=== PATIENT | female | born 1940 | race Caucasian/White ===

== ENCOUNTER → 2019-05-11 | Outpatient (CLI) | payer MEDICARE, OTHER ==
[~2019-05-11] MED LIST: ACETAMINOPHEN325 M1 PO; AMIODARONE HCL200 MG PO; CEFTRIAXONE SOD 1 GM/NS 50 ML 50 ML IV ONE; CLONIDINE HCL0.1 MG PO; CRESTOR10 MG PO; DULCOLAX SUPP10 MG RC; ELIQUIS PO; GABAPENTIN300 MG PO; GAS-X62.5 MG PO; HYDRALAZINE HCL 20 MG/ML VIAL ONE; HYDRALAZINE HCL25 MG PO; IOPAMIDOL 610MG/1ML 300 MG/ML VIAL IV ONE; LACTULOSE20 GM/30 M PO; LEVOTHYROXINE25 MCG PO; LISINOPRIL-HCT1 EAC1 PO; LISINOPRIL10 MG PO; MEDROL4 MG/DOSE- PO; METHOCARBAMOL750 MG PO; METOPROLOL TART25 MG PO; NORCO 10-325 T1 EACH PO; PANTOPRAZOLE SO40 MG PO; PLAVIX75 MG PO; SENNA LAXATIVE1 EACH PO; STRESS FORMULA1 EAC4 PO; ZANAFLEX4 MG PO
[2019-05-11 13:16] LABS: BASOPHILS # (AUTO) 0.1 (0.0-0.1); BASOPHILS % 0.7 % (0.0-1.0); EOSINOPHILS # (AUTO) 0.1 (0.0-0.4); EOSINOPHILS % 0.7 % (0.0-6.0); HEMATOCRIT 41.4 % (34.2-44.1); HEMOGLOBIN 14.4 g/dL (12.0-16.0); LYMPHOCYTES # (AUTO) 1.6 (1.0-3.2); LYMPHOCYTES % 23.2 % (18.0-39.1); MEAN CORPUSCULAR HEMOGLOBIN 30.8 pg (28-32); MEAN CORPUSCULAR HGB CONC 34.8 g/dL (31-35); MEAN CORPUSCULAR VOLUME 88.7 fL (81-99); MONOCYTES # (AUTO) 0.6 (0.2-0.8); MONOCYTES % 8.2 % (4.4-11.3); NEUTROPHILS # (AUTO) 4.7 (2.1-6.9); NEUTROPHILS % 66.9 % (38.7-80.0); PLATELET COUNT 195 x10e3/uL (140-360); RED BLOOD COUNT 4.67 x10e6/uL (3.6-5.1); RED CELL DISTRIBUTION WIDTH 13.5 % (11.7-14.4)
[2019-05-11 13:25] LABS: ANION GAP 13.6 mmol/L (8-16); CALCIUM 9.5 mg/dL (8.4-10.2); CREATININE, SERUM 1.2 mg/dL (0.57-1.11); POTASSIUM 3.6 mmol/L (3.5-5.1)
--- NOTE | 2019-05-11 14:09 | Diagnostic Imaging Report ---
EXAM: CHEST 2 VIEWS, PA and lateral DATE: 05/11/2019 Time stamp on exam: 1:13 PM INDICATION: Preoperative for abdominal surgery COMPARISON: 07/01/2017 FINDINGS: LINES/TUBES: There are wire sutures. Orthopedic hardware present involving the lower thoracic and upper lumbar spine LUNGS: No consolidations or edema. PLEURA: No effusions or pneumothorax. HEART AND MEDIASTINUM: Heart is enlarged. There is tortuosity of the thoracic aorta. BONES AND SOFT TISSUES: No acute findings. Degenerative changes of the spine. IMPRESSION: Cardiomegaly without evidence of decompensation. Signed by: Dr. Zane Davis DO on 05/11/2019 2:05 PM
--- OUTSIDE RECORDS SUMMARY | 2019-05-15 09:51 | XMS REPORT | Continuity of Care Document ---
Author Author [facility] Organization Interface Address Unknown Phone Unavailable Problems Problem Status Onset Date Classification Date Reported Comments Source STENOSIS Active 10/27/2016 [facility] BACK PAIN Active 08/10/2016 [facility] Thyroid disease Resolved 11/21/2012 Problem 08/13/2017 [facility] Abnormal EKG Active Problem 05/03/2019 [facility] Swelling of lower extremity Active Problem 05/03/2019 Candelario Shepard Varicose veins of bilateral lower extremities with other complications Active Problem 05/03/2019 Candelario Shepard Low back pain Active Problem 05/03/2019 Candelario Shepard HENDERSON Active Problem 05/03/2019 Candelario Shepard Encounter for pre-operative cardiovascular clearance Active Problem 05/03/2019 Candelario Shepard 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, unspecified whether [place] or transplanted heart Active Problem 05/03/2019 Candelario Shepard Atherosclerosis of [place] coronary artery of [place] heart without angina pectoris Active Problem 05/03/2019 Candelario Shepard Left ventricular diastolic dysfunction with preserved systolic function Active Problem 05/03/2019 Candelario Shepard Atherosclerosis of [place] arteries of extremity with intermittent claudication Active Problem 05/03/2019 Candelario Shepard Atherosclerosis of coronary artery bypass graft without angina pectoris Active Problem 05/03/2019 Candelario Shepard Hypercholesteremia Active Problem 05/03/2019 Candelario Shepard HTN, Benign Active Problem 07/30/2015 Candelario Shepard Shortness of breath Active Problem 07/30/2015 Candelario Shepard Atrial fibrillation Active Problem 07/30/2015 Cnadelario Shepard CABG Status Active Problem 07/30/2015 Candelario Shepard Atherosclerotic heart disease [place] coronary artery w/angina pectoris Active Problem 07/30/2015 Candelario Shepard Coronary atherosclerosis of unspecified type of bypass graft Active Problem 07/30/2015 Candelario Shepard Atherosclerosis of [place] arteries of the extremities with intermittent claudication Active Problem 07/30/2015 Candelario Shepard Angina Active Problem 07/30/2015 Candelario Shepard Arteriosclerosis of carotid artery Active Problem 07/30/2015 Candelario Shepard Chest Pain Active Problem 07/30/2015 Candelario Shepard Abnormal EKG Active Problem 07/30/2015 Candelario Shepard Swelling of limb Active Problem 07/30/2015 Candelario Shepard Hypercholesterolemia Active Problem 07/30/2015 Candelario Shepard PTCA Status Active Problem 07/30/2015 Candelario Shepard Sinus Bradycardia Active Problem 07/30/2015 Candelario Shepard Status post ablation of incompetent vein using laser Active Problem 05/03/2019 Candelario Shepard LAE Active Problem 05/03/2019 Candelario Shepard Nonrheumatic mitral insufficiency Active Problem 07/13/2016 Candelario Shepard Hypercholesteremia Active Problem 07/13/2016 Candelario Shepard Nonrheumatic tricuspid valve disorder Active Problem 07/13/2016 Candelario Shepard Diastolic dysfunction, left ventricle Active Problem 07/30/2015 Candelario Shepard Acute mitral insufficiency Active Problem 07/30/2015 Candelario Shepard Varicose veins of lower extremities with complications Active Problem 07/30/2015 Candelario Shepard Nonrheumatic tricuspid insufficiency Active Problem 07/30/2015 Candelario Shepard Essential hypertension Active Problem 05/03/2019 Candelario Shepard Atherosclerosis of [place] coronary artery of [place] heart with angina pectoris Active Problem 05/03/2019 Candelario Shepard Arteriosclerosis of both carotid arteries Active Problem 05/03/2019 Candelario Shepard Acquired stenosis of aortic valve Active Problem 05/03/2019 Candelario Shepard Personal history of other diseases of the circulatory system Active Problem 05/03/2019 Candelario Shepard Lumbago with sciatica, right side Active Problem 05/03/2019 Candelario Shepard Other chronic pain Active Problem 05/03/2019 Candelario Shepard Chronic a-fib Active Problem 05/03/2019 Candelario Shepard Nonrheumatic aortic valve stenosis Active Problem 05/03/2019 Candel[facility] Shepard Lumbago with sciatica, left side Active Problem 05/03/2019 Candelario Shepard Persistent atrial fibrillation Active Problem 05/03/2019 [facility] DDD , thoracolumbar(<span ID="[id number]">Confirmed</span>) Active Problem 08/13/2017 [facility] Diverticulosis Resolved Problem 08/13/2017 [facility] Stomach ulcer Active Problem 08/13/2017 [facility] GERD (<span ID="[id number]">Confirmed</span>) Active Problem 08/13/2017 [facility] HLD (<span ID="[id number]">Confirmed</span>) Active Problem 08/13/2017 [facility] HTN (<span ID="[id number]">Confirmed</span>) Active Problem 08/13/2017 [facility] Depression (<span ID="[id number]">Confirmed</span>) Active Problem 08/13/2017 [facility] Neuropathy Active Problem 08/13/2017 [facility] Hiatal hernia Active Problem 08/13/2017 [facility] OA (<span ID="[id number]">Confirmed</span>) Active Problem 08/13/2017 [facility] Spinal stenosis Active Problem 08/13/2017 [facility] Tingling in extremities<sup>1</sup> Active Problem 08/13/2017 [facility] Urinary incontinence in female Active Problem 08/13/2017 [facility] STENOSIS OF UNSPECIFIED LACRIMAL CANALIC Active [facility] Medications Medication Details Route Status Patient Instructions Ordering Provider Order Date Source Docusate Sodium 100 MG Oral Capsule 100 mg=1 cap, PO, BID, # 30 cap, 0 Refill(s) Active 11/08/2016 [facility] tizanidine 4 MG Oral Capsule [Zanaflex] 4 mg=1 cap, PO, TID, # 40 cap, 0 Refill(s) Active 11/08/2016 [facility] potassium phosphate + sodium chloride 0.9% INJ 250 mL 15 mmol, 5 mL, Route: IVPB, Drug form: INJ, ONCE, Dosing Weight 97.273, kg, Start date: 11/08/16 10:10:00 ELECTRIC ARC WELDER, Stop date: 11/08/16 10:10:00 CSTNotes: (Same as: K Phosphate.) 1 mMol phoshate has 1.47 mEq potassium Infuse over 4 hours Inactive 11/08/2016 [facility] potassium chloride 40 mEq, Route: PO, Drug form: ERTAB, ONCE, Dosing Weight 97.273, kg, Start date: 11/08/16 10:09:00 ELECTRIC AR[employer] WELDER, Stop date: 11/08/16 10:09:00 ELECTRIC ARC WELDER Inactive 11/08/2016 [facility] Reglan 10 mg, 2 mL, Route: IV, Drug form: INJ, ONCE, Dosing Weight 97.273, kg, Start date: 11/08/16 0:44:00 ELECTRIC AR[employer] WELDER, Stop date: 11/08/16 0:44:00 CSTNotes: (Same as: Reglan) Inactive 11/08/2016 [facility] Dulcolax Laxative 10 mg, 1 supp, Route: WI, Drug form: SUPP, ONCE, Dosing Weight 97.273, kg, Priority: NOW, Start date: 11/07/16 14:28:00 ELECTRIC AR[employer] WELDER, Stop date: 11/07/16 14:28:00 CSTNotes: (Same As: Dulcolax, Bisco- Lax) Inactive 11/07/2016 [facility] magnesium citrate 58.2 MG/ML Oral Solution 300 ml, Route: PO, Drug Form: LIQ, Dosing Weight 97.273, kg, ONCE, NOW, Start date: 11/07/16 14:28:00 ELECTRIC AR[employer] WELDER, Stop date: 11/07/16 14:28:00 CSTNotes: (Same as: Citrate of Magnesia) Concentration: 1.745 gm / 30 mL Inactive 11/07/2016 [facility] Calcium Gluconate 1,000 mg, 10 mL, Route: IVPB, Drug form: INJ, ONCE, Dosing Weight 97.273, kg, Start date: 11/07/16 7:53:00 ELECTRIC AR[employer] WELDER, Stop date: 11/07/16 7:53:00 CSTNotes: WASTE: F/P - Sink; Medication Review - Pomogatelsh Bin Inactive 11/07/2016 [facility] potassium chloride 20 mEq oral tablet, extended release 20 mEq, 1 tab, Route: PO, Drug form: ERTAB, ONCE, Dosing Weight 97.273, kg, Start date: 11/07/16 7:52:00 ELECTRIC AR[employer] WELDER, Stop date: 11/07/16 7:52:00 CSTNotes: (Same as: K- Dur 20) "Do Not Crush" With food and full glass of water Inactive 11/07/2016 [facility] Sodium Chloride 0.154 MEQ/ML Injectable Solution 1,000 mL, 1,000 ml/hr, Infuse Over: 1 hr, Route: IV, 1,000, Drug form: INJ, ONCE, Priority: STAT, Dosing Weight 97.273 kg, Start date: 11/06/16 11:32:00 ELECTRIC AR[employer] WELDER, Duration: 1 doses or times, Stop date: 11/06/16 11:32:00 ELECTRIC ARC WELDER Inactive 11/06/2016 [facility] Calcium Gluconate 1,000 mg, 10 mL, Route: IVPB, Drug form: INJ, ONCE, Dosing Weight 97.273, kg, Start date: 11/06/16 11:19:00 ELECTRIC AR[employer] WELDER, Stop date: 11/06/16 11:19:00 CSTNotes: WASTE: F/P - Sink; RIDERSsh Bin Inactive 11/06/2016 [facility] Protonix 40 mg, 1 tab, Route: PO, Drug form: ECTAB, Daily, Dosing Weight 97.273, kg, Start date: 11/06/16 9:00:00 ELECTRIC AR[employer] WELDER, Duration: 30 day, Stop date: 12/05/16 9:00:00 CSTNotes: Tablet should not be chewed or crushed. (Same as: Protonix) No Longer Active 11/06/2016 [facility] Hydralazine Hydrochloride 50 MG Oral Tablet 50 mg, 2 tab, Route: PO, Drug form: TAB, Daily, Dosing Weight 97.273, kg, Start date: 11/06/16 9:00:00 ELECTRIC AR[employer] WELDER, Duration: 30 day, Stop date: 12/05/16 9:00:00 CSTNotes: (Same as: Apresoline) May interfere w/enteral feedings Take With Food. No Longer Active 11/06/2016 [facility] ceFAZolin (SCIP) 2 gm, 100 mL, Route: IVPB, Drug form: INJ, ABXQ8H, Dosing Weight 97.273, kg, Start date: 11/05/16 17:30:00 ELECTRIC AR[employer] WELDER, Duration: 3 doses or times, Stop date: 11/06/16 9:30:00 CSTNotes: Same as: Ancef No Longer Active 11/05/2016 [facility] hydrochlorothiazide 25 mg oral tablet 12.5 mg, 0.5 tab, Route: PO, Drug form: TAB, QPM, Start date: 11/05/16 17:00:00 ELECTRIC AR[employer] WELDER, Duration: 30 day, Stop date: 12/04/16 17:00:00 CSTNotes: (Same as: Hydrodiuril) With food. No Longer Active 11/05/2016 [facility] Docusate 100 mg, 1 cap, Route: PO, Drug form: CAP, BID, Dosing Weight 96.364, kg, Start date: 11/05/16 17:00:00 ELECTRIC AR[employer] WELDER, Duration: 30 day, Stop date: 12/05/16 9:00:00 CSTNotes: (Same as: Colace) (Do Not Crush) No Longer Active 11/05/2016 [facility] Prinivil 10 mg, 1 tab, Route: PO, Drug form: TAB, QPM, Start date: 11/05/16 17:00:00 ELECTRIC AR[employer] WELDER, Duration: 30 day, Stop date: 12/04/16 17:00:00 CSTNotes: (Same as: Prinivil, Zestril) No Longer Active 11/05/2016 [facility] Docusate Sodium 100 MG Oral Capsule 100 mg, Route: PO, Drug form: CAP, BID, Dosing Weight 97.273, kg, Start date: 11/05/16 17:00:00 ELECTRIC ARC WELDER, Duration: 30 day, Stop date: 12/05/16 9:00:00 ELECTRIC ARC WELDER Inactive 11/05/2016 [facility] metoprolol tartrate 12.5 mg, 0.5 tab, Route: PO, Drug form: TAB, BID, Dosing Weight 97.273, kg, Start date: 11/05/16 17:00:00 ELECTRIC ARC WELDER, Duration: 30 day, Stop date: 12/05/16 9:00:00 CSTNotes: (Same as: Lopressor) No Longer Active 11/05/2016 [facility] Hydrochlorothiazide 25 MG / Lisinopril 20 MG Oral Tablet 0.5 tab, Route: PO, Drug Form: TAB, Dosing Weight 97.273, kg, QPM, Start date: 11/05/16 17:00:00 ELECTRIC AR[employer] WELDER, Duration: 30 day, Stop date: 12/04/16 17:00:00 ELECTRIC ARC WELDER Inactive 11/05/2016 [facility] Zanaflex 4 mg, 1 tab, Route: PO, Drug form: TAB, Q8H, Dosing Weight 97.273, kg, Start date: 11/05/16 16:00:00 ELECTRIC AR[employer] WELDER, Duration: 30 day, Stop date: 12/05/16 8:00:00 CSTNotes: (Same As: Zanaflex) No Longer Active 11/05/2016 [facility] Lactated Ringers 1,000 mL 1,000 mL, Rate: 999 ml/hr, Infuse over: 1 hr, Route: IV, Dosing Weight 97.273 kg, Total Volume: 1,000, Start date: 11/05/16 15:53:00 ELECTRIC AR[employer] WELDER, Duration: 1 doses or times, Stop date: 11/05/16 16:52:00 ELECTRIC ARC WELDER Inactive 11/05/2016 [facility] Hydromorphone 15 mg, 30 mL, Route: IV, Initial Loading Dose: 0.4mg, [employer] STATION OPERATOR Dose: 0.2 mg, [employer]EN[employer]IFUG[employer] STATION OPERATOR Lockout: 10 minutes, Continuous Basal Rate: 0 mg, 4 Hour Limit (In MG): 6, Drug Form: INJ, Continuous, Start date: 11/05/16 12:00:00 ELECTRIC AR[employer] WELDER, Duration: 30 day, Stop date: 12/05/16...Notes: (Same as: Dilaudid) conc=0.5 mg/ml Hydromorphone CENTRIFUGAL STATION OPERATOR Dose: ;Delay: ;Basal: No Longer Active 11/05/2016 [facility] Naloxone 0.04 mg, 0.1 mL, Route: IVP, Drug form: INJ, Q2MIN, Dosing Weight 97.273, kg, PRN Narcotic Reversal, Start date: 11/05/16 11:42:00 ELECTRIC AR[employer] WELDER, Duration: 30 day, Stop date: 12/05/16 11:41:00 CSTNotes: Same as Narcan No Longer Active 11/05/2016 [facility] D5W 1/2NS + KCL 20mEq/L 1000ml (Premix) 1,000 mL 1,000 mL, Rate: 75 ml/hr, Infuse over: 13.3 hr, Route: IV, Dosing Weight 97.273 kg, Total Volume: 1,000, Start date: 11/05/16 11:42:00 ELECTRIC ARC WELDER, Duration: 30 day, Stop date: 12/05/16 11:41:00 CSTNotes: PREMIX IV - Do Not Alter WASTE: F/P - Sink; E - Municipal Trash Bin No Longer Active 11/05/2016 [facility] Saline Flush 0.9% 10 ml, Route: IVP, Drug Form: INJ, Dosing Weight 97.273, kg, PRN, PRN Line Flush, Start date: 11/05/16 11:42:00 ELECTRIC ARC WELDER, Duration: 30 day, Stop date: 12/05/16 11:41:00 CSTNotes: Same as: BD Posiflush Sterile No Longer Active 11/05/2016 [facility] Milk of Magnesia 30 ml, Route: PO, Drug Form: SUSP, Dosing Weight 97.273, kg, Daily, PRN as needed for constipation, Until bowel movement, Start date: 11/05/16 11:42:00 ELECTRIC ARC WELDER, Duration: 30 day, Stop date: 12/05/16 11:4 1:00 CSTNotes: (Same as: Milk of Magnesia, MOM) No Longer Active 11/05/2016 [facility] Diphenhydramine 12.5 mg, 5 mL, Route: PO, Drug form: LIQ, Q6H, Dosing Weight 97.273, kg, PRN Itching, Start date: 11/05/16 11:42:00 ELECTRIC ARC WELDER, Duration: 30 day, Stop date: 12/05/16 11:41:00 CSTNotes: (Same as: Benadryl) No Longer Active 11/05/2016 [facility] Al hydroxide/Mg hydroxide/simethicone 200 mg-200 mg-20 mg/5 mL oral suspension 30 ml, Route: PO, Drug Form: SUSP, Dosing Weight 97.273, kg, Q4H, PRN Indigestion, Start date: 11/05/16 11:42:00 ELECTRIC ARC WELDER, Duration: 30 day, Stop date: 12/05/16 11:41:00 CSTNotes: (aluminum hydroxide-magnesium hyd- simethicone 470-427-97mh/5ml 30 ml ud MARGARITO) No Longer Active 11/05/2016 [facility] Ondansetron 4 mg, 2 mL, Route: IVP, Drug form: INJ, Q6H, Dosing Weight 97.273, kg, PRN Nausea & Vomiting, Start date: 11/05/16 11:42:00 ELECTRIC ARC WELDER, Duration: 30 day, Stop date: 12/05/16 11:41:00 CSTNotes: (Same as: Zofran) MEDICATION WASTE Product Size: 4 mg Product Wasted: ___ mg No Longer Active 11/05/2016 [facility] Dulcolax Laxative 5 mg, 1 tab, Route: PO, Drug form: ECTAB, Q24H, Dosing Weight 97.273, kg, PRN Constipation, Start date: 11/05/16 11:42:00 ELECTRIC ARC WELDER, Duration: 30 day, Stop date: 12/05/16 11:41:00 CSTNotes: (Same As: Dulco lax, Correctol) (Do Not Crush) "Do Not Crush" No Longer Active 11/05/2016 [facility] Acetaminophen 325 MG / Hydrocodone Bitartrate 10 MG Oral Tablet 2 tab, Route: PO, Drug Form: TAB, Dosing Weight 97.273, kg, Q4H, PRN Pain Score 4-6, Start date: 11/05/16 11:42:00 ELECTRIC ARC WELDER, Duration: 30 day, Stop date: 12/05/16 11:41:00 CSTNotes: Do not exceed 4gm/day of acetaminophen. (Same as: [place] 325/10) No Longer Active 11/05/2016 [facility] Ondansetron 4 mg, 2 mL, Route: IVP, Drug form: INJ, ONCE, Dosing Weight 97.273, kg, PRN Nausea & Vomiting, Start date: 11/05/16 9:36:00 CSTNotes: (Same as: Zofran) MEDICATION WASTE Product Size: 4 mg Product Wasted: ___ mg Inactive 11/05/2016 [facility] Naloxone 0.4 mg, 1 mL, Route: IVP, Drug form: INJ, Q2MIN, Dosing Weight 97.273, kg, PRN Narcotic Reversal, Start date: 11/05/16 9:36:00 ELECTRIC ARC WELDER, Duration: 8 doses or times, Stop date: Limited # of timesNotes: Same as Narcan Inactive 11/05/2016 [facility] Flumazenil 0.2 mg, 2 mL, Route: IVP, Drug form: INJ, PRN, Dosing Weight 97.273, kg, PRN Benzodiazepine Reversal, Initial dose, Start date: 11/05/16 9:36:00 ELECTRIC ARC WELDER, Duration: 30 day, Stop date: 12/05/16 9:35:00 ELECTRIC ARC WELDER Notes: (Same as: Romazicon) Inactive 11/05/2016 [facility] Morphine 4 mg, 0.4 mL, Route: IVP, Drug form: INJ, Q5Min, Dosing Weight 97.273, kg, PRN Pain Score 7-10, Start date: 11/05/16 9:36:00 ELECTRIC ARC WELDER, Duration: 3 doses or times, Stop date: Limited # of timesNotes: (Same as:MORPhine Sulfate) Inactive 11/05/2016 [facility] Oxycodone 5 mg, 1 tab, Route: PO, Drug form: TAB, Q4H, Dosing Weight 97.273, kg, PRN Pain Score 4-6, Start date: 11/05/16 9:36:00 ELECTRIC ARC WELDER, Duration: 30 day, Stop date: 12/05/16 9:35:00 CSTNotes: (Same as: Roxicodone) Inactive 11/05/2016 [facility] Fentanyl 25 microgram, 0.5 mL, Route: IVP, Drug form: INJ, Q5Min, Dosing Weight 97.273, kg, PRN Headache 4-6, Priority: Routine, Start date: 11/05/16 9:36:00 ELECTRIC ARC WELDER, Duration: 4 doses or times, Stop date: Limited # of timesNotes: (Same as: Sublimaze) Preservative free. Inactive 11/05/2016 [facility] Labetalol 10 mg, 2 mL, Route: IVP, Drug form: INJ, Q5Min, Dosing Weight 97.273, kg, PRN Elevated BP, Start date: 11/05/16 9:36:00 ELECTRIC ARC WELDER, Duration: 5 doses or times, Stop date: Limited # of times Inactive 11/05/2016 [facility] Acetaminophen 1,000 mg, 2 tab, Route: PO, Drug form: TAB, ONCE, Dosing Weight 97.273, kg, PRN Pain Score 1-3, Start date: 11/05/16 9:36:00 ELECTRIC ARC WELDER, Duration: 1 doses or times, Stop date: Limited # of timesNotes: Max acetaminophen 4000 mg/day (4 gm/day). (Same as: Tylenol Extra Strength) Inactive 11/05/2016 [facility] Hydromorphone 0.5 mg, 0.25 mL, Route: IVP, Drug form: INJ, Q5Min, Dosing Weight 97.273, kg, PRN Pain Score 7-10, Start date: 11/05/16 9:36:00 ELECTRIC ARC WELDER, Duration: 4 doses or times, Stop date: Limited # of timesNotes: Sa me as Dilaudid Inactive 11/05/2016 [facility] Lactated Ringers 1,000 mL 1,000 mL, Rate: 40 ml/hr, Infuse over: 25 hr, Route: IV, Dosing Weight 97.273 kg, Total Volume: 1,000, Start date: 11/05/16 7:28:00 ELECTRIC ARC WELDER, Duration: 30 day, Stop date: 12/05/16 7:27:00 ELECTRIC ARC WELDER No Longer Active 11/05/2016 [facility] Ondansetron 4 mg, 2 mL, Route: IVP, Drug form: INJ, Q6H, Dosing Weight 96.364, kg, PRN Nausea & Vomiting, Start date: 11/05/16 6:37:00 ELECTRIC ARC WELDER, Duration: 30 day, Stop date: 12/05/16 6:36:00 CSTNotes: (Same as: Elizabeth) MEDICATION WASTE Product Size: 4 mg Product Wasted: ___ mg Inactive 11/05/2016 [facility] Acetaminophen 650 mg, 2 tab, Route: PO, Drug form: TAB, Q4H, Dosing Weight 96.364, kg, PRN Pain 1-3/Temp > 100.4 F, Start date: 11/05/16 6:37:00 ELECTRIC ARC WELDER, Duration: 30 day, Stop date: 12/05/16 6:36:00 CSTNotes: Do not exceed 4 gm/day. (Same as: Tylenol) No Longer Active 11/05/2016 [facility] Aleve 220 mg, PO, PRN, 0 Refill(s) No Longer Active 10/30/2016 [facility] Tylenol 1,000 mg, PO, PRN, 0 Refill(s) Active 10/30/2016 [facility] DULoxetine 20 mg oral delayed release capsule 20 mg=1 cap, PO, Daily, # 30 cap, 0 Refill(s) No Longer Active 10/30/2016 [facility] diclofenac potassium 50 mg oral tablet 50 mg=1 tab, PO, Daily, 0 Refill(s) No Longer Active 10/30/2016 [facility] clopidogrel 75 MG Oral Tablet [Plavix] 75 mg=1 tab, PO, Daily, # 90 tab, 0 Refill(s) Active 10/30/2016 [facility] Hydralazine Hydrochloride 50 MG Oral Tablet 50 mg=1 tab, PO, Daily, 0 Refill(s) Active 10/30/2016 [facility] pantoprazole 40 MG Enteric Coated Tablet [Protonix] 40 mg=1 tab, PO, PRN, 0 Refill(s) Active 10/30/2016 [facility] metoprolol tartrate 25 mg oral tablet 12.5 mg=0.5 tab, PO, BID, TAKE AM DOS, # 180 tab, 0 Refill(s) Active 10/30/2016 [facility] Hydrochlorothiazide 25 MG / Lisinopril 20 MG Oral Tablet 0.5 tab, PO, QPM, # 90 tab, 0 Refill(s) No Longer Active 10/30/2016 [facility] Lisinopril-Hydrochlorothiazide 1 tablet Orally Active 20-25 MG Orally Once a day Devyn Shepard Lisinopril-Hydrochlorothiazide 1/2 half tablet Orally Active 20-25 MG Orally Once a day Devyn Shepard Crestor 1 tablet Orally Active 20 mg Orally Once a day Devyn Shepard Metoprolol Tartrate 1/2 tablet Orally Active 25 MG Orally Twice a day Devyn Shepard Rosuvastatin Calcium 1 tablet Orally Active 10 MG Orally Once a day Devyn Shepard HydrALAZINE HCl 1/2 half tablet Orally Active 50 MG Orally daily Devyn Shepard Ergocalciferol 1 capsule Orally Active 82427 UNIT Orally qweekly Devyn Shepard Clopidogrel Bisulfate TAKE 1 TABLET BY MOUTH EVERY DAY Orally Active 75 mg Orally once a day Devyn Shepard Allergies, Adverse Reactions, Alerts Substance Category Reaction Severity Reaction type Status Date Reported Comments Source Zocor Adverse Reaction intolerance Adverse Reaction Active 08/16/2017 Candel[facility] She[facility] Zetia Adverse Reaction intolerance Adverse Reaction Active 08/16/2017 Candel[facility] Shepard Pravastatin Sodium Adverse Reaction intolerance Adverse Reaction Active 08/16/2017 [facility]ap[facility] Naproxen Adverse Reaction ?Allergic Reaction Adverse Reaction Active 08/16/2017 Candel[facility] Shepard Lipitor Adverse Reaction muscle cramps Adverse Reaction Active 08/16/2017 Candel[facility] Shepard codeine Assertion Drug allergy Active [facility] CODEINE, AND DEMEROL Assertion Drug allergy Active [facility] Demerol Assertion RESPIRATORY DIFFICULTY, DIAPHORESIS Drug allergy Active [facility] Betadine Assertion BURNED SKIN Severe Drug allergy Active [facility] iodine topical Assertion Drug allergy Active [facility] Immunizations Immunization Date Given Site Status Last Updated Comments Source Hx influenza vaccine-unspecified 07/29/2016 completed [facility], [facility] Results Order Name Results Value Reference Range Date Interpretation Comments Source Spine cervical wo contrast MRI Spine cervical wo contrast MRI MRI CERVICAL SPINE WITHOUT CONTRAST 08/10/2017 10:04 AM CDT TECHNIQUE: Multiplanar multisequence imaging of the cervical spine was performed without administration of intravenous gadolinium. COMPARISON: 08/10/2016 MRI exam. FINDINGS: Multilevel disc desiccation is seen. C1-C2: Unremarkable. C2-C3: More prominent 3.9 mm disc protrusion with moderate central canal stenosis and mild cord indentation. Mild ligamenta flava redundancy. No foraminal stenosis. C3-C4: Stable 2 mm posterior disc osteophyte complex with mild central canal stenosis and minimal cord indentation. Mild bilateral foraminal stenosis. C4-C5: Less prominent 2.5 mm posterior disc osteophyte complex, with mild ligamenta flava redundancy and mild to moderate central canal stenosis. Stable severe bilateral foraminal stenosis. C5-C6: Stable 4 mm right paracentral disc protrusion with mild ligamenta flava redundancy and moderate central canal stenosis. Mild cord indentation. Severe bilateral foraminal stenosis due to foraminal osteophytes and UVJ arthrosis. C6-C7: Less prominent 3 mm posterior disc osteophyte complex with mild central canal stenosis and mild central canal stenosis. Severe bilateral foraminal stenosis. C7-T1: Unremarkable. T1-T2 2 mm disc protrusion with mild central canal stenosis. The cervical cord signal is unremarkable without MRI evidence of myelomalacia. IMPRESSION: 1. Multilevel disc degenerative disease and spondylosis. 2. Several levels of mild to moderate central canal stenosis and corresponding cord indentation, most prominent at C2-C3, C4-C5, C5-C6 levels. No MRI evidence of spinal cord myelomalacia. 3. Multilevel severe foraminal stenosis. 08/10/2017 - - Read by: Wali Hawley MD Dictated Date/time: 08/10/17 13:24 Electronically Signed by: Wali Hawley MD 08/10/17 13:29 FINAL REPORT [facility] CHEM PANEL eGFR 63 mL/min/1.73m2 11/08/2016 Result Comment: The eGFR is calculated using the CKD-EPI formula. In most young, healthy individuals the eGFR will be >90 mL/min/1.73m2. The eGFR declines with age. An eGFR of 60-89 may be normal in some populations, particularly the elderly, for whom the CKD-EPI formula has not been extensively validated. Use of the eGFR is not recommended in the following populations: Individuals with unstable creatinine concentrations, including patients and those with serious co-morbid conditions. Patients with extremes in muscle mass or diet. The data above are obtained from the National Kidney Disease Education Program (NKDEP) which additionally recommends that when the eGFR is used in patients with extremes of body mass index for purposes of drug dosing, the eGFR should be multiplied by the estimated BMI. [facility] CHEM PANEL Sodium Lvl 138 meq/L 135 - 145 11/08/2016 [facility] CHEM PANEL Potassium Lvl 3.4 meq/L 3.5 - 5.1 11/08/2016 [facility] CHEM PANEL Chloride Lvl 103 meq/L 95 - 109 11/08/2016 [facility] CHEM PANEL CO2 31 meq/L 24 - 32 11/08/2016 [facility] CHEM PANEL Calcium Lvl 8.1 mg/dL 8.5 - 10.5 11/08/2016 [facility] CHEM PANEL AGAP 7.4 meq/L 10.0 - 20.0 11/08/2016 [facility] CHEM PANEL BUN 14 mg/dL 7 - 22 11/08/2016 [facility] CHEM PANEL Glucose Lvl 127 mg/dL 70 - 99 11/08/2016 [facility] CHEM PANEL Creatinine Lvl 0.89 mg/dL 0.50 - 1.40 11/08/2016 [facility] CHEM PANEL Phosphorus 2.1 mg/dL 2.5 - 4.5 11/08/2016 [facility] CHEM PANEL Magnesium Lvl 1.9 mg/dL 1.8 - 2.4 11/08/2016 [facility] HEMATOLOGY Platelet 125 K/CMM 133 - 450 11/08/2016 [facility] HEMATOLOGY MPV 8.5 fL 7.4 - 10.4 11/08/2016 [facility] HEMATOLOGY MCHC 35.1 g/dL 32.0 - 36.0 11/08/2016 [facility] HEMATOLOGY MCH 31.0 pg 27.0 - 31.0 11/08/2016 [facility] HEMATOLOGY RDW 13.4 % 11.5 - 14.5 11/08/2016 [facility] HEMATOLOGY MCV 88.1 fL 80.0 - 98.0 11/08/2016 [facility] HEMATOLOGY Hct 26.9 % 36.0 - 48.0 11/08/2016 [facility] HEMATOLOGY RBC 3.06 M/CMM 4.20 - 5.40 11/08/2016 [facility] HEMATOLOGY WBC 9.0 K/CMM 3.7 - 10.4 11/08/2016 [facility] HEMATOLOGY Hgb 9.5 g/dL 12.0 - 16.0 11/08/2016 [facility] Spine T-L (or entire) 2-3 Views DX Spine T-L (or entire) 2-3 Views DX EXAM: XR THORACOLUMBAR SPINE 2 VIEWS DATE: 11/08/2016 8:00 AM ELECTRIC ARC WELDER INDICATION: Pain, Thoracic region COMPARISON: Thoracic spine series 12/31/2013 TECHNIQUE: AP and lateral radiographs of the lumbar spine FINDINGS: Interval performance of posterior spinal fusion at T10-L3. Discectomy with disc spacer at L2-L3. Satisfactory alignment of fusion hardware without hardware complication identified. Generalized diminished bone mineral density. Mild increase in normal thoracic kyphosis. Imaged thoracal lumbar vertebral body heights are maintained. Moderate degenerative disc disease throughout the lower thoracic and upper lumbar spine. Mature ankylosis of the posterior elements of at L3-S1. Moderate arterial calcification is noted. Right internal jugular central venous catheter present with tip at the cavoatrial junction. Diffuse gaseous distention of the colon. IMPRESSION: 1. Posterior spinal fusion at T10-L3 and discectomy at L2-L3 without complication identified. 2. Diffuse gaseous distention of the colon, likely representing ileus. 11/08/2016 - - Read by: Frankie Mtz MD Dictated Date/time: 11/08/16 15:05 Electronically Signed by: Frankie Mtz MD 11/08/16 15:08 FINAL REPORT [facility] ELECTROLYTES AGAP 9.5 meq/L 10.0 - 20.0 11/07/2016 [facility] ELECTROLYTES eGFR 56 mL/min/1.73m2 11/07/2016 Result Comment: The eGFR is calculated using the CKD-EPI formula. In most young, healthy individuals the eGFR will be >90 mL/min/1.73m2. The eGFR declines with age. An eGFR of 60-89 may be normal in some populations, particularly the elderly, for whom the CKD-EPI formula has not been extensively validated. Use of the eGFR is not recommended in the following populations: Individuals with unstable creatinine concentrations, including patients and those with serious co-morbid conditions. Patients with extremes in muscle mass or diet. The data above are obtained from the National Kidney Disease Education Program (NKDEP) which additionally recommends that when the eGFR is used in patients with extremes of body mass index for purposes of drug dosing, the eGFR should be multiplied by the estimated BMI. [facility] ELECTROLYTES Creatinine Lvl 0.99 mg/dL 0.50 - 1.40 11/07/2016 [facility] ELECTROLYTES BUN 11 mg/dL 7 - 22 11/07/2016 [facility] ELECTROLYTES Sodium Lvl 136 meq/L 135 - 145 11/07/2016 [facility] ELECTROLYTES Glucose Lvl 114 mg/dL 70 - 99 11/07/2016 [facility] ELECTROLYTES Calcium Lvl 7.5 mg/dL 8.5 - 10.5 11/07/2016 [facility] ELECTROLYTES Potassium Lvl 3.5 meq/L 3.5 - 5.1 11/07/2016 [facility] ELECTROLYTES CO2 28 meq/L 24 - 32 11/07/2016 [facility] ELECTROLYTES Chloride Lvl 102 meq/L 95 - 109 11/07/2016 [facility] HEMATOLOGY WBC 8.0 K/CMM 3.7 - 10.4 11/07/2016 [facility] HEMATOLOGY RBC 2.97 M/CMM 4.20 - 5.40 11/07/2016 [facility] HEMATOLOGY Hgb 9.1 g/dL 12.0 - 16.0 11/07/2016 [facility] HEMATOLOGY Hct 26.3 % 36.0 - 48.0 11/07/2016 [facility] HEMATOLOGY MCHC 34.8 g/dL 32.0 - 36.0 11/07/2016 [facility] HEMATOLOGY RDW 13.4 % 11.5 - 14.5 11/07/2016 [facility] HEMATOLOGY MCV 88.4 fL 80.0 - 98.0 11/07/2016 [facility] HEMATOLOGY MCH 30.8 pg 27.0 - 31.0 11/07/2016 [facility] HEMATOLOGY Platelet 109 K/CMM 133 - 450 11/07/2016 [facility] HEMATOLOGY MPV 8.3 fL 7.4 - 10.4 11/07/2016 [facility] Chest 1view DX Chest 1view DX EXAM: XR CHEST 1 VIEW DATE: 11/06/2016 INDICATION: Line Placement . Comparison is made with 10/16/2013 from an outside facility. FINDINGS: In the three-year interval the patient has undergone a median sternotomy. 2 rods and interpedicular screws are seen transfixing the lower thoracic spine and are only partially visualized. There is a right jugular central line with its tip in the distal superior vena cava. Cardiomediastinal silhouette is stable. Costophrenic sulci are sharp without effusion. The lungs are clear except for platelike atelectasis in the left lower lobe IMPRESSION: New median sternotomy, new orthopedic hardware and a new right jugular central line. 11/06/2016 - - Read by: Kalyani Gr MD Dictated Date/time: 11/06/16 17:53 Electronically Signed by: Kalyani Gr MD 11/06/16 17:55 FINAL REPORT [facility] CHEM PANEL Calcium Lvl 7.5 mg/dL 8.5 - 10.5 11/06/2016 [facility] CHEM PANEL eGFR 43 mL/min/1.73m2 11/06/2016 Result Comment: The eGFR is calculated using the CKD-EPI formula. In most young, healthy individuals the eGFR will be >90 mL/min/1.73m2. The eGFR declines with age. An eGFR of 60-89 may be normal in some populations, particularly the elderly, for whom the CKD-EPI formula has not been extensively validated. Use of the eGFR is not recommended in the following populations: Individuals with unstable creatinine concentrations, including patients and those with serious co-morbid conditions. Patients with extremes in muscle mass or diet. The data above are obtained from the National Kidney Disease Education Program (NKDEP) which additionally recommends that when the eGFR is used in patients with extremes of body mass index for purposes of drug dosing, the eGFR should be multiplied by the estimated BMI. [facility] CHEM PANEL CO2 28 meq/L 24 - 32 11/06/2016 [facility] CHEM PANEL Chloride Lvl 102 meq/L 95 - 109 11/06/2016 [facility] CHEM PANEL Glucose Lvl 132 mg/dL 70 - 99 11/06/2016 [facility] CHEM PANEL Creatinine Lvl 1.23 mg/dL 0.50 - 1.40 11/06/2016 [facility] CHEM PANEL BUN 12 mg/dL 7 - 22 11/06/2016 [facility] CHEM PANEL Potassium Lvl 3.6 meq/L 3.5 - 5.1 11/06/2016 [facility] CHEM PANEL Sodium Lvl 139 meq/L 135 - 145 11/06/2016 [facility] CHEM PANEL AGAP 12.6 meq/L 10.0 - 20.0 11/06/2016 [facility] HEMATOLOGY MCH 30.3 pg 27.0 - 31.0 11/06/2016 [facility] HEMATOLOGY MCV 89.0 fL 80.0 - 98.0 11/06/2016 [facility] HEMATOLOGY MCHC 34.0 g/dL 32.0 - 36.0 11/06/2016 [facility] HEMATOLOGY WBC 11.3 K/CMM 3.7 - 10.4 11/06/2016 [facility] HEMATOLOGY RDW 13.8 % 11.5 - 14.5 11/06/2016 [facility] HEMATOLOGY Platelet 184 K/CMM 133 - 450 11/06/2016 [facility] HEMATOLOGY Hgb 11.1 g/dL 12.0 - 16.0 11/06/2016 [facility] HEMATOLOGY RBC 3.66 M/CMM 4.20 - 5.40 11/06/2016 [facility] HEMATOLOGY Hct 32.6 % 36.0 - 48.0 11/06/2016 [facility] HEMATOLOGY MPV 8.4 fL 7.4 - 10.4 11/06/2016 [facility] HEMATOLOGY Lymphocytes 11.6 % 20.0 - 40.0 11/06/2016 [facility] HEMATOLOGY Segs 79.6 % 45.0 - 75.0 11/06/2016 [facility] HEMATOLOGY Basophils # 0.1 K/CMM 0.0 - 0.2 11/06/2016 [facility] HEMATOLOGY Monocytes # 0.9 K/CMM 0.0 - 0.8 11/06/2016 [facility] HEMATOLOGY Monocytes 8.1 % 2.0 - 12.0 11/06/2016 [facility] HEMATOLOGY Basophils 0.6 % 0.0 - 1.0 11/06/2016 [facility] HEMATOLOGY Eosinophils 0.1 % 0.0 - 4.0 11/06/2016 [facility] HEMATOLOGY Lymphocytes # 1.3 K/CMM 1.0 - 5.5 11/06/2016 [facility] HEMATOLOGY Segs-Bands # 9.0 K/CMM 1.5 - 8.1 11/06/2016 [facility] ELECTROLYTES POC AGAP 18.0 meq/L 10.0 - 20.0 11/05/2016 [facility] ELECTROLYTES POC Ion Ca 1.23 mMol/L 1.05 - 1.25 11/05/2016 [facility] ELECTROLYTES POC Glucose 104 mg/dL 70 - 99 11/05/2016 [facility] ELECTROLYTES POC Creatinine 1.0 mg/dL 0.5 - 1.4 11/05/2016 [facility] ELECTROLYTES POC Hematocrit 34.0 % 36.0 - 48.0 11/05/2016 [facility] ELECTROLYTES POC Hemoglobin 11.6 g/dL 12.0 - 16.0 11/05/2016 [facility] ELECTROLYTES POC BUN 8 mg/dL 7 - 22 11/05/2016 [facility] ELECTROLYTES POC Carbon Dioxide 24 mEq/dL 24 - 32 11/05/2016 [facility] ELECTROLYTES POC Potassium 3.2 meq/L 3.5 - 5.1 11/05/2016 [facility] ELECTROLYTES POC Sodium 141 meq/L 135 - 145 11/05/2016 [facility] ELECTROLYTES POC Chloride 104 meq/L 95 - 109 11/05/2016 [facility] BLOOD BANK RESULTS RBC product Product available (11/05/16 5:00 AM) 11/05/2016 [facility] BLOOD BANK RESULTS Antibody Scrn Negative (11/01/16 11:15 AM) 11/01/2016 [facility] BLOOD BANK RESULTS ABO/Rh O POS 11/01/2016 [facility] CHEM PANEL Bili Total 1.2 mg/dL 0.2 - 1.3 11/01/2016 [facility] CHEM PANEL ASPARTATE TRANSAMINASE 14 unit/L 0 - 37 11/01/2016 [facility] CHEM PANEL ALANINE AMINOTRANSFERASE 20 unit/L 0 - 65 11/01/2016 [facility] CHEM PANEL Alk Phos 90 unit/L 39 - 136 11/01/2016 [facility] CHEM PANEL Albumin Lvl 3.5 g/dL 3.5 - 5.0 11/01/2016 [facility] CHEM PANEL Total Protein 6.8 g/dL 6.4 - 8.4 11/01/2016 [facility] CHEM PANEL A/G Ratio 1.1 0.7 - 1.6 11/01/2016 [facility] CHEM PANEL B/C Ratio 13 6 - 25 11/01/2016 [facility] CHEM PANEL Globulin 3.3 g/dL 2.7 - 4.2 11/01/2016 [facility] HEMATOLOGY INR 1.00 0.85 - 1.17 11/01/2016 [facility] HEMATOLOGY aPTT 27.2 s 22.9 - 35.8 11/01/2016 [facility] HEMATOLOGY PROTIME 13.4 s 12.0 - 14.7 11/01/2016 [facility] HEMATOLOGY Segs-Bands # 3.2 K/CMM 1.5 - 8.1 11/01/2016 [facility] HEMATOLOGY Eosinophils 1.4 % 0.0 - 4.0 11/01/2016 [facility] HEMATOLOGY Basophils 1.4 % 0.0 - 1.0 11/01/2016 [facility] HEMATOLOGY Monocytes 9.5 % 2.0 - 12.0 11/01/2016 [facility] HEMATOLOGY Basophils # 0.1 K/CMM 0.0 - 0.2 11/01/2016 [facility] HEMATOLOGY Segs 54.3 % 45.0 - 75.0 11/01/2016 [facility] HEMATOLOGY Lymphocytes 33.4 % 20.0 - 40.0 11/01/2016 [facility] HEMATOLOGY Lymphocytes # 2.0 K/CMM 1.0 - 5.5 11/01/2016 [facility] HEMATOLOGY Monocytes # 0.6 K/CMM 0.0 - 0.8 11/01/2016 [facility] HEMATOLOGY Eosinophils # 0.1 K/CMM 0.0 - 0.5 11/01/2016 [facility] Spine cervical wo contrast MRI Spine cervical wo contrast MRI EXAM: MRI CERVICAL SPINE DATE: 08/10/2016 11:28 AM CDT INDICATION: spinal stenosis, cervical region. COMPARISON: None. TECHNIQUE: Multiplanar multisequence MRI examination of the cervical spine was performed. FINDINGS: Cervical spine alignment is unremarkable. No fractures or destructive osseous lesions are identified. Marrow signal is normal. The C5-C7 intervertebral discs are severely diminished in height and severely desiccated. Moderate loss of height and moderate to severe desiccation of the C4-C5 intervertebral disc is seen. Remaining cervical intervertebral discs are mildly diminished in height and moderately desiccated. Cervical spinal cord appears unremarkable. FINDINGS AT SPECIFIC LEVELS: C2-C3: 2.5 mm broad-based posterior central protrusion effaces the anterocentral aspect of thecal sac. Central canal and bilateral neural foramina remain patent. Mild bilateral facet arthrosis is evident. C3-C4: 1.5 mm broad-based posterior protrusion is evident, eccentric to the left, slightly effacing the left anterior aspect of thecal sac. Central canal remains patent. Bilateral neural foramina are patent. Mild bilateral facet arthrosis is evident. C4-C5: 2.5 mm broad-based posterior protrusion effaces the anterior aspect of thecal sac. Central canal remains patent. Moderate bilateral neural foraminal stenosis is evident. Moderate bilateral facet arthropathy is seen. C5-C6: 3 mm broad-based posterior protrusion moderately effaces the anterior aspect of thecal sac. Subarachnoid space is attenuated. Moderate bilateral neural foraminal stenosis is evident. [id number] bilateral facet arthropathy is seen. C6-C7: 3 mm broad-based posterior protrusion effaces the anterior aspect of thecal sac. Central canal remains patent. Bilateral bilateral neural foraminal stenosis is evident, worse on the right. Mild bilateral facet arthropathy is seen. C7-T1: Significant disc bulge or protrusion is not seen. Central canal is patent. Mild to moderate right and mild left facet arthrosis is evident. Bilateral neural foramina appear patent. IMPRESSION: 1. 3 mm broad-based posterior protrusions at the C5-C6 and C6-C7 levels. 2. 2.5 mm broad-based posterior protrusion at the C4-C5 level. 3. 2.5 mm broad-based posterior central protrusion at the C2-C3 level. 4. 1.5 mm broad-based posterior protrusion at the C3-C4 level, eccentric to the left. 5. Multiple level bilateral cervical neural foraminal stenosis and facet arthrosis, detailed above. 08/10/2016 - - Read by: Braulio Gordon MD Dictated Date/time: 08/10/16 15:05 Electronically Signed by: Braulio Gordon MD 08/10/16 15:12 FINAL REPORT [facility] Vital Signs Vital Sign Value Date Comments Source Weight 200 08/16/2017 [facility] Height 68 08/16/2017 [facility] Temperature Oral (F) 98.3 F 08/16/2017 [facility] Heart Rate 60 08/16/2017 [facility] Diastolic (mm Hg) 86 08/16/2017 [facility] Systolic (mm Hg) 132 08/16/2017 [facility] Systolic (mm Hg) 131 11/09/2016 [facility] Diastolic (mm Hg) 74 11/09/2016 [facility] Respitory Rate 18 11/09/2016 [facility] Heart Rate 81 11/09/2016 [facility] Temperature Oral (F) 98.1 F 11/09/2016 [facility] Systolic (mm Hg) 108 11/09/2016 [facility] Diastolic (mm Hg) 55 11/09/2016 [facility] Respitory Rate 18 11/09/2016 [facility] Temperature Oral (F) 98.1 F 11/09/2016 [facility] Heart Rate 65 11/09/2016 [facility] Systolic (mm Hg) 127 11/09/2016 [facility] Diastolic (mm Hg) 58 11/09/2016 [facility] Respitory Rate 16 11/09/2016 [facility] Heart Rate 60 11/09/2016 [facility] Temperature Oral (F) 97.9 F 11/09/2016 [facility] Weight 97.273 11/05/2016 [facility] BMI Calculated 34.61 11/05/2016 [facility] Height 167.64 cm 10/30/2016 [facility] Encounters Location Location Details Encounter Type Encounter Number Reason For Visit Attending Provider ADM Date DC Date Status Source Candelario Shepard MD PA Unknown [id number] 04/17/2014 04/17/2014 Candelario Shepard MD PA Unknown [id number] 04/17/2014 04/17/2014 Candelario Shepard MD PA Unknown [id number] 04/17/2014 04/17/2014 MD RAÚL Linares Unknown [id number] 04/17/2014 04/17/2014 MD RAÚL Linares Unknown [id number] 06/18/2014 06/18/2014 Candelario Shepard MD PA Unknown [id number] 06/18/2014 06/18/2014 Candelario Shepard MD PA Unknown [id number] 06/18/2014 06/18/2014 MD RAÚL Linares Unknown [id number] 07/29/2015 07/29/2015 MD RAÚL Linares Unknown [id number] 07/29/2015 07/29/2015 MD RAÚL Linares Unknown [id number] 08/25/2015 08/25/2015 MD RAÚL Linares Unknown [id number] 08/25/2015 08/25/2015 MD RAÚL Linares Unknown [id number] 07/12/2016 07/12/2016 Candelario Shepard [facility] Orthopedic [facility] Spine [facility] Outpatient [id number] [facility] 08/10/2016 08/11/2016 [facility] Spine [facility] Orth[facility] Spine [facility] Inpatient [id number] [facility] 11/05/2016 11/09/2016 Orth[facility] Spine [facility] [id number] Lamine Lackey 08/10/2017 08/11/2017 [facility] Procedures Procedure Code Date Perfomer Comments Source CABG x 3 - Coronary artery bypass grafts x 3 [id number] 02/19/2014 [facility] CABG x 3 - Coronary artery bypass grafts x 3 [id number] 02/19/2014 [facility] Arthroscopy of knee [id number] 11/21/2010 [facility] Arthroscopy of knee [id number] 11/21/2010 [facility] Spinal fusion<sup>1</sup> [id number] 11/21/2008 BACK SURGERY x6 [facility] Spinal fusion<sup>1</sup> [id number] 11/21/2008 BACK SURGERY x6 [facility] Cholecystectomy [id number] [facility] Tubal ligation [id number] [facility] Cholecystectomy [id number] [facility] Tubal ligation [id number] [facility]
--- OUTSIDE RECORDS SUMMARY | 2019-05-15 09:52 | XMS REPORT ---
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 Active Problem Low back pain M54.5 Active Problem [place] (dyspnea on exertion) R06.09 Active Problem Encounter for pre-operative cardiovascular clearance Z01.810 Active Problem 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, unspecified whether [place] or transplanted heart I25.709 Active Problem Atherosclerosis of [place] coronary artery of [place] heart without angina pectoris I25.10 Active Problem Left ventricular diastolic dysfunction with preserved systolic function I50.30 Active Problem Atherosclerosis of [place] arteries of extremity with intermittent claudication I70.219 Active Problem Atherosclerosis of coronary artery bypass graft without angina pectoris I25.810 Active Problem Hypercholesteremia E78.00 Active Medications Medication Code System Code Instructions Start Date End Date Status Dosage Lisinopril-Hydrochlorothiazide [facility][NOTE 3] [id number] 20-25 MG Orally Once a day Active 1 tablet Results No Known Results Summary Purpose [employer] Submission
--- OUTSIDE RECORDS SUMMARY | 2019-05-15 09:52 | XMS REPORT ---
Author Author Candelario Shepard Organization [employer] Address Unknown Phone Unavailable Care Team Providers Care Wringer And Setter Name Role Phone Candelario Shepard CP Unavailable Encounters Encounter Location Date Unknown Candelario Shepard MD PA April 17, 2014 Unknown Candelario Shepard MD PA June 18, 2014 Problems Problem Type Condition ICD-9 Code Onset Dates Condition Status Problem HTN, Benign 401.1 Active Problem Shortness of breath 786.05 Active Problem Atrial fibrillation 427.31 Active Problem CABG Status V45.81 Active Problem Atherosclerotic heart disease [place] coronary artery w/angina pectoris 414.01 Active Problem Coronary atherosclerosis of unspecified type of bypass graft 414.05 Active Problem Atherosclerosis of [place] arteries of the extremities with intermittent claudication 440.21 Active Problem Angina 413.9 Active Problem Arteriosclerosis of carotid artery 433.10 Active Problem Chest Pain 786.51 Active Problem Abnormal EKG 794.31 Active Problem Swelling of limb 729.81 Active Problem Hypercholesterolemia 272.0 Active Problem PTCA Status V45.82 Active Problem Sinus Bradycardia 427.89 Active Medications Medication Code System Code Instructions Start Date End Date Status Dosage Lisinopril-Hydrochlorothiazide [facility] [id number] 20-25 MG Orally Once a day Active 1/2 tablet Social History Social History Element Qualifiers Date Reported Smoking . Status Never Smoker June 13, 2014 Alcohol Use Yes. June 13, 2014 Alcohol Screening: Yes. June 13, 2014 Marital Status: . June 13, 2014 Do you drink alcohol? Yes. June 13, 2014 Summary Purpose [employer] Submission
--- OUTSIDE RECORDS SUMMARY | 2019-05-15 09:52 | XMS REPORT ---
Author Author Candelario Shepard Organization [employer] Address Unknown Phone Unavailable Care Team Providers Care Career Law Clerk Name Role Phone Candelario Shepard CP Unavailable [...] graft with stable angina pectoris, unspecified whether [place] or transplanted heart I25.709 Active Problem Atherosclerosis of [place] coronary artery of [place] heart without angina pectoris I25.10 Active Problem Left ventricular diastolic dysfunction with preserved systolic function I50.30 Active Problem Atherosclerosis of [place] arteries of extremity with intermittent claudication I70.219 Active Problem Atherosclerosis of coronary artery bypass graft without angina pectoris I25.810 Active Problem Hypercholesteremia E78.00 Active Medications Medication Code System Code Instructions Start Date End Date Status Dosage Lisinopril-Hydrochlorothiazide [facility] [id number] 20-25 MG Orally Once a day Active 1 tablet Results No Known Results Summary Purpose [employer] Submission
--- OUTSIDE RECORDS SUMMARY | 2019-05-15 09:52 | XMS REPORT ---
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 coronary artery of [place] heart with angina pectoris I25.119 Active Problem Atherosclerosis of coronary artery bypass graft without angina pectoris I25.810 Active Problem LAE (left atrial enlargement) I51.7 Active Problem Arteriosclerosis of both carotid arteries I65.23 Active Problem Acquired stenosis of aortic valve I35.0 Active Problem Personal history of other diseases of the circulatory system Z86.79 Active Problem Lumbago with sciatica, right side M54.41 Active Problem Atherosclerosis of [place] arteries of extremity with intermittent claudication I70.219 Active Problem [place] (dyspnea on exertion) R06.09 Active Problem Other chronic pain G89.29 Active Problem Hypercholesteremia E78.00 Active Problem Chronic a-fib I48.2 Active Problem Nonrheumatic aortic valve stenosis I35.0 Active Problem Lumbago with sciatica, left side M54.42 Active Problem Persistent atrial fibrillation I48.1 Active Problem Low back pain M54.5 Active Problem Left ventricular diastolic dysfunction with preserved systolic function I50.30 Active Problem Swelling of lower extremity M79.89 Active Problem Abnormal EKG R94.31 Active Problem Atherosclerosis of [place] coronary artery of 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 or transplanted heart I25.709 Active Problem Encounter for pre-operative cardiovascular clearance Z01.810 Active Medications No Known Medications Results No Known Results Summary Purpose [employer] Submission
--- OUTSIDE RECORDS SUMMARY | 2019-05-15 09:52 | XMS REPORT | Summary of Care ---
Author Author [facility] Organization [facility] Address Unknown Phone Unavailable Encounter TIFFANY Jennings(NORMA) [id number] Date(s): 11/05/16 - 11/09/16 [facility] [address] [address]- [phone] Discharge Disposition: Intermediate Facility Attending Physician: Renzo Mazariegos MD Admitting Physician: Renzo Mazariegos MD Referring Physician: Renzo Mazariegos MD Vital Signs 1 2 3 Most recent to oldest [Reference Range]: 167.64 cm (10/30/16 4:05 PM) Height 98.1 DegF (11/09/16 2:29 PM) 98.1 DegF (11/09/16 11:42 AM) 97.9 DegF (11/09/16 7:31 AM) Temperature Oral [96.4-99.1 DegF] 131/74 mmHg (11/09/16 2:29 PM) 108/55 mmHg (11/09/16 11:42 AM) 127/58 mmHg (11/09/16 10:04 AM) Blood Pressure [90-140/60-90 mmHg] 18 BRMIN (11/09/16 2:29 PM) 18 BRMIN (11/09/16 11:42 AM) 16 BRMIN (11/09/16 7:31 AM) Respiratory Rate [14-20 BRMIN] 81 bpm (11/09/16 2:29 PM) 65 bpm (11/09/16 11:42 AM) 60 bpm (11/09/16 7:31 AM) Peripheral Pulse Rate [60-100 bpm] 97.273 kg (11/05/16 7:27 AM) Weight 34.61 m2 (11/05/16 7:27 AM) Body Mass Index Problem List Condition Effective Dates Status Health Status Informant DDD (degenerative Active disc disease), thoracolumbar(Confir med) 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) Diverticulosis(Confi Resolved rmed) Stomach Active ulcer(Confirmed) GERD Active (gastroesophageal reflux disease)(Confirmed) HLD Active (hyperlipidemia)(Con firmed) HTN Active (hypertension)(Confi rmed) Depression Active (emotion)(Confirmed) Neuropathy(Confirmed Active ) Hiatal Active hernia(Confirmed) OA Active (osteoarthritis)(Con firmed) Spinal Active stenosis(Confirmed) Tingling in Active extremities(Confirme d)1 Urinary incontinence Active in female(Confirmed) 1BILATERAL ARMS Allergies, Adverse Reactions, Alerts Substance Reaction Severity Status Betadine BURNED SKIN Severe Active Demerol RESPIRATORY DIFFICULTY Active DIAPHORESIS iodine topical Active Medications acetaminophen 650 mg, 2 tab, Route: PO, Drug form: TAB, Q4H, Dosing Weight 96.364, kg, PRN Mariam n 1-3/Temp > 100.4 F, Start date: 11/05/16 6:37:00 CLIENT DEVELOPMENT DIRECTOR, Duration: 30 day, Stop date: 12/05/16 6:36:00 CLIENT DEVELOPMENT DIRECTOR Notes: Do not exceed 4 gm/day. (Same as: Tylenol) Start Date: 11/05/16 Stop Date: 11/09/16 Status: Discontinued acetaminophen-hydrocodone 325 mg-10 mg oral tablet 2 tab, Route: PO, Drug Form: TAB, Dosing Weight 97.273, kg, Q4H, PRN Pain Score 4-6, Start date: 11/05/16 11:42:00 CLIENT DEVELOPMENT DIRECTOR, Duration: 30 day, Stop date: 12/05/16 11 :41:00 CLIENT DEVELOPMENT DIRECTOR Notes: Do not exceed 4gm/day of acetaminophen. (Same as: Welch 325/10) Start Date: 11/05/16 Stop Date: 11/09/16 Status: Discontinued Al hydroxide/Mg hydroxide/simethicone 200 mg-200 mg-20 mg/5 mL oral suspension 30 ml, Route: PO, Drug Form: SUSP, Dosing Weight 97.273, kg, Q4H, PRN Indigestio n, Start date: 11/05/16 11:42:00 CLIENT DEVELOPMENT DIRECTOR, Duration: 30 day, Stop date: 12/05/16 11:4 1:00 CLIENT DEVELOPMENT DIRECTOR Notes: (aluminum hydroxide-magnesium hyd- simethicone 225-705-25ig/5ml 30 ml ud MARGARITO) Start Date: 11/05/16 Stop Date: 11/09/16 Status: Discontinued Aleve 220 mg, PO, PRN, 0 Refill(s) Start Date: 10/30/16 Stop Date: 11/09/16 Status: Discontinued ANES acetaminophen 1,000 mg, 2 tab, Route: PO, Drug form: TAB, ONCE, Dosing Weight 97.273, kg, PRN Pain Score 1-3, Start date: 11/05/16 9:36:00 CLIENT DEVELOPMENT DIRECTOR, Duration: 1 doses or times, St op date: Limited # of times Notes: Max acetaminophen 4000 mg/day (4 gm/day). (Same as: Tylenol Extra Streng th) Start Date: 11/05/16 Stop Date: 11/05/16 Status: Discontinued ANES fentaNYL 25 microgram, 0.5 mL, Route: IVP, Drug form: INJ, Q5Min, Dosing Weight 97.273, k g, PRN Headache 4-6, Priority: Routine, Start date: 11/05/16 9:36:00 CLIENT DEVELOPMENT DIRECTOR, Durati on: 4 doses or times, Stop date: Limited # of times Notes: (Same as: Sublimaze) Preservative free. Start Date: 11/05/16 Stop Date: 11/05/16 Status: Discontinued ANES flumazenil 0.2 mg, 2 mL, Route: IVP, Drug form: INJ, PRN, Dosing Weight 97.273, kg, PRN Elier zodiazepine Reversal, Initial dose, Start date: 11/05/16 9:36:00 CLIENT DEVELOPMENT DIRECTOR, Duration: 30 day, Stop date: 12/05/16 9:35:00 CLIENT DEVELOPMENT DIRECTOR Notes: (Same as: Romazicon) Start Date: 11/05/16 Stop Date: 11/05/16 Status: Discontinued ANES HYDROmorphone 0.5 mg, 0.25 mL, Route: IVP, Drug form: INJ, Q5Min, Dosing Weight 97.273, kg, ME N Pain Score 7-10, Start date: 11/05/16 9:36:00 CLIENT DEVELOPMENT DIRECTOR, Duration: 4 doses or times, Stop date: Limited # of times Notes: Same as Dilaudid Start Date: 11/05/16 Stop Date: 11/05/16 Status: Discontinued ANES labetalol 10 mg, 2 mL, Route: IVP, Drug form: INJ, Q5Min, Dosing Weight 97.273, kg, PRN El evated BP, Start date: 11/05/16 9:36:00 CLIENT DEVELOPMENT DIRECTOR, Duration: 5 doses or times, Stop da te: Limited # of times Start Date: 11/05/16 Stop Date: 11/05/16 Status: Discontinued ANES morphine Sulfate 4 mg, 0.4 mL, Route: IVP, Drug form: INJ, Q5Min, Dosing Weight 97.273, kg, PRN P ain Score 7-10, Start date: 11/05/16 9:36:00 CLIENT DEVELOPMENT DIRECTOR, Duration: 3 doses or times, St op date: Limited # of times Notes: (Same as:MORPhine Sulfate) Start Date: 11/05/16 Stop Date: 11/05/16 Status: Discontinued ANES morphine Sulfate 2 mg, 0.2 mL, Route: IVP, Drug form: INJ, Q5Min, Dosing Weight 97.273, kg, PRN P ain Score 4-6, Start date: 11/05/16 9:36:00 CLIENT DEVELOPMENT DIRECTOR, Duration: 5 doses or times, Sto p date: Limited # of times Notes: (Same as:MORPhine Sulfate) Start Date: 11/05/16 Stop Date: 11/05/16 Status: Discontinued ANES naloxone 0.4 mg, 1 mL, Route: IVP, Drug form: INJ, Q2MIN, Dosing Weight 97.273, kg, PRN N arcotic Reversal, Start date: 11/05/16 9:36:00 CLIENT DEVELOPMENT DIRECTOR, Duration: 8 doses or times, Stop date: Limited # of times Notes: Same as Narcan Start Date: 11/05/16 Stop Date: 11/05/16 Status: Discontinued ANES ondansetron 4 mg, 2 mL, Route: IVP, Drug form: INJ, ONCE, Dosing Weight 97.273, kg, PRN Naus ea & Vomiting, Start date: 11/05/16 9:36:00 CLIENT DEVELOPMENT DIRECTOR Notes: (Same as: Zofran) MEDICATION WASTE Product Size: 4 mgProduct Was carly: ___ mg Start Date: 11/05/16 Stop Date: 11/05/16 Status: Discontinued ANES oxyCODONE 5 mg, 1 tab, Route: PO, Drug form: TAB, Q4H, Dosing Weight 97.273, kg, PRN Pain Score 4-6, Start date: 11/05/16 9:36:00 CLIENT DEVELOPMENT DIRECTOR, Duration: 30 day, Stop date: 9:35:00 CLIENT DEVELOPMENT DIRECTOR Notes: (Same as: Roxicodone) Start Date: 11/05/16 Stop Date: 11/05/16 Status: Discontinued ANES oxyCODONE 10 mg, 2 tab, Route: PO, Drug form: TAB, Q4H, Dosing Weight 97.273, kg, PRN Pain Score 7-10, Start date: 11/05/16 9:36:00 CLIENT DEVELOPMENT DIRECTOR, Duration: 30 day, Stop date: 11/21 04/06 9:35:00 CLIENT DEVELOPMENT DIRECTOR Notes: (Same as: Roxicodone) Start Date: 11/05/16 Stop Date: 11/05/16 Status: Discontinued calcium gluconate + sodium chloride 0.9% INJ 100 mL 1,000 mg, 10 mL, Route: IVPB, Drug form: INJ, ONCE, Dosing Weight 97.273, kg, St art date: 11/07/16 7:53:00 CLIENT DEVELOPMENT DIRECTOR, Stop date: 11/07/16 7:53:00 CLIENT DEVELOPMENT DIRECTOR Notes: WASTE: F/P - Sink; E - Municipal Trash Bin Start Date: 11/07/16 Stop Date: 11/07/16 Status: Completed calcium gluconate + sodium chloride 0.9% INJ 100 mL 1,000 mg, 10 mL, Route: IVPB, Drug form: INJ, ONCE, Dosing Weight 97.273, kg, St art date: 11/06/16 11:19:00 CLIENT DEVELOPMENT DIRECTOR, Stop date: 11/06/16 11:19:00 CLIENT DEVELOPMENT DIRECTOR Notes: WASTE: F/P - Sink; E - Municipal Trash Bin Start Date: 11/06/16 Stop Date: 11/06/16 Status: Completed ceFAZolin (SCIP) 2 gm, 100 mL, Route: IVPB, Drug form: INJ, ABXQ8H, Dosing Weight 97.273, kg, Sta rt date: 11/05/16 17:30:00 CLIENT DEVELOPMENT DIRECTOR, Duration: 3 doses or times, Stop date: 11/06/16 9:30:00 CLIENT DEVELOPMENT DIRECTOR Notes: Same as: Ancef Start Date: 11/05/16 Stop Date: 11/06/16 Status: Completed D5W 1/2NS + KCL 20mEq/L 1000ml (Premix) 1,000 mL 1,000 mL, Rate: 75 ml/hr, Infuse over: 13.3 hr, Route: IV, Dosing Weight 97.273 kg, Total Volume: 1,000, Start date: 11/05/16 11:42:00 CLIENT DEVELOPMENT DIRECTOR, Duration: 30 day, [address] op date: 12/05/16 11:41:00 CLIENT DEVELOPMENT DIRECTOR Notes: PREMIX IV - Do Not AlterWASTE: F/P - Sink; E - Municipal Trash Bin Start Date: 11/05/16 Stop Date: 11/06/16 Status: Discontinued diclofenac potassium 50 mg oral tablet 50 mg=1 tab, PO, Daily, 0 Refill(s) Start Date: 10/30/16 Stop Date: 11/09/16 Status: Discontinued diphenhydrAMINE 12.5 mg, 5 mL, Route: PO, Drug form: LIQ, Q6H, Dosing Weight 97.273, kg, PRN Itc sheela, Start date: 11/05/16 11:42:00 CLIENT DEVELOPMENT DIRECTOR, Duration: 30 day, Stop date: 12/05/16 1:41:00 CLIENT DEVELOPMENT DIRECTOR Notes: (Same as: Benadryl) Start Date: 11/05/16 Stop Date: 11/09/16 Status: Discontinued diphenhydrAMINE 25 mg, 1 cap, Route: PO, Drug form: CAP, Bedtime, Dosing Weight 97.273, kg, PRN Insomnia, Start date: 11/05/16 11:42:00 CLIENT DEVELOPMENT DIRECTOR, Duration: 30 day, Stop date: 11:41:00 CLIENT DEVELOPMENT DIRECTOR Notes: (Same as: Benadryl) Start Date: 11/05/16 Stop Date: 11/09/16 Status: Discontinued docusate 100 mg, 1 cap, Route: PO, Drug form: CAP, BID, Dosing Weight 96.364, kg, Start d ate: 11/05/16 17:00:00 CLIENT DEVELOPMENT DIRECTOR, Duration: 30 day, Stop date: 12/05/16 9:00:00 CLIENT DEVELOPMENT DIRECTOR Notes: (Same as: Colace) (Do Not Crush) Start Date: 11/05/16 Stop Date: 11/09/16 Status: Discontinued docusate sodium 100 mg oral capsule 100 mg=1 cap, PO, BID, # 30 cap, 0 Refill(s) Start Date: 11/08/16 Status: Ordered docusate sodium 100 mg oral capsule 100 mg, Route: PO, Drug form: CAP, BID, Dosing Weight 97.273, kg, Start date: 17:00:00 CLIENT DEVELOPMENT DIRECTOR, Duration: 30 day, Stop date: 12/05/16 9:00:00 CLIENT DEVELOPMENT DIRECTOR Start Date: 11/05/16 Stop Date: 11/05/16 Status: Deleted Dulcolax Laxative 10 mg, 1 supp, Route: ME, Drug form: SUPP, ONCE, Dosing Weight 97.273, kg, Prior ity: NOW, Start date: 11/07/16 14:28:00 CLIENT DEVELOPMENT DIRECTOR, Stop date: 11/07/16 14:28:00 CLIENT DEVELOPMENT DIRECTOR Notes: (Same As: Dulcolax, Bisco-Lax) Start Date: 11/07/16 Stop Date: 11/07/16 Status: Completed Dulcolax Laxative 5 mg, 1 tab, Route: PO, Drug form: ECTAB, Q24H, Dosing Weight 97.273, kg, PRN Co nstipation, Start date: 11/05/16 11:42:00 CLIENT DEVELOPMENT DIRECTOR, Duration: 30 day, Stop date: 11/21 04/06 11:41:00 CLIENT DEVELOPMENT DIRECTOR Notes: (Same As: Dulcolax, Correctol) (Do Not Crush) "Do Not Crush" Start Date: 11/05/16 Stop Date: 11/09/16 Status: Discontinued DULoxetine 20 mg oral delayed release capsule 20 mg=1 cap, PO, Daily, # 30 cap, 0 Refill(s) Start Date: 10/30/16 Stop Date: 11/09/16 Status: Discontinued hydrALAZINE 50 mg oral tablet 50 mg=1 tab, PO, Daily, 0 Refill(s) Start Date: 10/30/16 Status: Ordered hydrALAZINE 50 mg oral tablet 50 mg, 2 tab, Route: PO, Drug form: TAB, Daily, Dosing Weight 97.273, kg, Start date: 11/06/16 9:00:00 CLIENT DEVELOPMENT DIRECTOR, Duration: 30 day, Stop date: 12/05/16 9:00:00 CLIENT DEVELOPMENT DIRECTOR Notes: (Same as: Apresoline) May interfere w/enteral feedings Take With Food. Start Date: 11/06/16 Stop Date: 11/09/16 Status: Discontinued hydrochlorothiazide 25 mg oral tablet 12.5 mg, 0.5 tab, Route: PO, Drug form: TAB, QPM, Start date: 11/05/16 17:00:00 CLIENT DEVELOPMENT DIRECTOR, Duration: 30 day, Stop date: 12/04/16 17:00:00 CLIENT DEVELOPMENT DIRECTOR Notes: (Same as: Hydrodiuril) With food. Start Date: 11/05/16 Stop Date: 11/07/16 Status: Discontinued hydrochlorothiazide-lisinopril 25 mg-20 mg oral tablet 0.5 tab, Route: PO, Drug Form: TAB, Dosing Weight 97.273, kg, QPM, Start date: 1 01/06/16 17:00:00 CLIENT DEVELOPMENT DIRECTOR, Duration: 30 day, Stop date: 12/04/16 17:00:00 CLIENT DEVELOPMENT DIRECTOR Start Date: 11/05/16 Stop Date: 11/05/16 Status: Deleted hydrochlorothiazide-lisinopril 25 mg-20 mg oral tablet 0.5 tab, PO, QPM, # 90 tab, 0 Refill(s) Start Date: 10/30/16 Stop Date: 11/09/16 Status: Discontinued HYDROmorphone PRIZER HAND 0.5mg/ml 30ml INJ 15 mg 15 mg, 30 mL, Route: IV, Initial Loading Dose: 0.4mg, PRIZER HAND Dose: 0.2 mg, PRIZER HAND Lock out: 10 minutes, Continuous Basal Rate: 0 mg, 4 Hour Limit (In MG): 6, Drug Form : INJ, Continuous, Start date: 11/05/16 12:00:00 CLIENT DEVELOPMENT DIRECTOR, Duration: 30 day, Stop avery e: 12/05/16... Notes: (Same as: Dilaudid) conc=0.5 mg/mlHydromorphone PRIZER HAND Dose: ;Delay: ;Basal: Start Date: 11/05/16 Stop Date: 11/09/16 Status: Discontinued Lactated Ringers 1,000 mL 1,000 mL, Rate: 40 ml/hr, Infuse over: 25 hr, Route: IV, Dosing Weight 97.273 kg , Total Volume: 1,000, Start date: 11/05/16 7:28:00 CLIENT DEVELOPMENT DIRECTOR, Duration: 30 day, Stop date: 12/05/16 7:27:00 CLIENT DEVELOPMENT DIRECTOR Start Date: 11/05/16 Stop Date: 11/09/16 Status: Discontinued Lactated Ringers 1,000 mL 1,000 mL, Rate: 999 ml/hr, Infuse over: 1 hr, Route: IV, Dosing Weight 97.273 kg , Total Volume: 1,000, Start date: 11/05/16 15:53:00 CLIENT DEVELOPMENT DIRECTOR, Duration: 1 doses or t imes, Stop date: 11/05/16 16:52:00 CLIENT DEVELOPMENT DIRECTOR Start Date: 11/05/16 Stop Date: 11/05/16 Status: Completed magnesium citrate 1.745 g/30 mL oral liquid 300 ml, Route: PO, Drug Form: LIQ, Dosing Weight 97.273, kg, ONCE, NOW, Start da te: 11/07/16 14:28:00 CLIENT DEVELOPMENT DIRECTOR, Stop date: 11/07/16 14:28:00 CLIENT DEVELOPMENT DIRECTOR Notes: (Same as: Citrate of Magnesia)Concentration: 1.745 gm / 30 mL Start Date: 11/07/16 Stop Date: 11/07/16 Status: Completed metoprolol tartrate 12.5 mg, 0.5 tab, Route: PO, Drug form: TAB, BID, Dosing Weight 97.273, kg, Star t date: 11/05/16 17:00:00 CLIENT DEVELOPMENT DIRECTOR, Duration: 30 day, Stop date: 12/05/16 9:00:00 CLIENT DEVELOPMENT DIRECTOR Notes: (Same as: Lopressor) Start Date: 11/05/16 Stop Date: 11/09/16 Status: Discontinued metoprolol tartrate 25 mg oral tablet 12.5 mg=0.5 tab, PO, BID, TAKE AM DOS, # 180 tab, 0 Refill(s) Start Date: 10/30/16 Status: Ordered Milk of Magnesia 30 ml, Route: PO, Drug Form: SUSP, Dosing Weight 97.273, kg, Daily, PRN as neede d for constipation, Until bowel movement, Start date: 11/05/16 11:42:00 CLIENT DEVELOPMENT DIRECTOR, Dur ation: 30 day, Stop date: 12/05/16 11:41:00 CLIENT DEVELOPMENT DIRECTOR Notes: (Same as: Milk of Magnesia, MOM) Start Date: 11/05/16 Stop Date: 11/09/16 Status: Discontinued naloxone 0.04 mg, 0.1 mL, Route: IVP, Drug form: INJ, Q2MIN, Dosing Weight 97.273, kg, ME N Narcotic Reversal, Start date: 11/05/16 11:42:00 CLIENT DEVELOPMENT DIRECTOR, Duration: 30 day, Stop d ate: 12/05/16 11:41:00 CLIENT DEVELOPMENT DIRECTOR Notes: Same as Narcan Start Date: 11/05/16 Stop Date: 11/09/16 Status: Discontinued NS (Bolus) IV 1,000 mL, 1,000 ml/hr, Infuse Over: 1 hr, Route: IV, 1,000, Drug form: INJ, ONCE , Priority: STAT, Dosing Weight 97.273 kg, Start date: 11/06/16 11:32:00 CLIENT DEVELOPMENT DIRECTOR, Du ration: 1 doses or times, Stop date: 11/06/16 11:32:00 CLIENT DEVELOPMENT DIRECTOR Start Date: 11/06/16 Stop Date: 11/06/16 Status: Completed ondansetron 4 mg, 2 mL, Route: IVP, Drug form: INJ, Q6H, Dosing Weight 96.364, kg, PRN Nause a & Vomiting, Start date: 11/05/16 6:37:00 CLIENT DEVELOPMENT DIRECTOR, Duration: 30 day, Stop date: 12/05/16 6:36:00 CLIENT DEVELOPMENT DIRECTOR Notes: (Same as: Elizabeth) MEDICATION WASTE Product Size: 4 mgProduct Was carly: ___ mg Start Date: 11/05/16 Stop Date: 11/05/16 Status: Deleted ondansetron 4 mg, 2 mL, Route: IVP, Drug form: INJ, Q6H, Dosing Weight 97.273, kg, PRN Nause a & Vomiting, Start date: 11/05/16 11:42:00 CLIENT DEVELOPMENT DIRECTOR, Duration: 30 day, Stop date: 12/05/16 11:41:00 CLIENT DEVELOPMENT DIRECTOR Notes: (Same as: Sagean) MEDICATION WASTE Product Size: 4 mgProduct Was carly: ___ mg Start Date: 11/05/16 Stop Date: 11/09/16 Status: Discontinued Plavix 75 mg oral tablet 75 mg=1 tab, PO, Daily, # 90 tab, 0 Refill(s) Start Date: 10/30/16 Status: Ordered potassium chloride 40 mEq, Route: PO, Drug form: ERTAB, ONCE, Dosing Weight 97.273, kg, Start date: 11/08/16 10:09:00 CLIENT DEVELOPMENT DIRECTOR, Stop date: 11/08/16 10:09:00 CLIENT DEVELOPMENT DIRECTOR Start Date: 11/08/16 Stop Date: 11/08/16 Status: Discontinued potassium chloride 20 mEq oral tablet, extended release 20 mEq, 1 tab, Route: PO, Drug form: ERTAB, ONCE, Dosing Weight 97.273, kg, Star t date: 11/07/16 7:52:00 CLIENT DEVELOPMENT DIRECTOR, Stop date: 11/07/16 7:52:00 CLIENT DEVELOPMENT DIRECTOR Notes: (Same as: K-Dur 20)"Do Not Crush" With food and full glass of water Start Date: 11/07/16 Stop Date: 11/07/16 Status: Completed potassium phosphate + sodium chloride 0.9% INJ 250 mL 15 mmol, 5 mL, Route: IVPB, Drug form: INJ, ONCE, Dosing Weight 97.273, kg, Star t date: 11/08/16 10:10:00 CLIENT DEVELOPMENT DIRECTOR, Stop date: 11/08/16 10:10:00 CLIENT DEVELOPMENT DIRECTOR Notes: (Same as: K Phosphate.) 1 mMol phoshate has 1.47 mEq potassium Infuse o marques 4 hours Start Date: 11/08/16 Stop Date: 11/08/16 Status: Completed Prinivil 10 mg, 1 tab, Route: PO, Drug form: TAB, QPM, Start date: 11/05/16 17:00:00 CLIENT DEVELOPMENT DIRECTOR, Duration: 30 day, Stop date: 12/04/16 17:00:00 CLIENT DEVELOPMENT DIRECTOR Notes: (Same as: Prinivil, Zestril) Start Date: 11/05/16 Stop Date: 11/09/16 Status: Discontinued Protonix 40 mg, 1 tab, Route: PO, Drug form: ECTAB, Daily, Dosing Weight 97.273, kg, Star t date: 11/06/16 9:00:00 CLIENT DEVELOPMENT DIRECTOR, Duration: 30 day, Stop date: 12/05/16 9:00:00 CLIENT DEVELOPMENT DIRECTOR Notes: Tablet should not be chewed or crushed.(Same as: Protonix) Start Date: 11/06/16 Stop Date: 11/09/16 Status: Discontinued Protonix 40 mg oral enteric coated tablet 40 mg=1 tab, PO, PRN, 0 Refill(s) Start Date: 10/30/16 Status: Ordered Reglan 10 mg, 2 mL, Route: IV, Drug form: INJ, ONCE, Dosing Weight 97.273, kg, Start da te: 11/08/16 0:44:00 CLIENT DEVELOPMENT DIRECTOR, Stop date: 11/08/16 0:44:00 CLIENT DEVELOPMENT DIRECTOR Notes: (Same as: Reglan) Start Date: 11/08/16 Stop Date: 11/08/16 Status: Completed Saline Flush 0.9% 10 ml, Route: IVP, Drug Form: INJ, Dosing Weight 97.273, kg, PRN, PRN Line Flush , Start date: 11/05/16 11:42:00 CLIENT DEVELOPMENT DIRECTOR, Duration: 30 day, Stop date: 12/05/16 11:41 :00 CLIENT DEVELOPMENT DIRECTOR Notes: Same as: BD Posiflush Sterile Start Date: 11/05/16 Stop Date: 11/09/16 Status: Discontinued Tylenol 1,000 mg, PO, PRN, 0 Refill(s) Start Date: 10/30/16 Status: Ordered Zanaflex 4 mg, 1 tab, Route: PO, Drug form: TAB, Q8H, Dosing Weight 97.273, kg, Start avery e: 11/05/16 16:00:00 CLIENT DEVELOPMENT DIRECTOR, Duration: 30 day, Stop date: 12/05/16 8:00:00 CLIENT DEVELOPMENT DIRECTOR Notes: (Same As: Zanaflex) Start Date: 11/05/16 Stop Date: 11/09/16 Status: Discontinued Zanaflex 4 mg oral capsule 4 mg=1 cap, PO, TID, # 40 cap, 0 Refill(s) Start Date: 11/08/16 Status: Ordered Results BLOOD BANK RESULTS 1 2 3 Most recent to oldest [Reference Range]: O POS *Unknown* (11/01/16 11:15 AM) ABO/Rh Negative (11/01/16 11:15 AM) Antibody Scrn Product available (11/05/16 5:00 AM) RBC product ELECTROLYTES 1 2 3 Most recent to oldest [Reference Range]: 138 mEq/L (11/08/16 5:48 AM) 136 mEq/L (11/07/16 6:19 AM) 139 mEq/L (11/06/16 4:58 AM) Sodium Lvl [135-145 mEq/L] 3.4 mEq/L *LOW* (11/08/16 5:48 AM) 3.5 mEq/L (11/07/16 6:19 AM) 3.6 mEq/L (11/06/16 4:58 AM) Potassium Lvl [3.5-5.1 mEq/L] 103 mEq/L (11/08/16 5:48 AM) 102 mEq/L (11/07/16 6:19 AM) 102 mEq/L (11/06/16 4:58 AM) Chloride Lvl [95-109 mEq/L] 31 mEq/L (11/08/16 5:48 AM) 28 mEq/L (11/07/16 6:19 AM) 28 mEq/L (11/06/16 4:58 AM) CO2 [24-32 mEq/L] 7.4 mEq/L *LOW* (11/08/16 5:48 AM) 9.5 mEq/L *LOW* (11/07/16:19 AM) 12.6 mEq/L (11/06/16 4:58 AM) AGAP [10.0-20.0 mEq/L] 141 mEq/L (11/05/16 9:17 AM) POC Sodium [135-145 mEq/L] 3.2 mEq/L *LOW* (11/05/16 9:17 AM) POC Potassium [3.5-5.1 mEq/L] 104 mEq/L (11/05/16 9:17 AM) POC Chloride [95-109 mEq/L] 24 mEq/dL (11/05/16 9:17 AM) POC Carbon Dioxide [24-32 mEq/dL] 18.0 mEq/L (11/05/16 9:17 AM) POC AGAP [10.0-20.0 mEq/L] CHEM PANEL 1 2 3 Most recent to oldest [Reference Range]: 0.89 mg/dL (11/08/16 5:48 AM) 0.99 mg/dL (11/07/16 6:19 AM) 1.23 mg/dL (11/06/16 4:58 AM) Creatinine Lvl [0.50-1.40 mg/dL] 63 mL/min/1.73m2 1 *NA* (11/08/16 5:48 AM) 56 mL/min/1.73m2 2 *NA* (11/07/16 6:19 AM) 43 mL/min/1.73m2 3 *NA* (11/06/16 4:58 AM) eGFR 14 mg/dL (11/08/16 5:48 AM) 11 mg/dL (11/07/16 6:19 AM) 12 mg/dL (11/06/16 4:58 AM) BUN [7-22 mg/dL] 13 (11/01/16 11:15 AM) B/C Ratio [6-25] 127 mg/dL *HI* (11/08/16 5:48 AM) 114 mg/dL *HI* (11/07/16 6:19 AM) 132 mg/dL *HI* (11/06/16 4:58 AM) Glucose Lvl [70-99 mg/dL] 1.0 mg/dL (11/05/16 9:17 AM) POC Creatinine [0.5-1.4 mg/dL] 8 mg/dL (11/05/16 9:17 AM) POC BUN [7-22 mg/dL] 104 mg/dL *HI* (11/05/16 9:17 AM) POC Glucose [70-99 mg/dL] 6.8 g/dL (11/01/16 11:15 AM) Total Protein [6.4-8.4 g/dL] 3.5 g/dL (11/01/16 11:15 AM) Albumin Lvl [3.5-5.0 g/dL] 3.3 g/dL (11/01/16 11:15 AM) Globulin [2.7-4.2 g/dL] 1.1 (11/01/16 11:15 AM) A/G Ratio [0.7-1.6] 8.1 mg/dL *LOW* (11/08/16 5:48 AM) 7.5 mg/dL *LOW* (11/07/16 6:19 AM) 7.5 mg/dL *LOW* (11/06/16 4:58 AM) Calcium Lvl [8.5-10.5 mg/dL] 1.23 mMol/L (11/05/16 9:17 AM) POC Ion Ca [1.05-1.25 mMol/L] 2.1 mg/dL *LOW* (11/08/16 5:48 AM) Phosphorus [2.5-4.5 mg/dL] 1.9 mg/dL (11/08/16 5:48 AM) Magnesium Lvl [1.8-2.4 mg/dL] 20 unit/L (11/01/16 11:15 AM) ALT [0-65 unit/L] 14 unit/L (11/01/16 11:15 AM) AST [0-37 unit/L] 90 unit/L (11/01/16 11:15 AM) Alk Phos [39-136 unit/L] 1.2 mg/dL (11/01/16 11:15 AM) Bili Total [0.2-1.3 mg/dL] 1Result Comment: The eGFR is calculated using the [...] from the [employer] ( [employer]) which additionally recommends that when the eGFR is used in patients with extremes of body mass index for purposes of drug dosing, the eGFR should be mul tiplied by the estimated BMI. 2Result Comment: The eGFR is calculated using the [...] from the [employer] ( [employer]) which additionally recommends that when the eGFR is used in patients with extremes of body mass index for purposes of drug dosing, the eGFR should be mul tiplied by the estimated BMI. 3Result Comment: The eGFR is calculated using the [...] from the [employer] Program ( [employer]) which additionally recommends that when the eGFR is used in patients with extremes of body mass index for purposes of drug dosing, the eGFR should be mul tiplied by the estimated BMI. HEMATOLOGY 1 2 3 Most recent to oldest [Reference Range]: 9.0 K/CMM (11/08/16 5:48 AM) 8.0 K/CMM (11/07/16 6:19 AM) 11.3 K/CMM *HI* (11/06/16 4:58 AM) WBC [3.7-10.4 K/CMM] 3.06 M/CMM *LOW* (11/08/16 5:48 AM) 2.97 M/CMM *LOW* (11/07/16 6:19 AM) 3.66 M/CMM *LOW* (11/06/16 4:58 AM) RBC [4.20-5.40 M/CMM] 9.5 g/dL *LOW* (11/08/16 5:48 AM) 9.1 g/dL *LOW* (11/07/16 6:19 AM) 11.1 g/dL *LOW* (11/06/16 4:58 AM) Hgb [12.0-16.0 g/dL] 26.9 % *LOW* (11/08/16 5:48 AM) 26.3 % *LOW* (11/07/16 6:19 AM) 32.6 % *LOW* (11/06/16 4:58 AM) Hct [36.0-48.0 %] 88.1 fL (11/08/16 5:48 AM) 88.4 fL (11/07/16 6:19 AM) 89.0 fL (11/06/16 4:58 AM) MCV [80.0-98.0 fL] 31.0 pg (11/08/16 5:48 AM) 30.8 pg (11/07/16 6:19 AM) 30.3 pg (11/06/16 4:58 AM) MCH [27.0-31.0 pg] 35.1 g/dL (11/08/16 5:48 AM) 34.8 g/dL (11/07/16 6:19 AM) 34.0 g/dL (11/06/16 4:58 AM) MCHC [32.0-36.0 g/dL] 13.4 % (11/08/16 5:48 AM) 13.4 % (11/07/16 6:19 AM) 13.8 % (11/06/16 4:58 AM) RDW [11.5-14.5 %] 125 K/CMM *LOW* (11/08/16 5:48 AM) 109 K/CMM *LOW* (11/07/16 6:19 AM) 184 K/CMM (11/06/16 4:58 AM) Platelet [133-450 K/CMM] 8.5 fL (11/08/16 5:48 AM) 8.3 fL (11/07/16 6:19 AM) 8.4 fL (11/06/16 4:58 AM) MPV [7.4-10.4 fL] 11.6 g/dL *LOW* (11/05/16 9:17 AM) POC Hemoglobin [12.0-16.0 g/dL] 34.0 % *LOW* (11/05/16 9:17 AM) POC Hematocrit [36.0-48.0 %] 79.6 % *HI* (11/06/16 4:58 AM) 54.3 % (11/01/16 11:15 AM) Segs [45.0-75.0 %] 11.6 % *LOW* (11/06/16 4:58 AM) 33.4 % (11/01/16 11:15 AM) Lymphocytes [20.0-40.0 %] 8.1 % (11/06/16 4:58 AM) 9.5 % (11/01/16 11:15 AM) Monocytes [2.0-12.0 %] 0.1 % (11/06/16 4:58 AM) 1.4 % (11/01/16 11:15 AM) Eosinophils [0.0-4.0 %] 0.6 % (11/06/16 4:58 AM) 1.4 % *HI* (11/01/16 11:15 AM) Basophils [0.0-1.0 %] 9.0 K/CMM *HI* (11/06/16 4:58 AM) 3.2 K/CMM (11/01/16 11:15 AM) Segs-Bands # [1.5-8.1 K/CMM] 1.3 K/CMM (11/06/16 4:58 AM) 2.0 K/CMM (11/01/16 11:15 AM) Lymphocytes # [1.0-5.5 K/CMM] 0.9 K/CMM *HI* (11/06/16 4:58 AM) 0.6 K/CMM (11/01/16 11:15 AM) Monocytes # [0.0-0.8 K/CMM] 0.1 K/CMM (11/01/16 11:15 AM) Eosinophils # [0.0-0.5 K/CMM] 0.1 K/CMM (11/06/16 4:58 AM) 0.1 K/CMM (11/01/16 11:15 AM) Basophils # [0.0-0.2 K/CMM] 13.4 seconds (11/01/16 11:15 AM) PT [12.0-14.7 seconds] 1.00 (11/01/16 11:15 AM) INR [0.85-1.17] 27.2 seconds (11/01/16 11:15 AM) PTT [22.9-35.8 seconds] Immunizations Given and Recorded Vaccine Date Status Refusal Reason Hx influenza vaccine-unspecified 07/29/16 Given Procedures Procedure Date Related Diagnosis Body Site CABG x 3 - Coronary artery bypass grafts x 3 02/2014 Arthroscopy of knee 2010 Spinal fusion1 2008 Cholecystectomy Tubal ligation 1BACK SURGERY x6 Social History Social History Type Response Substance Abuse Use: None. Exercise Exercise duration: 0. Alcohol Never Smoking Status Former smoker; Type: Cigarettes; Tobacco use per day: 20; Number of years: 15; Stopped at age: 32; Exposure to Tobacco Smoke None; Cigarette Smoking Last 365 Days No; Reg Smoking Cessation Counseling No Assessment and Plan Extracted from: Title: Progress Note Author: Candelario Hernandez MD Date: 11/08/16 Assessment/Plan 75-year-old female with past medical history of degenerative disease hypertension coronary disease and other issues who presents for continued back pain 1.DDD (degenerative disc disease), thoracolumbar Thoracic 10 lumbar 3 posterior spinal fusion with instrumentation and decompression POD #3 pt off PRIZER HAND, Pain management per primary I am happy to assist 2.Mild CAD No active chest discomfort at this time, stable vitals we will hold antiplatelets postop cont B-blockers 3.HTN (hypertension) well controlled, Continue home metoprolol and lisinopril. hydrochlorothiazide discontinued given borderline SBP 4.GERD (gastroesophageal reflux disease) Continue Protonix 5.Neuropathy Pain medicines as per morecontinued to Loxitane [1] 6. leukocytosis likley reactive,resolved will f/u in am, consider cultures if spiking fever [1] 7. anemia: likley multifactorial due to operative blood loss and dilutional effect of IV fluids will f/u orthostatic signs and CBC, no indication for transfusion at this point [2] Prophylaxis as per primary [3] Disposition as per primary [4] Extracted from: Title: Consult Note Author: Miguel Dias MD Date: 11/05/16 Assessment/Plan 75-year-old female with past medical history of degenerative disease hypertension coronary disease and other issues who presents for continued back pain 1.DDD (degenerative disc disease), thoracolumbar Thoracic 10 lumbar 3 posterior spinal fusion with instrumentation and decompression Pain management per primary I am happy to assist 2.Mild CAD No active chest discomfort at this timewe will hold antiplatelets postop 3.HTN (hypertension) Continue home metoprolol and hydrochlorothiazide lisinopril. 4.GERD (gastroesophageal reflux disease) Continue Protonix 5.Neuropathy Pain medicines as per morecontinued to Loxitane All other chronic medical issues stablecontinue home medicines as appropriate Please call [phone] with any questions or issues Extracted from: Title: pre-op H&P Author: Renzo Mazariegos MD Date: 11/04/16 Chief Complaint: Back pain. Current Symptoms: Patient has difficulty standing, discomfort with motion, limited range of motion, pain, pain radiating into extremities, pain radiating to hip and leg, radicular symptoms Current Treatment: prior spine surgery Current Treatment Comments: Meds include Neurontin. History of Present Illness: The patient is a 74-year-old female who complains of back pain. She has not been seen since 2008. She had posterior fusion. She has done well until recently. She started having a lot of pain. She describes her pain as an achy pain in the left low back to her flank. Her pain can become sharp and stabbing at times. It is positional. She states occasionally she has some pain shooting down her leg. Past Medical History: HTN, reflux, ulcers, depression. Past Surgical History: Multiple back surgeries. Family History: Cancer, heart disease. Social History: Retired. Medications NEURONTIN TABS (GABAPENTIN TABS) PROTONIX PACK (PANTOPRAZOLE SODIUM PACK) AMLODIPINE-ATORVASTATIN TABS (AMLODIPINE-ATORVASTATIN TABS) METOPROLOL-HYDROCHLOROTHIAZIDE TABS (METOPROLOL-HYDROCHLOROTHIAZIDE TABS) LISINOPRIL-HYDROCHLOROTHIAZIDE TABS (LISINOPRIL-HYDROCHLOROTHIAZIDE TABS) PLAVIX TABS (CLOPIDOGREL BISULFATE TABS) Allergies: DEMEROL (Critical) Risk Factors: Smoked Tobacco Use: Never smoker Drug use: no Alcohol use: no Review of Systems General: Denies fevers,chills,sweats,anorexia,fatigue,malaise,weight loss. Eyes: Denies blurring,diplopia,irritation,discharge,vision loss,eye pain,photophobia. Ears/Nose/Throat: Denies earache, ear discharge, tinnitus, decreased hearing, nasal congestion, nosebleeds, sore throat, hoarseness, dysphagia. Cardiovascular: Denies chest pains, palpitations, syncope, dyspnea on exertion, orthopnea, PND, peripheral edema. Respiratory: Complains of cough. Denies dyspnea, excessive sputum, hemoptysis, wheezing. Gastrointestinal: Denies nausea, vomiting, diarrhea, constipation, change in bowel habits, abdominal pain, melena, hematochezia, jaundice. Complains of heartburn. Genitourinary: Denies vaginal discharge, incontinence, dysuria, hematuria, urinary frequency, amenorrhea, menorrhagia, abnormal vaginal bleeding, pelvic pain. Musculoskeletal: Complains of back pain. Skin: Denies rash, itching, dryness, suspicious lesions. Neurologic: Denies transient paralysis, weakness, paresthesias, seizures, syncope, tremors, vertigo. Psychiatric: Complains of depression. Endocrine: Denies cold intolerance, heat intolerance, polydipsia, polyphagia, polyuria, weight change. Heme/Lymphatic: Denies abnormal bruising, bleeding,enlarged lymph nodes. Allergic/Immunologic: Denies urticaria, hay fever, persistent infections, HIV exposure. General Physical Exam General: Patient is well developed, well nourished, and in no acute distress. Patient is alert and oriented and without agitation. HEENT: Exam reveals lips, teeth, and gums are within normal limits. Oral pharynx reveals normal oral mucosa. Neck: Supple, symmetric, and without obvious masses. Skin: Without nodularity, rashes, lesions or ulcerations. Respiratory: Breathing is unlabored. Cardiovascular: Regular rate and rhythm. Abdomen: Soft, nontender,without obvious masses. Detailed Back/Spine Exam General: Patient is well developed, well nourished, and in no acute distress. Patient is alert and oriented and without agitation. Lumbosacral Exam: Range of Motion Forward Flexion: 50 degrees Hyperextension: 15 degrees Right Lateral Bend: 15 degrees Left Lateral Bend: 15 degrees Comments: Pain with motion, especially extension. Femoral stretch test is positive on the left. Detailed Neurologic Exam Motor Exam: Gait: Gait is normal. Posture: Posture is normal. Spasm: There is no paraspinal muscle spasm. Strength: Right Psoas: 5/5 Left Psoas: 5/5 Right Quads: 5/5 Left Quads: 5/5 Right Hamstrin/5 Left Hamstrin/5 Right Anterior Tibialis: 5/5 Left Anterior Tibialis: 5/5 Right Extensor Hallicus Longus: 5/5 Left Extensor Hallicus Longus: 5/5 Right Plantar Flexion: 5/5 Left Plantar Flexion: 5/5 Right Dorsiflexion: 5/5 Left Dorsiflexion: 5/5 Sensory Exam: Sensation to Pin: Normal sensation to pin prick in the lower extremities. Vibratory Sensation: Normal vibratory sensation in the lower extremities. Light Touch: No evidence for sensory loss. Diagnostic Interpretation In house Location: L-Spine Views: AP, Lateral Findings: Shows retrolisthesis, disc space narrowing, and degenerative changes at L1-L2 above the previous fusion, with some thoracolumbar kyphosis. From outside source Diagnostic Test: MRI L-spine Findings: Shows disc herniation with stenosis, especially at L1-L2 above her previous fusion. ASSESSMENT 1. Spinal stenosis, lumbar (ICD-724.02) as comment only Additional Assessment Thoracolumbar kyphosis, disc herniation, and stenosis. TREATMENT PLAN: T10-L3 Posterior Spinal Instrumentation Fusion Revision and Decompression. She is quite symptomatic. She has not had any improvement with medications or therapy. I have gone over the surgery with her, and she understands. Common risk and benefits have been discussed with the patient, She understands and wants to proceed with the procedure.
--- OUTSIDE RECORDS SUMMARY | 2019-05-15 09:52 | XMS REPORT ---
Author Author Candelario Shepard Organization [employer] Address Unknown Phone Unavailable Care Team Providers Care Swimmer Name Role Phone Candelario Shepard CP Unavailable Encounters Encounter Location Date Unknown Candelario Shepard MD [place] April 17, 2014 Problems Problem Type Condition ICD-9 Code Onset Dates Condition Status Problem HTN, Benign 401.1 Active Problem Shortness of breath 786.05 Active Problem Atrial fibrillation 427.31 Active Problem CABG Status V45.81 Active Problem Atherosclerotic heart disease [place] coronary artery w/angina pectoris 414.01 Active Problem Coronary atherosclerosis of unspecified type of bypass graft 414.05 Active Problem Atherosclerosis of [place] arteries of the extremities with intermittent claudication 440.21 Active Problem Angina 413.9 Active Problem Arteriosclerosis of carotid artery 433.10 Active Problem Chest Pain 786.51 Active Problem Abnormal EKG 794.31 Active Problem Swelling of limb 729.81 Active Problem Hypercholesterolemia 272.0 Active Problem PTCA Status V45.82 Active Problem Sinus Bradycardia 427.89 Active Medications Medication Code System Code Instructions Start Date End Date Status Dosage Crestor MEDISPAN [address]-72 20 mg Orally Once a day Active 1 tablet Social History Social History Element Qualifiers Date Reported Smoking . Status Never Smoker May 07, 2014 Alcohol Use Yes. May 07, 2014 Alcohol Screening: Yes. May 07, 2014 Marital Status: . May 07, 2014 Do you drink alcohol? Yes. May 07, 2014 Summary Purpose [employer] Submission
--- OUTSIDE RECORDS SUMMARY | 2019-05-15 09:52 | XMS REPORT ---
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 Active Problem Atherosclerosis of [place] arteries of extremity with intermittent claudication I70.219 Active Problem Swelling of lower extremity M79.89 Active Problem LAE (left atrial enlargement) I51.7 Active Problem Nonrheumatic mitral (valve) insufficiency I34.0 Active Problem 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, unspecified whether [place] or transplanted heart I25.709 Active Problem Hypercholesteremia E78.0 Active Problem Left ventricular diastolic dysfunction with preserved systolic function I50.30 Active Problem 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 Status Never Smoker May 06, 2016 Alcohol Use Yes. May 06, 2016 Alcohol Screening: Yes. May 06, 2016 Marital Status: . May 06, 2016 Do you drink alcohol? Yes. May 06, 2016 Occupation: . House May 06, 2016 Summary Purpose [employer] Submission
--- OUTSIDE RECORDS SUMMARY | 2019-05-15 09:52 | XMS REPORT | Summary of Care ---
Author Author [facility] Organization [facility] Address Unknown Phone Unavailable Encounter TIFFANY Jennings(NORMA) [id number] Date(s): 08/10/17 - 08/10/17 [facility] [address] [place] [address]- [phone] Discharge Disposition: Home or Self Care Attending Physician: Lamine Lackey MD Vital Signs No data available for this section Problem List Condition Effective Dates Status Health [...] DIFFICULTY Active DIAPHORESIS iodine topical Active Medications No data available for this section Results No data available for this section Immunizations Given and Recorded Vaccine Date Status [...] Smoking Cessation Counseling No Assessment and Plan No data available for this section
--- OUTSIDE RECORDS SUMMARY | 2019-05-15 09:52 | XMS REPORT | Summary of Care ---
Author Author [facility] Organization [facility] Address Unknown Phone Unavailable Encounter HQ Encntr_alitejal(FIN) [id number] Date(s): 08/10/16 - 08/10/16 [facility] [address] [id number]- [phone] Discharge Disposition: Home or Self Care Attending Physician: Renzo Mazariegos MD Vital Signs No data available for this section Problem List No data available for this section Allergies, Adverse Reactions, Alerts Substance Reaction Severity Status codeine Active CODEINE, AND DEMEROL Active Demerol Active Medications No data available for this section Results No data available for this section Immunizations No data available for this section Procedures No data available for this section Social History No data available for this section Assessment and Plan No data available for this section
--- OUTSIDE RECORDS SUMMARY | 2019-05-15 09:52 | XMS REPORT ---
Author Author Candelario Shepard Organization [employer] Address Unknown Phone Unavailable Care Team Providers Care It Sales Representative Name Role Phone Candelario Shepard CP Unavailable Encounters Encounter Location Date Unknown Candelario Shepard MD [place] April 17, 2014 Unknown Candelario Shepard MD [place] June 18, 2014 Unknown Candelario Shepard MD [place] Jul 29, 2015 Problems Problem Type Condition ICD-9 Code Onset Dates Condition Status Problem Atherosclerosis of [place] arteries of the extremities with intermittent claudication 440.21 Active Problem Arteriosclerosis of carotid artery 433.10 Active Problem Chest Pain 786.51 Active Problem Diastolic dysfunction, left ventricle 429.9 Active Problem Acute mitral insufficiency 424.0 Active Problem Varicose veins of lower extremities with complications 454.8 Active Problem CABG Status V45.81 Active Problem Atherosclerotic heart disease [place] coronary artery w/angina pectoris 414.01 Active Problem Nonrheumatic tricuspid (valve) insufficiency 424.2 Active Problem Coronary atherosclerosis of unspecified type of bypass graft 414.05 Active Problem Abnormal EKG 794.31 Active Problem Swelling of limb 729.81 Active Problem PTCA Status V45.82 Active Problem HTN, Benign 401.1 Active Problem Atrial fibrillation 427.31 Active Problem Hypercholesterolemia 272.0 Active Problem Shortness of breath 786.05 Active Problem Sinus Bradycardia 427.89 Active Problem Angina 413.9 Active Medications Medication Code System Code Instructions Start Date End Date Status Dosage Clopidogrel Bisulfate [facility] [address]-60 75 mg Orally once a day Active TAKE 1 TABLET BY MOUTH EVERY DAY Social History Social History Element Qualifiers Date Reported Smoking . Status Never Smoker Aug 07, 2014 Alcohol Use Yes. Aug 07, 2014 Alcohol Screening: Yes. Aug 07, 2014 Marital Status: . Aug 07, 2014 Do you drink alcohol? Yes. Aug 07, 2014 Summary Purpose [employer] Submission
--- OUTSIDE RECORDS SUMMARY | 2019-05-15 09:52 | XMS REPORT ---
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 Active Problem Atherosclerosis of [place] arteries of extremity with intermittent claudication I70.219 Active Problem Swelling of lower extremity M79.89 Active Problem Atherosclerosis of [place] coronary artery of [place] heart without angina pectoris I25.10 Active Assessment Low back pain M54.5 Active Problem Encounter for pre-operative cardiovascular clearance Z01.810 Active Problem Status post ablation of incompetent vein using laser Z98.890 Active Problem Hypercholesteremia E78.00 Active Problem Left ventricular diastolic dysfunction with preserved systolic function I50.30 Active Problem 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, unspecified whether [place] or transplanted heart I25.709 Active Problem Atherosclerosis of coronary artery bypass graft without angina pectoris I25.810 Active Assessment Abnormal EKG R94.31 Active Assessment HEND[place] (dyspnea on exertion) R06.09 Active Assessment Atherosclerosis of [place] arteries of extremity with intermittent claudication I70.219 Active Assessment Hypercholesteremia E78.00 Active Assessment 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 Active Problem Low back pain M54.5 Active Assessment Swelling of lower extremity M79.89 Active Problem [place]END[place] (dyspnea on exertion) R06.09 Active Assessment Atherosclerosis of coronary artery bypass graft without angina pectoris I25.810 Active Problem Abnormal EKG R94.31 Active Medications Medication Code System Code Instructions Start Date End Date Status Dosage Lisinopril-Hydrochlorothiazide [facility] [address]-79 20-25 MG Orally Once a day Active 1/2 half tablet Metoprolol Tartrate [facility] [address]-61 25 MG Orally Twice a day Active 1/2 tablet Rosuvastatin Calcium [facility] [address]-57 10 MG Orally Once a day Active 1 tablet HydrALAZINE HCl [facility] [address]-77 50 MG Orally daily Active 1/2 half tablet Ergocalciferol [facility] [address]-51 49254 UNIT Orally qweekly Active 1 capsule Clopidogrel Bisulfate [facility] [address]-42 75 mg Orally once a day Active TAKE 1 TABLET BY MOUTH EVERY DAY Vital Signs Date/Time: Aug 16, 2017 BMI 30.41 Index Weight 200 lbs Height 68 in Temperature 98.3 F Cardiac Monitoring Heart Rate 60 /min Blood Pressure Diastolic 86 mm Hg Blood Pressure Systolic 132 mm Hg Results No Known Results Summary Purpose [employer]Works Submission
--- OUTSIDE RECORDS SUMMARY | 2019-05-15 09:53 | XMS REPORT ---
Author Author [facility] Address Unknown Phone Unavailable Care Team Providers Care Recreation Clerk Name Role Phone Roberto BROWN Unavailable Unavailable Payers Payer Name Policy Type Policy Number Effective Date Expiration Date Problems This patient has no known problems. Allergies, Adverse Reactions, Alerts Allergy Name Allergy Type Status Severity Reaction(s) Onset Date Inactive Date Treating Clinician Comments meperidine HCl DA Active MO 2019-04-07 00:00:00 naproxen DA Active U 2019-04-07 00:00:00 naproxen DA Active U 2019-03-05 00:00:00 meperidine HCl DA Active MO 2017-02-08 00:00:00 simvastatin DA Active SV 2017-02-08 00:00:00 atorvastatin DA Active SV 2017-02-08 00:00:00 ezetimibe DA Active SV 2017-02-08 00:00:00 Medications This patient has no known medications. Results Test Description Test Time Test Comments Text Results Atomic Results Result Comments CHEST 2 VIEWS 2019-05-11 14:04:00 [facility] [address] [address] Patient Name: JONAS AMOS MR #: [id number] : 1940 Age/Sex: 78/F Req #: [id number] Adm Physician: Ordered by: ZOILA BROWN MD Report #: [id number] Location: OR Room/Bed: Procedure: [id number] DX/CHEST 2 VIEWS Exam Date: 05/11/19 Exam Time: 1315 REPORT STATUS: Signed EXAM: CHEST 2 VIEWS, PA and lateral DATE: 05/11/[address] amp on exam: 1:13 PM INDICATION: Preoperative for abdominal surgery COMPARISON: 07/01/2017 FINDINGS: LINES/TUBES: There are wire sutures. Orthopedic hardware present involving the lower thoracic and upper lumbar spine LUNGS: No consolidations or edema. PLEURA: No effusions or pneumothorax. HEART AND MEDIASTINUM: Heart is enlarged. There is tortuosity of the thoracic aorta. BONES AND SOFT TISSUES: No acute findings. Degenerative changes of the spine. IMPRESSION: Cardiomegaly without evidence of decompensation. Signed by: Dr. Zane Angelo DO on 05/11/2019 2:05 PM Dictated By: ZANE ANGELO DO 1405 Transcribed By: MIKE on 05/11/19 1405 COPY TO: ZOILA BROWN MD COAGULATION TIME ACTIVATED 2019-04-11 12:07:00 COAGULATION TIME ACTIVATED (test code=ACT) 382 seconds 62.8-88.0 COAGULATION TIME [id number] 12:07:00* Test Item Value Reference Range Comments COAGULATION TIME ACTIVATED (test code=ACT) 393 seconds 62.8-88.0 COMPREHENSIVE METABOLIC [id number] 05:37:00* Test Item Value Reference Range Comments SODIUM (test code=NA) 139 mmol/L 136-145 POTASSIUM (test code=K) 4.7 mmol/L 3.5-5.1 CHLORIDE (test code=CL) 107.0 mmol/L 98-107 CARBON DIOXIDE (test code=CO2) 26.0 mmol/L 21-32 ANION GAP (test code=GAP) 10.7 10-20 GLUCOSE (test code=GLU) 94 mg/dL 74-106 BLOOD UREA NITROGEN (test code=BUN) 25 mg/dL 7-18 GLOMERULAR FILTRATION RATE (test code=GFR) 43 mL/min >=60 Estimated GFR by using Modified MDRD formula.Chronic kidney disease is defined as either kidney damageor GFR <60 mL/min/1.73 m2 for >3 months. CREATININE (test code=CREAT) 1.20 mg/dL 0.55-1.02 Note change in reference range due to change in reagent. BUN/CREATININE RATIO (test code=BUN/CREA) 20.8 10-20 TOTAL PROTEIN (test code=PROT) 5.7 gram/dL 6.4-8.2 ALBUMIN (test code=ALB) 2.9 g/dL 3.4-5.0 GLOBULIN (test code=GLOB) 2.8 gram/dL 2.7-4.2 ALBUMIN/GLOBULIN RATIO (test code=A/G) 1.0 0.75-1.50 CALCIUM (test code=CA) 8.3 mg/dL 8.5-10.1 BILIRUBIN TOTAL (test code=BILT) 1.00 mg/dL 0.0-1.0 SGOT/AST (test code=AST) 11 IUnit/L 15-37 SGPT/ALT (test code=ALT) 18 IUnit/L 12-78 ALKALINE PHOSPHATASE TOTAL (test code=ALKP) 72 IUnit/L 45-117 Note change in reference range due to change in reagent. COMPREHENSIVE METABOLIC [id number] 05:28:00* Test Item Value Reference Range Comments SODIUM (test code=NA) 139 mmol/L 136-145 POTASSIUM (test code=K) 4.7 mmol/L 3.5-5.1 CHLORIDE (test code=CL) 107.0 mmol/L 98-107 CARBON DIOXIDE (test code=CO2) mmol/L 21-32 ANION GAP (test code=GAP) 10-20 GLUCOSE (test code=GLU) mg/dL 74-106 BLOOD UREA NITROGEN (test code=BUN) mg/dL 7-18 GLOMERULAR FILTRATION RATE (test code=GFR) mL/min >=60 CREATININE (test code=CREAT) mg/dL 0.55-1.02 BUN/CREATININE RATIO (test code=BUN/CREA) 10-20 TOTAL PROTEIN (test code=PROT) gram/dL 6.4-8.2 ALBUMIN (test code=ALB) g/dL 3.4-5.0 GLOBULIN (test code=GLOB) gram/dL 2.7-4.2 ALBUMIN/GLOBULIN RATIO (test code=A/G) 0.75-1.50 CALCIUM (test code=CA) mg/dL 8.5-10.1 BILIRUBIN TOTAL (test code=BILT) mg/dL 0.0-1.0 SGOT/AST (test code=AST) IUnit/L 15-37 SGPT/ALT (test code=ALT) IUnit/L 12-78 ALKALINE PHOSPHATASE TOTAL (test code=ALKP) IUnit/L 45-117 CBC W/AUTO [id number] 05:18:00* Test Item Value Reference Range Comments WHITE BLOOD CELL (test code=WBC) 9.3 K/mm3 4.5-12.5 RED BLOOD CELL (test code=RBC) 4.60 mill/mm3 3.7-5.2 HEMOGLOBIN (test code=HGB) 14.3 gram/dL 11.5-15.5 HEMATOCRIT (test code=HCT) 43.7 % 36.0-46.0 MEAN CELL VOLUME (test code=MCV) 95.0 fL 80-98 MEAN CELL HGB (test code=MCH) 31.1 picogram 27.0-33.0 MEAN CELL HGB CONCETRATION (test code=MCHC) 32.7 gram/dL 33.0-36.0 RED CELL DISTRIBUTION WIDTH (test code=RDW) 13.2 % 11.6-16.2 RED CELL DISTRIBUTION WIDTH SD (test code=RDW-SD) 46.3 fL 37.0-51.0 PLATELET COUNT (test code=PLT) 151 K/mm3 150-450 MEAN PLATELET VOLUME (test code=MPV) 10.1 fL 6.7-11.0 NEUTROPHIL % (test code=NT%) 65.3 % 39.0-69.0 IMMATURE GRANULOCYTE % (test code=IG%) 0.5 % 0.0-5.0 LYMPHOCYTE % (test code=LY%) 21.5 % 25.0-55.0 MONOCYTE % (test code=MO%) 9.8 % 0.0-10.0 EOSINOPHIL % (test code=EO%) 2.7 % 0.0-5.0 BASOPHIL % (test code=BA%) 0.2 % 0.0-1.0 NUCLEATED RBC % (test code=NRBC%) 0.0 % 0-0 NEUTROPHIL # (test code=NT#) 6.05 K/mm3 1.8-7.7 IMMATURE GRANULOCYTE # (test code=IG#) 0.05 x10 3/uL 0-0.03 LYMPHOCYTE # (test code=LY#) 1.99 K/mm3 1.0-5.0 MONOCYTE # (test code=MO#) 0.91 K/mm3 0-0.8 EOSINOPHIL # (test code=EO#) 0.25 K/mm3 0.0-0.5 BASOPHIL # (test code=BA#) 0.02 K/mm3 0.0-0.2 NUCLEATED RBC # (test code=NRBC#) 0.00 K/mm3 0.0-0.1 [id number] 12:24:00* Test Item Value Reference Range Comments TROPONIN-I (test code=TROPI) <0.015 ng/mL 0-0.045 COMMENTS TO BOX INSPECTOR: COLLECT 3 HOURS AFTER PREVIOUS SAMPLELIPID PROFILE (CORONARY RISK)2019-04-07 11:29:00* Test Item Value Reference Range Comments TRIGLYCERIDES (test code=TRIG) 348 mg/dL 20-150 CHOLESTEROL (test code=CHOL) 253 mg/dL 0-200 CHOLESTEROL/HDL RATIO (test code=CHOLHDL) 5.0 RATIO 0-4.9 RISK ASSOCIATED WITH CHOL/HDL RATIOS: Risk Male Female1/2 AVERAGE 3.43 3.27AVERAGE 4.97 4.442X AVERAGE 9.55 7.053X AVERAGE 23.39 11.04 REFERENCE VALUE IS RELATED TO RISK LEVELS ASRECOMMENDED BY THE JEN. HEART, LUNG, AND BLOOD INST. HDL CHOLESTEROL (test code=HDL) 44 mg/dL 40-60 LIPOPROTEIN LDL (test code=LDL) 164 mg/dL 100-129 RN PERSONNEL, CONTACT PHYSICIAN IMMEDIATELY IF THIS IS A STROKE, AMI OR CAROTID STENOSIS PATIENT WHEN THE LDL >100 (1ST OCCURENCE, THIS ADMISSION) Reference Interval: mg/dL mmol/L Optimal <100 <2.6Near/above optimal 100-129 2.6- 3.3Borderline High 130-159 3.4-4.1High 160-189 4.1-4.9Very High >=190 >=4.9=========This LDL result is a direct measurement.========= [id number] 10:45:00* Test Item Value Reference Range Comments TROPONIN-I (test code=TROPI) <0.015 ng/mL 0-0.045 COMMENTS TO BOX INSPECTOR: COLLECT 3 HOURS AFTER PREVIOUS SAMPLE- CT ABD PELVIS W/O [id number] 07:05:00 Name: JONAS AMOS [facility] : 1940 Age/S: 78 / F [address] [facility] Unit #: [id number] Loc: M[place] [address] Phys: Jared Rice MD Acct: [id number] Dis Date: Status: ADM IN PHONE #: [phone] Exam Date: 04/07/2019 0300 FAX #: [phone] Reason: abd pain vomit EXAMS: CPT CODE: [id number] CT ABD PELVIS W/O CONT 06244 TECHNIQUE: - CT ABD PELVIS W/O CONT . This exam was performed using one or more of the following dose reduction techniques: Automated exposure control, adjustment of the mA and/ or kV according to patient size or use of iterative reconstruction technique. COMPARISON: Abdomen and pelvis 04/01/2019 HISTORY: 78 years Female abd pain vomit FINDINGS: CT ABDOMEN: Included lung bases and visualized lower mediastinum: No significant abnormalities in included lung bases. No significant abnormality in the visualized lower mediastinum. Liver: Normal in size and density. No focal lesions. Gallbladder and biliary ducts: Cholecystectomy. No intra-or extrahepatic biliary ductal dilatation. Spleen: Coarse ca lcifications in the spleen. Adrenals: No adrenal nodules or enlarg ement. Pancreas: No focal lesion, calcifications, pancreatic duct dilatation, or peripancreatic fluid collections. Right kidne y: Normal in position and size. No stones. No hydronephrosis. No foca l lesions. Left kidney: Normal in position and size. No stones. No hydronephrosis. No focal lesions. GI structures: No small or large bowel dilatation. No small or large bowel wall thick ening. Retention of stool in the colon. The PAGE 1 Signed Report (CONTINUED) Name: JONAS AMOS [facility] : 1940 Age/S: 78 / F [address] [facility] Unit #: [id number] Loc: [place] [address] Phys: Jared Rice MD Acct: [id number] Dis Date: Status: ADM IN PHONE #: [phone] Exam Date: 0300 FAX #: [phone] Reason: abd pain vomit EXAMS: CPT CODE: [id number] CT ABD PELVIS W/O CONT 02218 <Continued> appendix is not well visualized, there are no inflammatory changes adjacent to cecum. There is evidence of diverticulosis mostly involving the sigmoid colon. No evidence of acute diverticulitis. Retroperitoneum and mesentery: No significant lymphadenopathy. No free fluid. No free air. No mesenteric abnormalities. No retroperitoneal abnormality. Abdominal wall: No abdominal wall hernia. Vascular structures: Age appropriate. No aneurysm. Osseous structures: Age appropriate. Lumbar spine fusion with artifact. Soft tissues and musculoskeletal structures: No significant findings. CT PELVIS: The urinary bladder is partially distended and appears unremarkable from this exam. Calcified fibroids in the uterus. No significant lymphadenopathy. No free fluid. No inflammatory changes. No inguinal abnormalities. IMPRESSION: Retention of stool in the colon. Cholecystectomy. Lumbar spine fusion. Diverticulosis. at 0705 Reported and signed by: Jamin Alvarenga M.D. PAGE 2 Signed Report (CONTINUED) [facility] 1940 [facility]/S: 78 / F [address] Unit #: [id number] Loc: [place] [address] Phys: Jared Rice MD Acct: [id number] Dis Date: Status: ADM IN PHONE #: [phone] Exam Date: 04/07/2019 0300 FAX #: [phone] Reason: abd pain vomit EXAMS: CPT CODE: [id number] CT ABD PELVIS W/O CONT 68528 <Continued> CC: Lamine Lackey; Jared Rice MD Technologist:CAIN GROSS, RT; Jose Campbell CTDI: DLP: Trnscb Date/Time: 04/07/2019 (704) tBURT Orig Print D/T: S: 04/07/2019 (707) PAGE 3 Signed Report B- TYPE NATRIURETIC [id number] 00:08:00* Test Item Value Reference Range Comments B-TYPE NATRIURETIC PEPTIDE (test code=BNP) 162.89 pgram/mL 0-100 HEPATIC FUNCTION [id number] 23:17:00* Test Item Value Reference Range Comments TOTAL PROTEIN (test code=PROT) 6.6 gram/dL 6.4-8.2 ALBUMIN (test code=ALB) 3.4 g/dL 3.4-5.0 GLOBULIN (test code=GLOB) 3.2 gram/dL 2.7-4.2 ALBUMIN/GLOBULIN RATIO (test code=A/G) 1.1 0.75-1.50 BILIRUBIN TOTAL (test code=BILT) 0.80 mg/dL 0.0-1.0 BILIRUBIN DIRECT (test code=BILD) 0.10 mg/dL 0.0-0.20 SGOT/AST (test code=AST) 18 IUnit/L 15-37 SGPT/ALT (test code=ALT) 27 IUnit/L 12-78 ALKALINE PHOSPHATASE TOTAL (test code=ALKP) 85 IUnit/L 45-117 Note change in reference range due to change in reagent. [id number] 23:17:00* Test Item Value Reference Range Comments LIPASE (test code=LIP) 407 U/L 73.0-393.0 BASIC METABOLIC [id number] 23:17:00* Test Item Value Reference Range Comments SODIUM (test code=NA) 142 mmol/L 136-145 POTASSIUM (test code=K) 3.9 mmol/L 3.5-5.1 CHLORIDE (test code=CL) 109.0 mmol/L 98-107 CARBON DIOXIDE (test code=CO2) 26.0 mmol/L 21-32 ANION GAP (test code=GAP) 10.9 10-20 GLUCOSE (test code=GLU) 113 mg/dL 74-106 BLOOD UREA NITROGEN (test code=BUN) 32 mg/dL 7-18 GLOMERULAR FILTRATION RATE (test code=GFR) 40 mL/min >=60 Estimated GFR by using Modified MDRD formula.Chronic kidney disease is defined as either kidney damageor GFR <60 mL/min/1.73 m2 for >3 months. CREATININE (test code=CREAT) 1.30 mg/dL 0.55-1.02 Note change in reference range due to change in reagent. BUN/CREATININE RATIO (test code=BUN/CREA) 24.6 10-20 CALCIUM (test code=CA) 8.4 mg/dL 8.5-10.1 [id number] 23:17:00* Test Item Value Reference Range Comments TROPONIN-I (test code=TROPI) <0.015 ng/mL 0-0.045 PROTHROMBIN [id number] 23:13:00* Test Item Value Reference Range Comments PROTHROMBIN TIME PATIENT (test code=PTP) 10.9 seconds 9.0-14.0 INTERNATIONAL NORMAL RATIO (test code=INR) 0.9 0.8-1.2 The therapeutic range for oral anticoagulant therapy formost indications is an international normalized ratio (INR)of between 2.0 and 3.0. The recommended therapeutic INRrange for various clinical situations is listed below: Clinical Situation INR range Pulmonary e mbolism treatment (2.0-3.0)Venous thrombosis treatmentVenous thrombosis prophylaxis (high risk surgery)Prevention of systemic embolism from: Acute myocardial infarction Valvular heart disease Atrial fibrillation Mechanical prosthetic heart valves (2.5-3.5) IS PATIENT ON ANTICOAGULANTS? NTHROMBOPLASTIN TIME [id number] 23:13:00* Test Item Value Reference Range Comments THROMBOPLASTIN TIME PARTIAL (test code=PTT) 27.5 seconds 25.0-36.5 IS PATIENT ON ANTICOAGULANTS? N- XR CHEST 1 [id number] 23:12:00 FAX: Lamine Hernandez MD [phone] [place]: St: [facility] FAX: Jared Rice MD [phone] Name: JONAS AMOS LEO [facility] : 1940 Age/S: 78/F [address] [facility] Unit #: [id number] Loc: [place] [address] Phys: Jared Rice MD Acct: [id number] Dis Date: Status: [facility] ER PHONE #: [phone] Exam Date: 04/06/2019 2301 FAX #: [phone] Reason: CHEST PAIN EXAMS: CPT CODE: [id number] XR CHEST 1 V 49436 HISTORY: Female, 78 years of age with CHEST PAIN EXAM: CHEST X-RAY, ONE VIEW COMPARISON: 03/10/2019 COMMENT: Frontal view of the chest is provided. Sternotomy wires are note d. No focal infiltrate, consolidation, mass lesion, or effusion is seen. Cardiac silhouette is enlarged. No acute bony abnormalities. Hardware agai n seen in the thoracolumbar spine. IMPRESSION: Cardiomegaly. No acute infiltrate or effusion. Location code: R16 * * at 2312 Reported and signed by: Hodan Villalobos MD CC: Lamine Lackey Rajan MD Technologist: NIRALI SAHA, RT(R) Trnscrd Date/Time/By: 04/06/2019 (2 312) : By: DanielCLW Orig Print D/T: S: 04/06/2019 (6946) PAGE 1 Signed Report CBC W/O [id number] 23:07:00* Test Item Value Reference Range Comments WHITE BLOOD CELL (test code=WBC) 8.3 K/mm3 4.5-12.5 RED BLOOD CELL (test code=RBC) 4.78 mill/mm3 3.7-5.2 HEMOGLOBIN (test code=HGB) 14.7 gram/dL 11.5-15.5 HEMATOCRIT (test code=HCT) 43.0 % 36.0-46.0 MEAN CELL VOLUME (test code=MCV) 90.0 fL 80-98 MEAN CELL HGB (test code=MCH) 30.8 picogram 27.0-33.0 MEAN CELL HGB CONCETRATION (test code=MCHC) 34.2 gram/dL 33.0-36.0 RED CELL DISTRIBUTION WIDTH (test code=RDW) 13.2 % 11.6-16.2 PLATELET COUNT (test code=PLT) 181 K/mm3 150-450 MEAN PLATELET VOLUME (test code=MPV) 10.3 fL 6.7-11.0 BASIC METABOLIC [id number] 23:05:00* Test Item Value Reference Range Comments SODIUM (test code=NA) 142 mmol/L 136-145 POTASSIUM (test code=K) 3.9 mmol/L 3.5-5.1 CHLORIDE (test code=CL) 109.0 mmol/L 98-107 CARBON DIOXIDE (test code=CO2) mmol/L 21-32 ANION GAP (test code=GAP) 10-20 GLUCOSE (test code=GLU) mg/dL 74-106 BLOOD UREA NITROGEN (test code=BUN) mg/dL 7-18 GLOMERULAR FILTRATION RATE (test code=GFR) mL/min >=60 CREATININE (test code=CREAT) mg/dL 0.55-1.02 BUN/CREATININE RATIO (test code=BUN/CREA) 10-20 CALCIUM (test code=CA) mg/dL 8.5-10.1 [id number] 23:05:00* Test Item Value Reference Range Comments TROPONIN-I (test code=TROPI) ng/mL 0-0.045 - CT HEAD/BRAIN W/O [id number] 23:03:00 Name: JONAS AMOS [facility] : 1940 Age/S: 78 / F [address] [facility] Unit #: [id number] Loc: M[place] [address] Phys: Jared Rice MD Acct: [id number] Dis Date: Status: REG ER PHONE #: [phone] Exam Date: 04/06/20192299 FAX #: [phone] Reason: headache EXAMS: CPT CODE: [id number] CT HEAD/BRAIN W/O CONT 10405 REASON FOR EXAM: headache EXAM ORDER DATE: 04/06/2019 10:45 PM Ordering M.D.: Jared Rice MD PROCEDURE: - CT HEAD/BRAIN W/O CONT COMPARISON: 01/03/2019 FINDINGS: CT images of the brain were obtained without IV contrast. Dose modulation, iterative reconstruction, and/or weight based adjustment of the MA/KV was utilized to reduce the radiation dose to as low as reasonably achievable. Mild patchy low densities appearance of the paraventricular region noted consistent with nonspecific white matter disease. The smith-white matter delineation is unremarkable. The ventricles, cisterns, and sulci are unremarkable. There is no evidence of hemorrhage, mass, mass effect. There is no evidence of acute or old infarct. The calvarium is intact. IMPRESSION: Unremarkable brain. at 2303 Reported and signed by: Tariq Abdul M.D. CC: Lamine Lackey Rajan MD Technologist:CAIN GROSS, RT CTDI: DLP: Trnscb Date/Time: 04/06/2019 (2303) [email or web address] Orig Print D/T: S: 04/06/2019 (5816) PAGE 1 Signed Report - CT ABD PELVIS [id number] 18:55:00 Name: JONAS AMOS [facility] : 1940 Age/S: 78 / F [address] Unit #: [id number] Loc: M[place] [address] Phys: Candi Shepard MD Acct: [id number] Dis Date: Status: ADM IN PHONE #: [phone] Exam Date: 04/01/2019 184 FAX #: [phone] Reason: Abdominal Pain, Hematuria EXAMS: CPT CODE: [id number] CT ABD PELVIS W/CONT 32799 REASON FOR EXAM: Abdominal Pain, Hematuria EXAM ORDER DATE: 04/01/2019 11:07 AM Ordering Dino.: Candi Shepard MD PROCEDURE: - CT ABD PELVIS W/CONT COMPARISON: FINDINGS: CT images of the abdomen and pelvis were obtained with IV and without oral contrast at 5mm. Dose modulation, iterative reconstruction, and/or weight based adjustment of the MA/KV was utilized to reduce the radiation dose to as low as reas onably achievable. Intravenous contrast: 100cc of Omnipaque 370. The liver, spleen, pancreas are grossly within normal limits. Multiple calcified granulomas seen in the spleen The patient is s tatus post cholecystectomy The kidneys are within normal limits. The urinary bladder is contracted The colon, small bowel, an d stomach are within normal limits without evidence of obstruction. The a ppendix is unremarkable. No evidence of free air or free fluid. T he uterus is unremarkable. The patient is status post posterior fusion of the lumbar spine with laminectomy changes IMPRESSION: No acute findings in the abdomen at 1855 Reported and signed by: Clem Lam CC: Candi Shepard MD; Lamine Lackey Technologist :Kaye Gardner RT(R),CT CTDI: DLP: Trnscb Date/Time: 03/21 (4815) Ashu Orig Print D/T: S: 04/02/2019 (16 51) PAGE 1 Signed Report [id number] 10:42:00* Test Item Value Reference Range Comments TROPONIN-I (test code=TROPI) <0.015 ng/mL 0-0.045 COMMENTS TO BOX INSPECTOR: COLLECT 3 HOURS AFTER PREVIOUS [id number] 05:47:00* Test Item Value Reference Range Comments TROPONIN-I (test code=TROPI) <0.015 ng/mL 0-0.045 COMMENTS TO BOX INSPECTOR: COLLECT 3 HOURS AFTER PREVIOUS SAMPLEURINALYSIS [id number] 23:11:00* Test Item Value Reference Range Comments UA COLOR (test code=COLU) COLORLESS YELLOW UA APPEARANCE (test code=APPU) CLEAR CLEAR UA GLUCOSE DIPSTICK (test code=DGLUU) NEGATIVE mg/dL NEGATIVE UA BILIRUBIN DIPSTICK (test code=BILU) NEGATIVE mg/dL NEGATIVE UA KETONE DIPSTICK (test code=KETU) NEGATIVE mg/dL NEGATIVE UA SPECIFIC GRAVITY (test code=SGU) 1.006 1.001-1.035 UA BLOOD DIPSTICK (test code=CARLTON) 1.0 mg/dL (3+) mg/dL NEGATIVE UA PH DIPSTICK (test code=JEREMY) 6.0 5.0-8.0 UA PROTEIN DIPSTICK (test code=PROU) NEGATIVE mg/dL NEGATIVE UA UROBILINIOGEN DIPSTICK (test code=URO) Normal mg/dL NEGATIVE UA NITRITE DIPSTICK (test code=SHALINI) NEGATIVE NEGATIVE UA LEUKOCYTE ESTERASE W REFLEX (test code=LEUUR) NEGATIVE Marely/uL NEGATIVE UA WBC (test code=WBCU) 6-10 per HPF 0-5 UA RBC (test code=RBCU) 151-200 #/HPF 0-5 UA EPITHELIAL CELLS (test code=EPIU) FEW per HPF FEW UA BACTERIA (test code=BACU) FEW #/HPF NONE Urine Source? Clean CatchBASIC METABOLIC [id number] 22:46:00* Test Item Value Reference Range Comments SODIUM (test code=NA) 143 mmol/L 136-145 POTASSIUM (test code=K) 3.2 mmol/L 3.5-5.1 CHLORIDE (test code=CL) 110.0 mmol/L 98-107 CARBON DIOXIDE (test code=CO2) 26.0 mmol/L 21-32 ANION GAP (test code=GAP) 10.2 10-20 GLUCOSE (test code=GLU) 101 mg/dL 74-106 BLOOD UREA NITROGEN (test code=BUN) 15 mg/dL 7-18 GLOMERULAR FILTRATION RATE (test code=GFR) 48 mL/min >=60 Estimated GFR by using Modified MDRD formula.Chronic kidney disease is defined as either kidney damageor GFR <60 mL/min/1.73 m2 for >3 months. CREATININE (test code=CREAT) 1.10 mg/dL 0.55-1.02 Note change in reference range due to change in reagent. BUN/CREATININE RATIO (test code=BUN/CREA) 13.6 10-20 CALCIUM (test code=CA) 8.5 mg/dL 8.5-10.1 HEPATIC FUNCTION [id number] 22:46:00* Test Item Value Reference Range Comments TOTAL PROTEIN (test code=PROT) 6.9 gram/dL 6.4-8.2 ALBUMIN (test code=ALB) 3.5 g/dL 3.4-5.0 GLOBULIN (test code=GLOB) 3.4 gram/dL 2.7-4.2 ALBUMIN/GLOBULIN RATIO (test code=A/G) 1.0 0.75-1.50 BILIRUBIN TOTAL (test code=BILT) 0.70 mg/dL 0.0-1.0 BILIRUBIN DIRECT (test code=BILD) 0.12 mg/dL 0.0-0.20 SGOT/AST (test code=AST) 13 IUnit/L 15-37 SGPT/ALT (test code=ALT) 18 IUnit/L 12-78 ALKALINE PHOSPHATASE TOTAL (test code=ALKP) 94 IUnit/L 45-117 Note change in reference range due to change in reagent. BASIC METABOLIC [id number] 22:39:00* Test Item Value Reference Range Comments SODIUM (test code=NA) 143 mmol/L 136-145 POTASSIUM (test code=K) 3.2 mmol/L 3.5-5.1 CHLORIDE (test code=CL) 110.0 mmol/L 98-107 CARBON DIOXIDE (test code=CO2) mmol/L 21-32 ANION GAP (test code=GAP) 10-20 GLUCOSE (test code=GLU) mg/dL 74-106 BLOOD UREA NITROGEN (test code=BUN) mg/dL 7-18 GLOMERULAR FILTRATION RATE (test code=GFR) mL/min >=60 CREATININE (test code=CREAT) mg/dL 0.55-1.02 BUN/CREATININE RATIO (test code=BUN/CREA) 10-20 CALCIUM (test code=CA) mg/dL 8.5-10.1 HEPATIC FUNCTION [id number] 22:39:00* Test Item Value Reference Range Comments TOTAL PROTEIN (test code=PROT) gram/dL 6.4-8.2 ALBUMIN (test code=ALB) g/dL 3.4-5.0 GLOBULIN (test code=GLOB) gram/dL 2.7-4.2 ALBUMIN/GLOBULIN RATIO (test code=A/G) 0.75-1.50 BILIRUBIN TOTAL (test code=BILT) mg/dL 0.0-1.0 BILIRUBIN DIRECT (test code=BILD) mg/dL 0.0-0.20 SGOT/AST (test code=AST) IUnit/L 15-37 SGPT/ALT (test code=ALT) IUnit/L 12-78 ALKALINE PHOSPHATASE TOTAL (test code=ALKP) IUnit/L 45-117 CBC W/O [id number] 22:35:00* Test Item Value Reference Range Comments WHITE BLOOD CELL (test code=WBC) 7.3 K/mm3 4.5-12.5 RED BLOOD CELL (test code=RBC) 4.58 mill/mm3 3.7-5.2 HEMOGLOBIN (test code=HGB) 13.9 gram/dL 11.5-15.5 HEMATOCRIT (test code=HCT) 43.1 % 36.0-46.0 MEAN CELL VOLUME (test code=MCV) 94.1 fL 80-98 MEAN CELL HGB (test code=MCH) 30.3 picogram 27.0-33.0 MEAN CELL HGB CONCETRATION (test code=MCHC) 32.3 gram/dL 33.0-36.0 RED CELL DISTRIBUTION WIDTH (test code=RDW) 13.2 % 11.6-16.2 PLATELET COUNT (test code=PLT) 206 K/mm3 150-450 MEAN PLATELET VOLUME (test code=MPV) 10.4 fL 6.7-11.0 CBC W/O [id number] 22:25:00* Test Item Value Reference Range Comments WHITE BLOOD CELL (test code=WBC) K/mm3 4.5-12.5 RED BLOOD CELL (test code=RBC) mill/mm3 3.7-5.2 HEMOGLOBIN (test code=HGB) 13.9 gram/dL 11.5-15.5 HEMATOCRIT (test code=HCT) 43.1 % 36.0-46.0 MEAN CELL VOLUME (test code=MCV) fL 80-98 MEAN CELL HGB (test code=MCH) picogram 27.0-33.0 MEAN CELL HGB CONCETRATION (test code=MCHC) gram/dL 33.0-36.0 RED CELL DISTRIBUTION WIDTH (test code=RDW) % 11.6-16.2 PLATELET COUNT (test code=PLT) K/mm3 150-450 MEAN PLATELET VOLUME (test code=MPV) fL 6.7-11.0 - XR KNEE 3 V [id number] 10:10:00 FAX: Keaton Law MD [phone] [place]: O St: REG FAX: Lamine Hernandez MD [phone] Name: JONAS AMOS [facility] : 1940 Age/S: 78/F [address] [facility] Unit #: [id number] Loc: [place] [address] Phys: Keaton Ayala MD Acct: [id number] Dis Date: Status: REG RCR PHONE #: [phone] Exam Date: 03/27/2019 09 FAX #: [phone] Reason: PAIN EXAMS: CPT CODE: [id number] XR KNEE 3 [place] [address] HISTORY: Pain. COMPARISON: Right knee x-ray from March 14, 2015. 3 views each of the right and left knee: No acute fracture or dislocation. Severe near complete loss of joint s paces bilaterally especially on the right side. Subchondral sclerosis. Mar ginal osteophytes consistent with advanced osteoarthritis. 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 No joint fluid. Mineralization and the soft tissues are normal. IMPRESSION: No acute fracture or d islocation of either knee. Near-complete loss of medial joint space bila terally especially on the right with [id number] appearance and subchon dral sclerosis. Associated osteophyte suggesting advanced osteoarthritis . at 1010 * * Reported and signed by: Clint Wu M.D. CC: Keaton Ayala MD; Lamine Lackey Technologist: Sonya Leyva RT(R) Trnscrd Date/Time/By: 05/2019 (1010) : By: [email or web address] Orig Print D/T: S: 03/27/2019 (1013) PAGE 1 Signed Report - XR CHEST 1 [id number] 08:02:00 FAX: Callum Solorio [phone] [place]: B St: ADM FAX: Candi eWst MD [phone] FAX: Lamine Hernandez MD [phone] Name: JONAS AMOS [facility] : 1940 Age/S: 78/F [address] [facility] Unit #: [id number] Loc: [address] [place] [address] Phys: Lamine Lackey MD Acct: [id number] Dis Date: Status: ADM IN ONE #: [phone] Exam Date: 03/10/2019 07 FAX #: [phone] Reason: SOB EXAMS: CPT CODE: [id number] XR CHEST 1 V 38153 EXAM: Chest x- ray, one view; INFORMATION: Shortness of breath; status post ablat ion for A. fib; IMPRESSION: 1. New right basilar densit ies probably representing partial atelectasis of the right lower lobe. 2. Otherwise no evidence of acute cardiothoracic abnormalities. 3. Moderate cardiomegaly. at 0802 Reported and signed by: Jonnie Hwang M.D. CC: Callum Villatoro MD; Candi Shepard MD; Lamine Lackey Technol ogist: LISSETTE FOSS RT(R) Trnscrd Date/Time/ By: 03/10/2019 (08) : By: DanielGRW Orig Print D/T: S: 03/10/2019 (0 465) PAGE 1 Signed Report BASIC METABOLIC [id number] 05:22:00* Test Item Value Reference Range Comments SODIUM (test code=NA) 139 mmol/L 136-145 POTASSIUM (test code=K) 3.3 mmol/L 3.5-5.1 CHLORIDE (test code=CL) 107.0 mmol/L 98-107 CARBON DIOXIDE (test code=CO2) 26.0 mmol/L 21-32 ANION GAP (test code=GAP) 9.3 10-20 GLUCOSE (test code=GLU) 97 mg/dL 74-106 BLOOD UREA NITROGEN (test code=BUN) 15 mg/dL 7-18 GLOMERULAR FILTRATION RATE (test code=GFR) 60 mL/min >=60 Estimated GFR by using Modified MDRD formula.Chronic kidney disease is defined as either kidney damageor GFR <60 mL/min/1.73 m2 for >3 months. CREATININE (test code=CREAT) 0.90 mg/dL 0.55-1.02 Note change in reference range due to change in reagent. BUN/CREATININE RATIO (test code=BUN/CREA) 16.7 10-20 CALCIUM (test code=CA) 8.0 mg/dL 8.5-10.1 BASIC METABOLIC [id number] 05:18:00* Test Item Value Reference Range Comments SODIUM (test code=NA) 139 mmol/L 136-145 POTASSIUM (test code=K) 3.3 mmol/L 3.5-5.1 CHLORIDE (test code=CL) 107.0 mmol/L 98-107 CARBON DIOXIDE (test code=CO2) mmol/L 21-32 ANION GAP (test code=GAP) 10-20 GLUCOSE (test code=GLU) mg/dL 74-106 BLOOD UREA NITROGEN (test code=BUN) mg/dL 7-18 GLOMERULAR FILTRATION RATE (test code=GFR) mL/min >=60 CREATININE (test code=CREAT) mg/dL 0.55-1.02 BUN/CREATININE RATIO (test code=BUN/CREA) 10-20 CALCIUM (test code=CA) mg/dL 8.5-10.1 CBC W/AUTO [id number] 04:59:00* Test Item Value Reference Range Comments WHITE BLOOD CELL (test code=WBC) 8.5 K/mm3 4.5-12.5 RED BLOOD CELL (test code=RBC) 3.98 mill/mm3 3.7-5.2 HEMOGLOBIN (test code=HGB) 12.0 gram/dL 11.5-15.5 HEMATOCRIT (test code=HCT) 39.0 % 36.0-46.0 MEAN CELL VOLUME (test code=MCV) 98.0 fL 80-98 MEAN CELL HGB (test code=MCH) 30.2 picogram 27.0-33.0 MEAN CELL HGB CONCETRATION (test code=MCHC) 30.8 gram/dL 33.0-36.0 RED CELL DISTRIBUTION WIDTH (test code=RDW) 13.2 % 11.6-16.2 RED CELL DISTRIBUTION WIDTH SD (test code=RDW-SD) 47.8 fL 37.0-51.0 PLATELET COUNT (test code=PLT) 146 K/mm3 150-450 MEAN PLATELET VOLUME (test code=MPV) 10.5 fL 6.7-11.0 NEUTROPHIL % (test code=NT%) 75.7 % 39.0-69.0 IMMATURE GRANULOCYTE % (test code=IG%) 0.4 % 0.0-5.0 LYMPHOCYTE % (test code=LY%) 13.5 % 25.0-55.0 MONOCYTE % (test code=MO%) 9.4 % 0.0-10.0 EOSINOPHIL % (test code=EO%) 0.6 % 0.0-5.0 BASOPHIL % (test code=BA%) 0.4 % 0.0-1.0 NUCLEATED RBC % (test code=NRBC%) 0.0 % 0-0 NEUTROPHIL # (test code=NT#) 6.47 K/mm3 1.8-7.7 IMMATURE GRANULOCYTE # (test code=IG#) 0.03 x10 3/uL 0-0.03 LYMPHOCYTE # (test code=LY#) 1.15 K/mm3 1.0-5.0 MONOCYTE # (test code=MO#) 0.80 K/mm3 0-0.8 EOSINOPHIL # (test code=EO#) 0.05 K/mm3 0.0-0.5 BASOPHIL # (test code=BA#) 0.03 K/mm3 0.0-0.2 NUCLEATED RBC # (test code=NRBC#) 0.00 K/mm3 0.0-0.1 CBC W/AUTO [id number] 04:56:00* Test Item Value Reference Range Comments WHITE BLOOD CELL (test code=WBC) K/mm3 4.5-12.5 RED BLOOD CELL (test code=RBC) mill/mm3 3.7-5.2 HEMOGLOBIN (test code=HGB) 12.0 gram/dL 11.5-15.5 HEMATOCRIT (test code=HCT) 39.0 % 36.0-46.0 MEAN CELL VOLUME (test code=MCV) fL 80-98 MEAN CELL HGB (test code=MCH) picogram 27.0-33.0 MEAN CELL HGB CONCETRATION (test code=MCHC) gram/dL 33.0-36.0 RED CELL DISTRIBUTION WIDTH (test code=RDW) % 11.6-16.2 RED CELL DISTRIBUTION WIDTH SD (test code=RDW-SD) fL 37.0-51.0 PLATELET COUNT (test code=PLT) K/mm3 150-450 MEAN PLATELET VOLUME (test code=MPV) fL 6.7-11.0 NEUTROPHIL % (test code=NT%) % 39.0-69.0 IMMATURE GRANULOCYTE % (test code=IG%) % 0.0-5.0 LYMPHOCYTE % (test code=LY%) % 25.0-55.0 MONOCYTE % (test code=MO%) % 0.0-10.0 EOSINOPHIL % (test code=EO%) % 0.0-5.0 BASOPHIL % (test code=BA%) % 0.0-1.0 NEUTROPHIL # (test code=NT#) K/mm3 1.8-7.7 LYMPHOCYTE # (test code=LY#) K/mm3 1.0-5.0 MONOCYTE # (test code=MO#) K/mm3 0-0.8 EOSINOPHIL # (test code=EO#) K/mm3 0.0-0.5 BASOPHIL # (test code=BA#) K/mm3 0.0-0.2 B-TYPE NATRIURETIC [id number] 14:02:00* Test Item Value Reference Range Comments B-TYPE NATRIURETIC PEPTIDE (test code=BNP) 320.88 pgram/mL 0-100 COMPREHENSIVE METABOLIC [id number] 13:49:00* Test Item Value Reference Range Comments SODIUM (test code=NA) 142 mmol/L 136-145 POTASSIUM (test code=K) 3.8 mmol/L 3.5-5.1 CHLORIDE (test code=CL) 109.0 mmol/L 98-107 CARBON DIOXIDE (test code=CO2) 28.0 mmol/L 21-32 ANION GAP (test code=GAP) 8.8 10-20 GLUCOSE (test code=GLU) 91 mg/dL 74-106 BLOOD UREA NITROGEN (test code=BUN) 15 mg/dL 7-18 GLOMERULAR FILTRATION RATE (test code=GFR) 53 mL/min >=60 Estimated GFR by using Modified MDRD formula.Chronic kidney disease is defined as either kidney damageor GFR <60 mL/min/1.73 m2 for >3 months. CREATININE (test code=CREAT) 1.00 mg/dL 0.55-1.02 Note change in reference range due to change in reagent. BUN/CREATININE RATIO (test code=BUN/CREA) 15.0 10-20 TOTAL PROTEIN (test code=PROT) 6.4 gram/dL 6.4-8.2 ALBUMIN (test code=ALB) 3.3 g/dL 3.4-5.0 GLOBULIN (test code=GLOB) 3.1 gram/dL 2.7-4.2 ALBUMIN/GLOBULIN RATIO (test code=A/G) 1.1 0.75-1.50 CALCIUM (test code=CA) 8.7 mg/dL 8.5-10.1 BILIRUBIN TOTAL (test code=BILT) 1.30 mg/dL 0.0-1.0 SGOT/AST (test code=AST) 23 IUnit/L 15-37 SGPT/ALT (test code=ALT) 18 IUnit/L 12-78 ALKALINE PHOSPHATASE TOTAL (test code=ALKP) 75 IUnit/L 45-117 Note change in reference range due to change in reagent. COMPREHENSIVE METABOLIC [id number] 13:30:00* Test Item Value Reference Range Comments SODIUM (test code=NA) 142 mmol/L 136-145 POTASSIUM (test code=K) 3.8 mmol/L 3.5-5.1 CHLORIDE (test code=CL) 109.0 mmol/L 98-107 CARBON DIOXIDE (test code=CO2) mmol/L 21-32 ANION GAP (test code=GAP) 10-20 GLUCOSE (test code=GLU) mg/dL 74-106 BLOOD UREA NITROGEN (test code=BUN) mg/dL 7-18 GLOMERULAR FILTRATION RATE (test code=GFR) mL/min >=60 CREATININE (test code=CREAT) mg/dL 0.55-1.02 BUN/CREATININE RATIO (test code=BUN/CREA) 10-20 TOTAL PROTEIN (test code=PROT) gram/dL 6.4-8.2 ALBUMIN (test code=ALB) g/dL 3.4-5.0 GLOBULIN (test code=GLOB) gram/dL 2.7-4.2 ALBUMIN/GLOBULIN RATIO (test code=A/G) 0.75-1.50 CALCIUM (test code=CA) mg/dL 8.5-10.1 BILIRUBIN TOTAL (test code=BILT) mg/dL 0.0-1.0 SGOT/AST (test code=AST) IUnit/L 15-37 SGPT/ALT (test code=ALT) IUnit/L 12-78 ALKALINE PHOSPHATASE TOTAL (test code=ALKP) IUnit/L 45-117 CBC W/AUTO [id number] 13:23:00* Test Item Value Reference Range Comments WHITE BLOOD CELL (test code=WBC) 11.3 K/mm3 4.5-12.5 RED BLOOD CELL (test code=RBC) 4.31 mill/mm3 3.7-5.2 HEMOGLOBIN (test code=HGB) 13.4 gram/dL 11.5-15.5 HEMATOCRIT (test code=HCT) 41.2 % 36.0-46.0 MEAN CELL VOLUME (test code=MCV) 95.6 fL 80-98 MEAN CELL HGB (test code=MCH) 31.1 picogram 27.0-33.0 MEAN CELL HGB CONCETRATION (test code=MCHC) 32.5 gram/dL 33.0-36.0 RED CELL DISTRIBUTION WIDTH (test code=RDW) 13.2 % 11.6-16.2 RED CELL DISTRIBUTION WIDTH SD (test code=RDW-SD) 47.0 fL 37.0-51.0 PLATELET COUNT (test code=PLT) 173 K/mm3 150-450 MEAN PLATELET VOLUME (test code=MPV) 10.5 fL 6.7-11.0 NEUTROPHIL % (test code=NT%) 78.5 % 39.0-69.0 IMMATURE GRANULOCYTE % (test code=IG%) 0.4 % 0.0-5.0 LYMPHOCYTE % (test code=LY%) 13.4 % 25.0-55.0 MONOCYTE % (test code=MO%) 7.2 % 0.0-10.0 EOSINOPHIL % (test code=EO%) 0.3 % 0.0-5.0 BASOPHIL % (test code=BA%) 0.2 % 0.0-1.0 NUCLEATED RBC % (test code=NRBC%) 0.0 % 0-0 NEUTROPHIL # (test code=NT#) 8.87 K/mm3 1.8-7.7 IMMATURE GRANULOCYTE # (test code=IG#) 0.05 x10 3/uL 0-0.03 LYMPHOCYTE # (test code=LY#) 1.51 K/mm3 1.0-5.0 MONOCYTE # (test code=MO#) 0.81 K/mm3 0-0.8 EOSINOPHIL # (test code=EO#) 0.03 K/mm3 0.0-0.5 BASOPHIL # (test code=BA#) 0.02 K/mm3 0.0-0.2 NUCLEATED RBC # (test code=NRBC#) 0.00 K/mm3 0.0-0.1 MANUAL DIFF REQUIRED (test code=MDIFF) NO CBC W/AUTO [id number] 13:14:00* Test Item Value Reference Range Comments WHITE BLOOD CELL (test code=WBC) K/mm3 4.5-12.5 RED BLOOD CELL (test code=RBC) mill/mm3 3.7-5.2 HEMOGLOBIN (test code=HGB) 13.4 gram/dL 11.5-15.5 HEMATOCRIT (test code=HCT) 41.2 % 36.0-46.0 MEAN CELL VOLUME (test code=MCV) fL 80-98 MEAN CELL HGB (test code=MCH) picogram 27.0-33.0 MEAN CELL HGB CONCETRATION (test code=MCHC) gram/dL 33.0-36.0 RED CELL DISTRIBUTION WIDTH (test code=RDW) % 11.6-16.2 RED CELL DISTRIBUTION WIDTH SD (test code=RDW-SD) fL 37.0-51.0 PLATELET COUNT (test code=PLT) K/mm3 150-450 MEAN PLATELET VOLUME (test code=MPV) fL 6.7-11.0 NEUTROPHIL % (test code=NT%) % 39.0-69.0 IMMATURE GRANULOCYTE % (test code=IG%) % 0.0-5.0 LYMPHOCYTE % (test code=LY%) % 25.0-55.0 MONOCYTE % (test code=MO%) % 0.0-10.0 EOSINOPHIL % (test code=EO%) % 0.0-5.0 BASOPHIL % (test code=BA%) % 0.0-1.0 NEUTROPHIL # (test code=NT#) K/mm3 1.8-7.7 LYMPHOCYTE # (test code=LY#) K/mm3 1.0-5.0 MONOCYTE # (test code=MO#) K/mm3 0-0.8 EOSINOPHIL # (test code=EO#) K/mm3 0.0-0.5 BASOPHIL # (test code=BA#) K/mm3 0.0-0.2 COMPREHENSIVE METABOLIC [id number] 12:01:00* Test Item Value Reference Range Comments SODIUM (test code=NA) 142 mmol/L 136-145 POTASSIUM (test code=K) 3.9 mmol/L 3.5-5.1 CHLORIDE (test code=CL) 107.0 mmol/L 98-107 CARBON DIOXIDE (test code=CO2) 28.0 mmol/L 21-32 ANION GAP (test code=GAP) 10.9 10-20 GLUCOSE (test code=GLU) 106 mg/dL 74-106 BLOOD UREA NITROGEN (test code=BUN) 18 mg/dL 7-18 GLOMERULAR FILTRATION RATE (test code=GFR) 48 mL/min >=60 Estimated GFR by using Modified MDRD formula.Chronic kidney disease is defined as either kidney damageor GFR <60 mL/min/1.73 m2 for >3 months. CREATININE (test code=CREAT) 1.10 mg/dL 0.55-1.02 Note change in reference range due to change in reagent. BUN/CREATININE RATIO (test code=BUN/CREA) 16.4 10-20 TOTAL PROTEIN (test code=PROT) 7.3 gram/dL 6.4-8.2 ALBUMIN (test code=ALB) 3.7 g/dL 3.4-5.0 GLOBULIN (test code=GLOB) 3.6 gram/dL 2.7-4.2 ALBUMIN/GLOBULIN RATIO (test code=A/G) 1.0 0.75-1.50 CALCIUM (test code=CA) 9.3 mg/dL 8.5-10.1 BILIRUBIN TOTAL (test code=BILT) 1.40 mg/dL 0.0-1.0 SGOT/AST (test code=AST) 13 IUnit/L 15-37 SGPT/ALT (test code=ALT) 17 IUnit/L 12-78 ALKALINE PHOSPHATASE TOTAL (test code=ALKP) 86 IUnit/L 45-117 Note change in reference range due to change in reagent. COMPREHENSIVE METABOLIC [id number] 11:54:00* Test Item Value Reference Range Comments SODIUM (test code=NA) 142 mmol/L 136-145 POTASSIUM (test code=K) 3.9 mmol/L 3.5-5.1 CHLORIDE (test code=CL) 107.0 mmol/L 98-107 CARBON DIOXIDE (test code=CO2) mmol/L 21-32 ANION GAP (test code=GAP) 10-20 GLUCOSE (test code=GLU) mg/dL 74-106 BLOOD UREA NITROGEN (test code=BUN) mg/dL 7-18 GLOMERULAR FILTRATION RATE (test code=GFR) mL/min >=60 CREATININE (test code=CREAT) mg/dL 0.55-1.02 BUN/CREATININE RATIO (test code=BUN/CREA) 10-20 TOTAL PROTEIN (test code=PROT) gram/dL 6.4-8.2 ALBUMIN (test code=ALB) g/dL 3.4-5.0 GLOBULIN (test code=GLOB) gram/dL 2.7-4.2 ALBUMIN/GLOBULIN RATIO (test code=A/G) 0.75-1.50 CALCIUM (test code=CA) mg/dL 8.5-10.1 BILIRUBIN TOTAL (test code=BILT) mg/dL 0.0-1.0 SGOT/AST (test code=AST) IUnit/L 15-37 SGPT/ALT (test code=ALT) IUnit/L 12-78 ALKALINE PHOSPHATASE TOTAL (test code=ALKP) IUnit/L 45-117 PROTHROMBIN [id number] 11:24:00* Test Item Value Reference Range Comments PROTHROMBIN TIME PATIENT (test code=PTP) 13.5 seconds 9.0-14.0 INTERNATIONAL NORMAL RATIO (test code=INR) 1.2 0.8-1.2 The therapeutic range for oral anticoagulant therapy formost indications is an international normalized ratio (INR)of between 2.0 and 3.0. The recommended therapeutic INRrange for various clinical situations is listed below: Clinical Situation INR range Pulmonary e mbolism treatment (2.0-3.0)Venous thrombosis treatmentVenous thrombosis prophylaxis (high risk surgery)Prevention of systemic embolism from: Acute myocardial infarction Valvular heart disease Atrial fibrillation Mechanical prosthetic heart valves (2.5-3.5) THROMBOPLASTIN TIME [id number] 11:24:00* Test Item Value Reference Range Comments THROMBOPLASTIN TIME PARTIAL (test code=PTT) 36.2 seconds 25.0-36.5 - XR CHEST 2 [id number] 10:53:00 FAX: Callum Solorio [phone] [place]: O St: PRE FAX: Candi West MD [phone] FAX: Lamine Hernandez MD [phone] Name: JONAS AMOS [facility] : 1940 Age/S: 78/F [address] [facility] Unit #: [id number] Loc: [place] [address] Phys: Candi Shepard MD Acct: [id number] Dis Date: Status: PRE SDC PH ONE #: [phone] Exam Date: 03/05/2019 1010 FAX #: [phone] Reason: PRE OP EXAMS: CPT CODE: [id number] XR CHEST 2 V 24348 HISTORY: Preop. COMPARISON: Chest x-ray from October 10, 2017. AP and lateral view of the chest: No acute infiltrates, effusion or congestion. Cardiac silhouette is moderately enlarged. Patient is post med ariel sternotomy. Pedicular screws in the lower dorsal and upper lumbar spin e IMPRESSION: No acute infiltrates, effusion o r congestion. 19 at 1053 Reported and signed by: Clint Wu M.D. CC: Callum Villatoro MD; Candi Shepard MD; Ab wes Lackey Technologist: RT Marmolejo (R) Trnscrd Nory ate/Time/By: 03/05/2019 (9428) : By: [email or web address] Orig Print D/T: S: 02/19 (4235) PAGE 1 Signed Repor niko FERNANDEZ W/AUTO [id number] 10:28:00* Test Item Value Reference Range Comments WHITE BLOOD CELL (test code=WBC) 8.5 K/mm3 4.5-12.5 RED BLOOD CELL (test code=RBC) 5.10 mill/mm3 3.7-5.2 HEMOGLOBIN (test code=HGB) 15.2 gram/dL 11.5-15.5 HEMATOCRIT (test code=HCT) 48.6 % 36.0-46.0 MEAN CELL VOLUME (test code=MCV) 95.3 fL 80-98 MEAN CELL HGB (test code=MCH) 29.8 picogram 27.0-33.0 MEAN CELL HGB CONCETRATION (test code=MCHC) 31.3 gram/dL 33.0-36.0 RED CELL DISTRIBUTION WIDTH (test code=RDW) 13.2 % 11.6-16.2 RED CELL DISTRIBUTION WIDTH SD (test code=RDW-SD) 46.5 fL 37.0-51.0 PLATELET COUNT (test code=PLT) 207 K/mm3 150-450 MEAN PLATELET VOLUME (test code=MPV) 10.3 fL 6.7-11.0 NEUTROPHIL % (test code=NT%) 64.0 % 39.0-69.0 IMMATURE GRANULOCYTE % (test code=IG%) 0.5 % 0.0-5.0 LYMPHOCYTE % (test code=LY%) 26.6 % 25.0-55.0 MONOCYTE % (test code=MO%) 7.4 % 0.0-10.0 EOSINOPHIL % (test code=EO%) 0.9 % 0.0-5.0 BASOPHIL % (test code=BA%) 0.6 % 0.0-1.0 NUCLEATED RBC % (test code=NRBC%) 0.0 % 0-0 NEUTROPHIL # (test code=NT#) 5.47 K/mm3 1.8-7.7 IMMATURE GRANULOCYTE # (test code=IG#) 0.04 x10 3/uL 0-0.03 LYMPHOCYTE # (test code=LY#) 2.27 K/mm3 1.0-5.0 MONOCYTE # (test code=MO#) 0.63 K/mm3 0-0.8 EOSINOPHIL # (test code=EO#) 0.08 K/mm3 0.0-0.5 BASOPHIL # (test code=BA#) 0.05 K/mm3 0.0-0.2 NUCLEATED RBC # (test code=NRBC#) 0.00 K/mm3 0.0-0.1 MANUAL DIFF REQUIRED (test code=MDIFF) NO CBC W/AUTO [id number] 10:27:00* Test Item Value Reference Range Comments WHITE BLOOD CELL (test code=WBC) K/mm3 4.5-12.5 RED BLOOD CELL (test code=RBC) mill/mm3 3.7-5.2 HEMOGLOBIN (test code=HGB) 15.2 gram/dL 11.5-15.5 HEMATOCRIT (test code=HCT) % 36.0-46.0 MEAN CELL VOLUME (test code=MCV) fL 80-98 MEAN CELL HGB (test code=MCH) picogram 27.0-33.0 MEAN CELL HGB CONCETRATION (test code=MCHC) gram/dL 33.0-36.0 RED CELL DISTRIBUTION WIDTH (test code=RDW) % 11.6-16.2 RED CELL DISTRIBUTION WIDTH SD (test code=RDW-SD) fL 37.0-51.0 PLATELET COUNT (test code=PLT) K/mm3 150-450 MEAN PLATELET VOLUME (test code=MPV) fL 6.7-11.0 NEUTROPHIL % (test code=NT%) % 39.0-69.0 IMMATURE GRANULOCYTE % (test code=IG%) % 0.0-5.0 LYMPHOCYTE % (test code=LY%) % 25.0-55.0 MONOCYTE % (test code=MO%) % 0.0-10.0 EOSINOPHIL % (test code=EO%) % 0.0-5.0 BASOPHIL % (test code=BA%) % 0.0-1.0 NEUTROPHIL # (test code=NT#) K/mm3 1.8-7.7 LYMPHOCYTE # (test code=LY#) K/mm3 1.0-5.0 MONOCYTE # (test code=MO#) K/mm3 0-0.8 EOSINOPHIL # (test code=EO#) K/mm3 0.0-0.5 BASOPHIL # (test code=BA#) K/mm3 0.0-0.2 [id number] 07:48:00* Test Item Value Reference Range Comments GLYCOSYLATED HEMOGLOBIN (HA1C) (test code=GLYHGB) 6.0 % HbA1 4.8-6.0 ESTIMATED AVERAGE GLUCOSE (test code=EAG) 126 MG/DL COMPREHENSIVE METABOLIC [id number] 07:19:00* Test Item Value Reference Range Comments SODIUM (test code=NA) 143 mmol/L 136-145 POTASSIUM (test code=K) 4.3 mmol/L 3.5-5.1 CHLORIDE (test code=CL) 107.0 mmol/L 98-107 CARBON DIOXIDE (test code=CO2) 29.0 mmol/L 21-32 ANION GAP (test code=GAP) 11.3 10-20 GLUCOSE (test code=GLU) 93 mg/dL 74-106 BLOOD UREA NITROGEN (test code=BUN) 19 mg/dL 7-18 GLOMERULAR FILTRATION RATE (test code=GFR) 53 mL/min >=60 Estimated GFR by using Modified MDRD formula.Chronic kidney disease is defined as either kidney damageor GFR <60 mL/min/1.73 m2 for >3 months. CREATININE (test code=CREAT) 1.00 mg/dL 0.55-1.02 Note change in reference range due to change in reagent. BUN/CREATININE RATIO (test code=BUN/CREA) 18.8 10-20 TOTAL PROTEIN (test code=PROT) 6.2 gram/dL 6.4-8.2 ALBUMIN (test code=ALB) 3.0 g/dL 3.4-5.0 GLOBULIN (test code=GLOB) 3.2 gram/dL 2.7-4.2 ALBUMIN/GLOBULIN RATIO (test code=A/G) 0.9 0.75-1.50 CALCIUM (test code=CA) 8.6 mg/dL 8.5-10.1 BILIRUBIN TOTAL (test code=BILT) 1.10 mg/dL 0.0-1.0 SGOT/AST (test code=AST) 14 IUnit/L 15-37 SGPT/ALT (test code=ALT) 16 IUnit/L 12-78 ALKALINE PHOSPHATASE TOTAL (test code=ALKP) 68 IUnit/L 45-117 Note change in reference range due to change in reagent. LIPID PROFILE (CORONARY RISK)2019-01-05 07:19:00* Test Item Value Reference Range Comments TRIGLYCERIDES (test code=TRIG) 250 mg/dL 20-150 CHOLESTEROL (test code=CHOL) 245 mg/dL 0-200 CHOLESTEROL/HDL RATIO (test code=CHOLHDL) 5.0 RATIO 0-4.9 RISK ASSOCIATED WITH CHOL/HDL RATIOS: Risk Male Female1/2 AVERAGE 3.43 3.27AVERAGE 4.97 4.442X AVERAGE 9.55 7.053X AVERAGE 23.39 11.04 REFERENCE VALUE IS RELATED TO RISK LEVELS ASRECOMMENDED BY THE J[facility]. HEART, LUNG, AND BLOOD INST. HDL CHOLESTEROL (test code=HDL) 41 mg/dL 40-60 LIPOPROTEIN LDL (test code=LDL) 168 mg/dL 100-129 RN PERSONNEL, CONTACT PHYSICIAN IMMEDIATELY IF THIS IS A STROKE, AMI OR CAROTID STENOSIS PATIENT WHEN THE LDL >100 (1ST OCCURENCE, THIS ADMISSION) Reference Interval: mg/dL mmol/L Optimal <100 <2.6Near/above optimal 100-129 2.6- 3.3Borderline High 130-159 3.4-4.1High 160-189 4.1-4.9Very High >=190 >=4.9=========This LDL result is a direct measurement.========= CBC W/AUTO [id number] 07:12:00* Test Item Value Reference Range Comments WHITE BLOOD CELL (test code=WBC) 6.3 K/mm3 4.5-12.5 RED BLOOD CELL (test code=RBC) 4.65 mill/mm3 3.7-5.2 HEMOGLOBIN (test code=HGB) 13.9 gram/dL 11.5-15.5 HEMATOCRIT (test code=HCT) 43.1 % 36.0-46.0 MEAN CELL VOLUME (test code=MCV) 92.7 fL 80-98 MEAN CELL HGB (test code=MCH) 29.9 picogram 27.0-33.0 MEAN CELL HGB CONCETRATION (test code=MCHC) 32.3 gram/dL 33.0-36.0 RED CELL DISTRIBUTION WIDTH (test code=RDW) 13.5 % 11.6-16.2 RED CELL DISTRIBUTION WIDTH SD (test code=RDW-SD) 45.4 fL 37.0-51.0 PLATELET COUNT (test code=PLT) 175 K/mm3 150-450 MEAN PLATELET VOLUME (test code=MPV) 10.1 fL 6.7-11.0 NEUTROPHIL % (test code=NT%) 57.7 % 39.0-69.0 IMMATURE GRANULOCYTE % (test code=IG%) 0.5 % 0.0-5.0 LYMPHOCYTE % (test code=LY%) 30.6 % 25.0-55.0 MONOCYTE % (test code=MO%) 9.8 % 0.0-10.0 EOSINOPHIL % (test code=EO%) 0.9 % 0.0-5.0 BASOPHIL % (test code=BA%) 0.5 % 0.0-1.0 NUCLEATED RBC % (test code=NRBC%) 0.0 % 0-0 NEUTROPHIL # (test code=NT#) 3.65 K/mm3 1.8-7.7 IMMATURE GRANULOCYTE # (test code=IG#) 0.03 x10 3/uL 0-0.03 LYMPHOCYTE # (test code=LY#) 1.94 K/mm3 1.0-5.0 MONOCYTE # (test code=MO#) 0.62 K/mm3 0-0.8 EOSINOPHIL # (test code=EO#) 0.06 K/mm3 0.0-0.5 BASOPHIL # (test code=BA#) 0.03 K/mm3 0.0-0.2 NUCLEATED RBC # (test code=NRBC#) 0.00 K/mm3 0.0-0.1 MANUAL DIFF REQUIRED (test code=MDIFF) NO LIPID PROFILE (CORONARY RISK)2019-01-04 12:12:00* Test Item Value Reference Range Comments TRIGLYCERIDES (test code=TRIG) 69 mg/dL 20-150 CHOLESTEROL (test code=CHOL) 158 mg/dL 0-200 CHOLESTEROL/HDL RATIO (test code=CHOLHDL) 6.0 RATIO 0-4.9 RISK ASSOCIATED WITH CHOL/HDL RATIOS: Risk Male Female1/2 AVERAGE 3.43 3.27AVERAGE 4.97 4.442X AVERAGE 9.55 7.053X AVERAGE 23.39 11.04 REFERENCE VALUE IS RELATED TO RISK LEVELS ASRECOMMENDED BY THE [facility]. HEART, LUNG, AND BLOOD INST. HDL CHOLESTEROL (test code=HDL) 26 mg/dL 40-60 LIPOPROTEIN LDL (test code=LDL) 124 mg/dL 100-129 RN PERSONNEL, CONTACT PHYSICIAN IMMEDIATELY IF THIS IS A STROKE, AMI OR CAROTID STENOSIS PATIENT WHEN THE LDL >100 (1ST OCCURENCE, THIS ADMISSION) Reference Interval: mg/dL mmol/L Optimal <100 <2.6Near/above optimal 100-129 2.6- 3.3Borderline High 130-159 3.4-4.1High 160-189 4.1-4.9Very High >=190 >=4.9=========This LDL result is a direct measurement.========= SPECIMEN COMMENTS: add to labsTHYROID STIMULATING [id number] 19:33:00* Test Item Value Reference Range Comments THYROID STIMULATING HORMONE (test code=TSH) 2.700 uIU/mL 0.36-3.74 TSH REFERENCE RANGES: EUTHYROID: 0.35 - 4.3 mIU/mL HYPO : > 5.5 mIU/mL HYPER : < 0.35 mIU/mL [id number] 17:27:00* Test Item Value Reference Range Comments TROPONIN-I (test code=TROPI) <0.015 ng/mL 0-0.045 COMMENTS TO BOX INSPECTOR: COLLECT 3 HOURS AFTER PREVIOUS [id number] 14:15:00* Test Item Value Reference Range Comments TROPONIN-I (test code=TROPI) <0.015 ng/mL 0-0.045 COMMENTS TO BOX INSPECTOR: COLLECT 3 HOURS AFTER PREVIOUS SAMPLEURINALYSIS [id number] 11:15:00* Test Item Value Reference Range Comments UA COLOR (test code=COLU) STRAW YELLOW UA APPEARANCE (test code=APPU) CLEAR CLEAR UA GLUCOSE DIPSTICK (test code=DGLUU) NEGATIVE mg/dL NEGATIVE UA BILIRUBIN DIPSTICK (test code=BILU) NEGATIVE mg/dL NEGATIVE UA KETONE DIPSTICK (test code=KETU) Negative mg/dL NEGATIVE UA SPECIFIC GRAVITY (test code=SGU) 1.008 1.001-1.035 UA BLOOD DIPSTICK (test code=CARLTON) Negative NEGATIVE UA PH DIPSTICK (test code=JEREMY) 7.0 5.0-8.0 UA PROTEIN DIPSTICK (test code=PROU) Negative mg/dL NEGATIVE UA UROBILINIOGEN DIPSTICK (test code=URO) NEGATIVE mg/dL NEGATIVE UA NITRITE DIPSTICK (test code=SHALINI) NEGATIVE NEGATIVE UA LEUKOCYTE ESTERASE W REFLEX (test code=LEUUR) NEGATIVE NEGATIVE UA WBC (test code=WBCU) 0-5 #/HPF 0-5 UA RBC (test code=RBCU) 0-2 #/HPF 0-5 UA EPITHELIAL CELLS (test code=EPIU) FEW per HPF FEW UA MUCUS (test code=MUCU) FEW #/LPF FEW Urine Source? Clean CatchBASIC METABOLIC [id number] 09:57:00* Test Item Value Reference Range Comments SODIUM (test code=NA) 140 mmol/L 136-145 POTASSIUM (test code=K) 3.4 mmol/L 3.5-5.1 CHLORIDE (test code=CL) 104.0 mmol/L 98-107 CARBON DIOXIDE (test code=CO2) 29.0 mmol/L 21-32 ANION GAP (test code=GAP) 10.4 10-20 GLUCOSE (test code=GLU) 100 mg/dL 74-106 BLOOD UREA NITROGEN (test code=BUN) 24 mg/dL 7-18 GLOMERULAR FILTRATION RATE (test code=GFR) 53 mL/min >=60 Estimated GFR by using Modified MDRD formula.Chronic kidney disease is defined as either kidney damageor GFR <60 mL/min/1.73 m2 for >3 months. CREATININE (test code=CREAT) 1.00 mg/dL 0.55-1.02 Note change in reference range due to change in reagent. BUN/CREATININE RATIO (test code=BUN/CREA) 23.8 10-20 CALCIUM (test code=CA) 8.6 mg/dL 8.5-10.1 [id number] 09:57:00* Test Item Value Reference Range Comments TROPONIN-I (test code=TROPI) <0.015 ng/mL 0-0.045 BASIC METABOLIC [id number] 09:46:00* Test Item Value Reference Range Comments SODIUM (test code=NA) 140 mmol/L 136-145 POTASSIUM (test code=K) 3.4 mmol/L 3.5-5.1 CHLORIDE (test code=CL) 104.0 mmol/L 98-107 CARBON DIOXIDE (test code=CO2) mmol/L 21-32 ANION GAP (test code=GAP) 10-20 GLUCOSE (test code=GLU) mg/dL 74-106 BLOOD UREA NITROGEN (test code=BUN) mg/dL 7-18 GLOMERULAR FILTRATION RATE (test code=GFR) mL/min >=60 CREATININE (test code=CREAT) mg/dL 0.55-1.02 BUN/CREATININE RATIO (test code=BUN/CREA) 10-20 CALCIUM (test code=CA) mg/dL 8.5-10.1 [id number] 09:46:00* Test Item Value Reference Range Comments TROPONIN-I (test code=TROPI) ng/mL 0-0.045 PROTHROMBIN [id number] 09:32:00* Test Item Value Reference Range Comments PROTHROMBIN TIME PATIENT (test code=PTP) 10.2 seconds 9.0-14.0 INTERNATIONAL NORMAL RATIO (test code=INR) 0.8 0.8-1.2 The therapeutic range for oral anticoagulant therapy formost indications is an international normalized ratio (INR)of between 2.0 and 3.0. The recommended therapeutic INRrange for various clinical situations is listed below: Clinical Situation INR range Pulmonary e mbolism treatment (2.0-3.0)Venous thrombosis treatmentVenous thrombosis prophylaxis (high risk surgery)Prevention of systemic embolism from: Acute myocardial infarction Valvular heart disease Atrial fibrillation Mechanical prosthetic heart valves (2.5-3.5) IS PATIENT ON ANTICOAGULANTS? NTHROMBOPLASTIN TIME [id number] 09:32:00* Test Item Value Reference Range Comments THROMBOPLASTIN TIME PARTIAL (test code=PTT) 27.5 seconds 25.0-36.5 IS PATIENT ON ANTICOAGULANTS? NCBC W/O [id number] 09:22:00* Test Item Value Reference Range Comments WHITE BLOOD CELL (test code=WBC) 6.8 K/mm3 4.5-12.5 RED BLOOD CELL (test code=RBC) 4.76 mill/mm3 3.7-5.2 HEMOGLOBIN (test code=HGB) 14.4 gram/dL 11.5-15.5 HEMATOCRIT (test code=HCT) 43.8 % 36.0-46.0 MEAN CELL VOLUME (test code=MCV) 92.0 fL 80-98 MEAN CELL HGB (test code=MCH) 30.3 picogram 27.0-33.0 MEAN CELL HGB CONCETRATION (test code=MCHC) 32.9 gram/dL 33.0-36.0 RED CELL DISTRIBUTION WIDTH (test code=RDW) 13.3 % 11.6-16.2 PLATELET COUNT (test code=PLT) 176 K/mm3 150-450 MEAN PLATELET VOLUME (test code=MPV) 10.2 fL 6.7-11.0 CBC W/O [id number] 09:21:00* Test Item Value Reference Range Comments WHITE BLOOD CELL (test code=WBC) K/mm3 4.5-12.5 RED BLOOD CELL (test code=RBC) mill/mm3 3.7-5.2 HEMOGLOBIN (test code=HGB) 14.4 gram/dL 11.5-15.5 HEMATOCRIT (test code=HCT) 43.8 % 36.0-46.0 MEAN CELL VOLUME (test code=MCV) fL 80-98 MEAN CELL HGB (test code=MCH) picogram 27.0-33.0 MEAN CELL HGB CONCETRATION (test code=MCHC) gram/dL 33.0-36.0 RED CELL DISTRIBUTION WIDTH (test code=RDW) % 11.6-16.2 PLATELET COUNT (test code=PLT) K/mm3 150-450 MEAN PLATELET VOLUME (test code=MPV) fL 6.7-11.0 - CT HEAD/BRAIN W/O [id number] 08:22:00 Name: JONAS AMOS [facility] : 1940 Age/S: 78 / F [address] [facility] Unit #: [id number] Loc: [facility] [place] [id number] Phys: Jared Rice MD Acct: [id number] Dis Date: Status: REG ER PHONE #: [phone] Exam Date: 01/03/2019 0810 FAX #: [phone] Reason: vertigo EXAMS: CPT CODE: [id number] CT HEAD/BRAIN W/O CONT [id number] HISTORY: Vertigo. COMPARISON: Head CT from October 10, 2017. CT brain without contrast: Automated exposure control. Note: Posterior fossa is obscured by beam hardening artifact from patient's dental work. No acute intracranial bleeds or extra-axial collections are noted. No acute territorial vascular infarction is noted. The sulci, gyri, ve ntricles and subarachnoid spaces and the basilar cisterns are normal for p atient's age. No herniation or hydrocephalus or midline shift is noted. Mild periventricular ischemic gliosis is noted. Age-appropriate atrophy is noted as well. Portions of the visualized paranasal s inuses are normal. No obvious bony calvarial defect is noted. IMPRESSION: No acute intracranial bleeds or extra- axial collections. No acute territorial vascular infarction. No herniation or hydrocephalus or midline shift. Chronic white matter ischemic disease and atrophy . at 0822 Reported and signed by: Clint Wu M.D. CC: Jared Rice MD Technologist:Sheri Marroquin,RT(R),CT CTDI: DLP: Trnscb Date/Time: 01/03/2019 (0822) [id number] Orig Print D/T: S: 01/03/2019 (0825) CTDI: DLP: PAGE 1 Signed Report
[2019-05-15 12:45] VITALS: BP 138/92
== END | disposition home or self-care (01) ==
LOC: RAD 05:00 → OR 05-15 09:37 → EDSTATUS 05-15 12:00
PROVIDERS: ATTEND Urology
DX: Z01.818 Encounter for other preprocedural examination (principal); R31.0 Gross hematuria; Z53.8 Procedure and treatment not carried out for other reasons
CPT/HCPCS: 36415; 71046; 80048; 85025; 93005; J0360; J0696

== ENCOUNTER → 2019-06-14 | Day surgery (SDC) | payer MEDICARE, OTHER ==
[2019-06-11 12:44] LABS: BASOPHILS # (AUTO) 0.1 (0.0-0.1); BASOPHILS % 0.8 % (0.0-1.0); EOSINOPHILS # (AUTO) 0.1 (0.0-0.4); EOSINOPHILS % 1.2 % (0.0-6.0); HEMOGLOBIN 14.2 g/dL (12.0-16.0); LYMPHOCYTES # (AUTO) 1.4 (1.0-3.2); LYMPHOCYTES % 23.5 % (18.0-39.1); MEAN CORPUSCULAR HEMOGLOBIN 30.9 pg (28-32); MEAN CORPUSCULAR HGB CONC 34.6 g/dL (31-35); MEAN CORPUSCULAR VOLUME 89.3 fL (81-99); MONOCYTES # (AUTO) 0.6 (0.2-0.8); MONOCYTES % 9.3 % (4.4-11.3); NEUTROPHILS # (AUTO) 3.9 (2.1-6.9); NEUTROPHILS % 64.9 % (38.7-80.0); PLATELET COUNT 182 x10e3/uL (140-360); RED BLOOD COUNT 4.59 x10e6/uL (3.6-5.1); RED CELL DISTRIBUTION WIDTH 13.7 % (11.7-14.4)
[2019-06-11 13:05] LABS: ANION GAP 12.5 mmol/L (8-16); CALCIUM 9.9 mg/dL (8.4-10.2); CREATININE, SERUM 1.24 mg/dL (0.57-1.11); POTASSIUM 4.5 mmol/L (3.5-5.1)
[~2019-06-14] MED LIST changes: +DEXAMETHASONE SOD PHOS INJ 4 MG/ML VIAL ONE; +FENTANYL CITRATE/PF 100MCG/2 ML INJ ONE; -HYDRALAZINE HCL 20 MG/ML VIAL ONE; -IOPAMIDOL 610MG/1ML 300 MG/ML VIAL IV ONE; +LIDOCAINE HCL 2% LOCAL INJ 5 ML SDV VIAL INJ ONE; +ONDANSETRON HCL INJ 2MG/ML 2ML 2 MG/ML VIAL ONE; +PROPOFOL IV EMULSION 10 MG/ML 20 ML VIAL ONE; +SEVOFLURANE INHAL SOLN 250 ML PEN BTL ONE
--- OUTSIDE RECORDS SUMMARY | 2019-06-14 07:51 | XMS REPORT | Continuity of Care Document ---
Author Author [facility] Organization [facility] Address Unknown Phone Unavailable Care Team Providers Care Assistive Technology Trainer Name Role Phone [employer] Information [employer] Unavailable Unavailable Problems Problem Status Onset Date Classification Date Reported Comments Source STENOSIS Active 10/27/2016 [employer] BACK PAIN Active 08/10/2016 [employer] Thyroid disease Resolved 11/21/2012 Problem 08/13/2017 [facility] [place] Abnormal EKG Active Problem 05/03/2019 Candelario Shepard Swelling of lower extremity Active Problem 05/03/2019 Candelario Shepard Varicose veins of bilateral lower extremities with other complications Active Problem 05/03/2019 Candelaroi Shepard Low back pain Active Problem 05/03/2019 Candelario Shepard HENDERSON Active Problem 05/03/2019 Candelario Shepard Encounter for pre-operative cardiovascular clearance Active Problem 05/03/2019 Candelario Shepard 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, unspecified whether [place] or transplanted heart Active Problem 05/03/2019 Candelario Shepard Atherosclerosis of [place] coronary artery of [place] heart without angina pectoris Active Problem 05/03/2019 Candelario Shepard Left ventricular diastolic dysfunction with preserved systolic function Active Problem 05/03/2019 Candelario Shepard Atherosclerosis of [place] arteries of extremity with intermittent claudication Active Problem 05/03/2019 Candelario Shepard Atherosclerosis of coronary artery bypass graft without angina pectoris Active Problem 05/03/2019 Candelario Shepard Hypercholesteremia Active Problem 05/03/2019 Candelario Shepard Essential hypertension Active Problem 05/03/2019 Candelario Shepard Atherosclerosis of [place] coronary artery of [place] heart with angina pectoris Active Problem 05/03/2019 Candelario Shepard LAE Active Problem 05/03/2019 Candelario Shepard Arteriosclerosis of [...] Shepard Persistent atrial fibrillation Active Problem 05/03/2019 Candelario Shepard Status post ablation of incompetent vein using laser Active Problem 05/03/2019 Candelario Shepard Atherosclerosis of [place] arteries of the extremities with intermittent claudication Active Problem 07/30/2015 Candelario Shepard Arteriosclerosis of carotid artery Active Problem 07/30/2015 Candelario Shepard Chest Pain Active Problem 07/30/2015 Candelario Shepard Diastolic dysfunction, left ventricle Active Problem 07/30/2015 Candelario Shepard Acute mitral insufficiency Active Problem 07/30/2015 Candelario Shepard Varicose veins of lower extremities with complications Active Problem 07/30/2015 Candelario Shepard CABG Status Active Problem 07/30/2015 Candelario Shepard Atherosclerotic heart disease [place] coronary artery w/angina pectoris Active Problem 07/30/2015 Candelario Shepard Nonrheumatic tricuspid insufficiency Active Problem 07/30/2015 Candelario Shepard Coronary atherosclerosis of unspecified type of bypass graft Active Problem 07/30/2015 Candelario Shepard Abnormal EKG Active Problem 07/30/2015 Candelario Shepard Swelling of limb Active Problem 07/30/2015 Candelario Shepard PTCA Status Active Problem 07/30/2015 Candelario Shepard HTN, Benign Active Problem 07/30/2015 Candelario Shepard Atrial fibrillation Active Problem 07/30/2015 Candelario Shepard Hypercholesterolemia Active Problem 07/30/2015 Candelario Shepard Shortness of breath Active Problem 07/30/2015 Candelario Shepard Sinus Bradycardia Active Problem 07/30/2015 Candelario Shepard Angina Active Problem 07/30/2015 Candelario Shepard Nonrheumatic mitral insufficiency Active Problem 07/13/2016 Candelario Shepard Hypercholesteremia Active Problem 07/13/2016 Candelario Lynnernie Nonrheumatic tricuspid valve disorder Active Problem 07/13/2016 Candelario Lynnumawandy DDD , thoracolumbar(Confirmed) Active Problem 08/13/[facility] [place] Diverticulosis Resolved Problem 08/13/2017 [facility] [place] Stomach ulcer Active Problem 08/13/2017 [facility] [place] GERD (Confirmed) Active Problem 08/13/2017 [facility] [place] HLD (Confirmed) Active Problem 08/13/2017 [facility] [place] HTN (Confirmed) Active Problem 08/13/2017 [facility] [place] Depression (Confirmed) Active Problem 08/13/2017 [facility] [place] Neuropathy Active Problem 08/13/2017 [facility] [place] Hiatal hernia Active Problem 08/13/2017 [facility] [place] OA (Confirmed) Active Problem 08/13/2017 [facility] [place] Spinal stenosis Active Problem 08/13/2017 [facility] [place] Tingling in extremities1 Active Problem 08/13/2017 [facility] [place] Urinary incontinence in female Active Problem 08/13/2017 [facility] [place] STENOSIS OF UNSPECIFIED LACRIMAL CANALIC Active [facility] Medications Medication Details Route Status Patient Instructions [...] Weight 97.273, kg, Start date: 11/08/16 10:10:00 MIXER ATTENDANT, Stop date: 11/08/16 10:10:00 CSTNotes: (Same as: K Phosphate.) 1 mMol phoshate has 1.47 mEq potassium Infuse over 4 hours Inactive 11/08/2016 [facility] potassium chloride 40 mEq, Route: PO, Drug form: ERTAB, ONCE, Dosing Weight 97.273, kg, Start date: 11/08/16 10:09:00 MIXER ATTENDANT, Stop date: 11/08/16 10:09:00 MIXER ATTENDANT Inactive 11/08/2016 [facility] Reglan 10 mg, 2 mL, Route: IV, Drug form: INJ, ONCE, Dosing Weight 97.273, kg, Start date: 11/08/16 0:44:00 MIXER ATTENDANT, Stop date: 11/08/16 0:44:00 CSTNotes: (Same as: Reglan) Inactive 11/08/2016 [facility] Dulcolax Laxative 10 mg, 1 supp, Route: DE, Drug form: SUPP, ONCE, Dosing Weight 97.273, kg, Priority: NOW, Start date: 11/07/16 14:28:00 MIXER ATTENDANT, Stop date: 11/07/16 14:28:00 CSTNotes: (Same As: Dulcolax, B[place]- Lax) Inactive 11/07/2016 [facility] magnesium citrate 58.2 MG/ML Oral Solution 300 ml, Route: PO, Drug Form: LIQ, Dosing Weight 97.273, kg, ONCE, NOW, Start date: 11/07/16 14:28:00 MIXER ATTENDANT, Stop date: 11/07/16 14:28:00 CSTNotes: (Same as: Citrate of Magnesia) Concentration: 1.745 gm / 30 mL Inactive 11/07/2016 [facility] Calcium Gluconate 1,000 mg, 10 mL, Route: IVPB, Drug form: INJ, ONCE, Dosing Weight 97.273, kg, Start date: 11/07/16 7:53:00 MIXER ATTENDANT, Stop date: 11/07/16 7:53:00 CSTNotes: WASTE: F/P - Sink; E - Municipal Trash Bin Inactive 11/07/2016 [facility] potassium chloride 20 mEq oral tablet, extended release 20 mEq, 1 tab, Route: PO, Drug form: ERTAB, ONCE, Dosing Weight 97.273, kg, Start date: 11/07/16 7:52:00 MIXER ATTENDANT, Stop date: 11/07/16 7:52:00 CSTNotes: (Same as: K- Dur 20) "Do Not Crush" With food and full glass of water Inactive 11/07/2016 [facility] Sodium Chloride 0.154 MEQ/ML Injectable Solution 1,000 mL, 1,000 ml/hr, Infuse Over: 1 hr, Route: IV, 1,000, Drug form: INJ, ONCE, Priority: STAT, Dosing Weight 97.273 kg, Start date: 11/06/16 11:32:00 MIXER ATTENDANT, Duration: 1 doses or times, Stop date: 11/06/16 11:32:00 MIXER ATTENDANT Inactive 11/06/2016 [facility] Calcium Gluconate 1,000 mg, 10 mL, Route: IVPB, Drug form: INJ, ONCE, Dosing Weight 97.273, kg, Start date: 11/06/16 11:19:00 MIXER ATTENDANT, Stop date: 11/06/16 11:19:00 CSTNotes: WASTE: F/P - Sink; E - Municipal Trash Bin Inactive 11/06/2016 [facility] Protonix 40 mg, 1 tab, Route: PO, Drug form: ECTAB, Daily, Dosing Weight 97.273, kg, Start date: 11/06/16 9:00:00 MIXER ATTENDANT, Duration: 30 day, Stop date: 12/05/16 9:00:00 CSTNotes: Tablet should not be chewed or crushed. (Same as: Protonix) No Longer Active 11/06/2016 [facility] Hydralazine Hydrochloride 50 MG Oral Tablet 50 mg, 2 tab, Route: PO, Drug form: TAB, Daily, Dosing Weight 97.273, kg, Start date: 11/06/16 9:00:00 MIXER ATTENDANT, Duration: 30 day, Stop date: 12/05/16 9:00:00 CSTNotes: (Same as: Apresoline) May interfere w/enteral feedings Take With Food. No Longer Active 11/06/2016 [facility] ceFAZolin (SCIP) 2 gm, 100 mL, Route: IVPB, Drug form: INJ, ABXQ8H, Dosing Weight 97.273, kg, Start date: 11/05/16 17:30:00 MIXER ATTENDANT, Duration: 3 doses or times, Stop date: 11/06/16 9:30:00 CSTNotes: Same as: Ancef No Longer Active 11/05/2016 [facility] hydrochlorothiazide 25 mg oral tablet 12.5 mg, 0.5 tab, Route: PO, Drug form: TAB, QPM, Start date: 11/05/16 17:00:00 MIXER ATTENDANT, Duration: 30 day, Stop date: 12/04/16 17:00:00 CSTNotes: (Same as: Hydrodiuril) With food. No Longer Active 11/05/2016 [facility] Docusate 100 mg, 1 cap, Route: PO, Drug form: CAP, BID, Dosing Weight 96.364, kg, Start date: 11/05/16 17:00:00 MIXER ATTENDANT, Duration: 30 day, Stop date: 12/05/16 9:00:00 CSTNotes: (Same as: Colace) (Do Not Crush) No Longer Active 11/05/2016 [facility] Prinivil 10 mg, 1 tab, Route: PO, Drug form: TAB, QPM, Start date: 11/05/16 17:00:00 MIXER ATTENDANT, Duration: 30 day, Stop date: 12/04/16 17:00:00 CSTNotes: (Same as: Prinivil, Zestril) No Longer Active 11/05/2016 [facility] Docusate Sodium 100 MG Oral Capsule 100 mg, Route: PO, Drug form: CAP, BID, Dosing Weight 97.273, kg, Start date: 11/05/16 17:00:00 MIXER ATTENDANT, Duration: 30 day, Stop date: 12/05/16 9:00:00 MIXER ATTENDANT Inactive 11/05/2016 [facility] metoprolol tartrate 12.5 mg, 0.5 tab, Route: PO, Drug form: TAB, BID, Dosing Weight 97.273, kg, Start date: 11/05/16 17:00:00 MIXER ATTENDANT, Duration: 30 day, Stop date: 12/05/16 9:00:00 CSTNotes: (Same as: Lopressor) No Longer Active 11/05/2016 [facility] Hydrochlorothiazide 25 MG / Lisinopril 20 MG Oral Tablet 0.5 tab, Route: PO, Drug Form: TAB, Dosing Weight 97.273, kg, QPM, Start date: 11/05/16 17:00:00 MIXER ATTENDANT, Duration: 30 day, Stop date: 12/04/16 17:00:00 MIXER ATTENDANT Inactive 11/05/2016 [facility] Zanaflex 4 mg, 1 tab, Route: PO, Drug form: TAB, Q8H, Dosing Weight 97.273, kg, Start date: 11/05/16 16:00:00 MIXER ATTENDANT, Duration: 30 day, Stop date: 12/05/16 8:00:00 CSTNotes: (Same As: Zanaflex) No Longer Active 11/05/2016 [facility] Lactated Ringers 1,000 mL 1,000 mL, Rate: 999 ml/hr, Infuse over: 1 hr, Route: IV, Dosing Weight 97.273 kg, Total Volume: 1,000, Start date: 11/05/16 15:53:00 MIXER ATTENDANT, Duration: 1 doses or times, Stop date: 11/05/16 16:52:00 MIXER ATTENDANT Inactive 11/05/2016 [facility] Hydromorphone 15 mg, 30 mL, Route: IV, Initial Loading Dose: 0.4mg, SECURITY SYSTEM ENGINEER Dose: 0.2 mg, SECURITY SYSTEM ENGINEER Lockout: 10 minutes, Continuous Basal Rate: 0 mg, 4 Hour Limit (In MG): 6, Drug Form: INJ, Continuous, Start date: 11/05/16 12:00:00 MIXER ATTENDANT, Duration: 30 day, Stop date: 12/05/16...Notes: (Same as: Dilaudid) conc=0.5 mg/ml Hydromorphone SECURITY SYSTEM ENGINEER Dose: ;Delay: ;Basal: No Longer Active 11/05/2016 [facility] Naloxone 0.04 mg, 0.1 mL, Route: IVP, Drug form: INJ, Q2MIN, Dosing Weight 97.273, kg, PRN Narcotic Reversal, Start date: 11/05/16 11:42:00 MIXER ATTENDANT, Duration: 30 day, Stop date: 12/05/16 11:41:00 CSTNotes: Same as Narcan No Longer Active 11/05/2016 [facility] D5W 1/2NS + KCL 20mEq/L 1000ml (Premix) 1,000 mL 1,000 mL, Rate: 75 ml/hr, Infuse over: 13.3 hr, Route: IV, Dosing Weight 97.273 kg, Total Volume: 1,000, Start date: 11/05/16 11:42:00 MIXER ATTENDANT, Duration: 30 day, Stop date: 12/05/16 11:41:00 CSTNotes: PREMIX IV - Do Not Alter WASTE: F/P - Sink; E - Municipal Trash Bin No Longer Active 11/05/2016 [facility] Saline Flush 0.9% 10 ml, Route: IVP, Drug Form: INJ, Dosing Weight 97.273, kg, PRN, PRN Line Flush, Start date: 11/05/16 11:42:00 MIXER ATTENDANT, Duration: 30 day, Stop date: 12/05/16 11:41:00 CSTNotes: Same as: BD Posiflush Sterile No Longer Active 11/05/2016 [facility] Milk of Magnesia 30 ml, Route: PO, Drug Form: SUSP, Dosing Weight 97.273, kg, Daily, PRN as needed for constipation, Until bowel movement, Start date: 11/05/16 11:42:00 MIXER ATTENDANT, Duration: 30 day, Stop date: 12/05/16 11:4 1:00 CSTNotes: (Same as: Milk of Magnesia, MOM) No Longer Active 11/05/2016 [facility] Diphenhydramine 12.5 mg, 5 mL, Route: PO, Drug form: LIQ, Q6H, Dosing Weight 97.273, kg, PRN Itching, Start date: 11/05/16 11:42:00 MIXER ATTENDANT, Duration: 30 day, Stop date: 12/05/16 11:41:00 CSTNotes: (Same as: Benadryl) No Longer Active 11/05/2016 [facility] Al hydroxide/Mg hydroxide/simethicone 200 mg-200 mg-20 mg/5 mL oral suspension 30 ml, Route: PO, Drug Form: SUSP, Dosing Weight 97.273, kg, Q4H, PRN Indigestion, Start date: 11/05/16 11:42:00 MIXER ATTENDANT, Duration: 30 day, Stop date: 12/05/16 11:41:00 CSTNotes: (aluminum hydroxide-magnesium hyd- simethicone [id number]/5ml 30 ml ud MARGARITO) No Longer Active 11/05/2016 [facility] Ondansetron 4 mg, 2 mL, Route: IVP, Drug form: INJ, Q6H, Dosing Weight 97.273, kg, PRN Nausea & Vomiting, Start date: 11/05/16 11:42:00 MIXER ATTENDANT, Duration: 30 day, Stop date: 12/05/16 11:41:00 CSTNotes: (Same as: Zofran) MEDICATION WASTE Product Size: 4 mg Product Wasted: ___ mg No Longer Active 11/05/2016 [facility] Dulcolax Laxative 5 mg, 1 tab, Route: PO, Drug form: ECTAB, Q24H, Dosing Weight 97.273, kg, PRN Constipation, Start date: 11/05/16 11:42:00 MIXER ATTENDANT, Duration: 30 day, Stop date: 12/05/16 11:41:00 CSTNotes: (Same As: Dulco lax, Correctol) (Do Not Crush) "Do Not Crush" No Longer Active 11/05/2016 [facility] Acetaminophen 325 MG / Hydrocodone Bitartrate 10 MG Oral Tablet 2 tab, Route: PO, Drug Form: TAB, Dosing Weight 97.273, kg, Q4H, PRN Pain Score 4-6, Start date: 11/05/16 11:42:00 MIXER ATTENDANT, Duration: 30 day, Stop date: 12/05/16 11:41:00 CSTNotes: Do not exceed 4gm/day of acetaminophen. (Same as: [place] 325/10) No Longer Active 11/05/2016 [facility] [...] PRN Narcotic Reversal, Start date: 11/05/16 9:36:00 MIXER ATTENDANT, Duration: 8 doses or times, Stop date: Limited # of timesNotes: Same as Narcan Inactive 11/05/2016 [facility] Flumazenil 0.2 mg, 2 mL, Route: IVP, Drug form: INJ, PRN, Dosing Weight 97.273, kg, PRN Benzodiazepine Reversal, Initial dose, Start date: 11/05/16 9:36:00 MIXER ATTENDANT, Duration: 30 day, Stop date: 12/05/16 9:35:00 MIXER ATTENDANT Notes: (Same as: Romazicon) Inactive 11/05/2016 [facility] Morphine 4 mg, 0.4 mL, Route: IVP, Drug form: INJ, Q5Min, Dosing Weight 97.273, kg, PRN Pain Score 7-10, Start date: 11/05/16 9:36:00 MIXER ATTENDANT, Duration: 3 doses or times, Stop date: Limited # of timesNotes: (Same as:MORPhine Sulfate) Inactive 11/05/2016 [facility] Oxycodone 5 mg, 1 tab, Route: PO, Drug form: TAB, Q4H, Dosing Weight 97.273, kg, PRN Pain Score 4-6, Start date: 11/05/16 9:36:00 MIXER ATTENDANT, Duration: 30 day, Stop date: 12/05/16 9:35:00 CSTNotes: (Same as: Roxicodone) Inactive 11/05/2016 [facility] Fentanyl 25 microgram, 0.5 mL, Route: IVP, Drug form: INJ, Q5Min, Dosing Weight 97.273, kg, PRN Headache 4-6, Priority: Routine, Start date: 11/05/16 9:36:00 MIXER ATTENDANT, Duration: 4 doses or times, Stop date: Limited # of timesNotes: (Same as: Sublimaze) Preservative free. Inactive 11/05/2016 [facility] Labetalol 10 mg, 2 mL, Route: IVP, Drug form: INJ, Q5Min, Dosing Weight 97.273, kg, PRN Elevated BP, Start date: 11/05/16 9:36:00 MIXER ATTENDANT, Duration: 5 doses or times, Stop date: Limited # of times Inactive 11/05/2016 [facility] Acetaminophen 1,000 mg, 2 tab, Route: PO, Drug form: TAB, ONCE, Dosing Weight 97.273, kg, PRN Pain Score 1-3, Start date: 11/05/16 9:36:00 MIXER ATTENDANT, Duration: 1 doses or times, Stop date: Limited # of timesNotes: Max acetaminophen 4000 mg/day (4 gm/day). (Same as: Tylenol Extra Strength) Inactive 11/05/2016 [facility] Hydromorphone 0.5 mg, 0.25 mL, Route: IVP, Drug form: INJ, Q5Min, Dosing Weight 97.273, kg, PRN Pain Score 7-10, Start date: 11/05/16 9:36:00 MIXER ATTENDANT, Duration: 4 doses or times, Stop date: Limited # of timesNotes: Sa me as Dilaudid Inactive 11/05/2016 [facility] Lactated Ringers 1,000 mL 1,000 mL, Rate: 40 ml/hr, Infuse over: 25 hr, Route: IV, Dosing Weight 97.273 kg, Total Volume: 1,000, Start date: 11/05/16 7:28:00 MIXER ATTENDANT, Duration: 30 day, Stop date: 12/05/16 7:27:00 MIXER ATTENDANT No Longer Active 11/05/2016 [facility] Ondansetron 4 mg, 2 mL, Route: IVP, Drug form: INJ, Q6H, Dosing Weight 96.364, kg, PRN Nausea & Vomiting, Start date: 11/05/16 6:37:00 MIXER ATTENDANT, Duration: 30 day, Stop date: 12/05/16 6:36:00 CSTNotes: (Same as: Zofran) MEDICATION WASTE Product Size: 4 mg Product Wasted: ___ mg Inactive 11/05/2016 [facility] Acetaminophen 650 mg, 2 tab, Route: PO, Drug form: TAB, Q4H, Dosing Weight 96.364, kg, PRN Pain 1-3/Temp > 100.4 F, Start date: 11/05/16 6:37:00 MIXER ATTENDANT, Duration: 30 day, Stop date: 12/05/16 6:36:00 [...] Active 20-25 MG Orally Once a day Shanewandy Shepard Metoprolol Tartrate 1/2 tablet Orally Active 25 MG Orally Twice a day Shanewandy Shepard Rosuvastatin Calcium 1 tablet Orally Active 10 MG Orally Once a day Shanewandy Shepard HydrALAZINE HCl 1/2 half tablet Orally Active 50 MG Orally daily Devyn Shepard Ergocalciferol 1 capsule Orally Active 68443 UNIT Orally qweekly Devyn Shepard Clopidogrel Bisulfate TAKE 1 TABLET BY MOUTH EVERY DAY Orally Active 75 mg Orally once a day Devyn Shepard Crestor 1 tablet Orally Active 20 mg Orally Once a day Devyn Shepard Allergies, Adverse Reactions, Alerts Substance Category Reaction Severity Reaction type Status Date Reported Comments Source Zocor Adverse Reaction intolerance Adverse Reaction Active 08/16/2017 Candelario Shepard Zetia Adverse Reaction intolerance Adverse Reaction Active 08/16/2017 Candelario Shepard Pravastatin Sodium Adverse Reaction intolerance Adverse Reaction Active 08/16/2017 Candelario Shepard Naproxen Adverse Reaction ?Allergic Reaction Adverse Reaction Active 08/16/2017 Candelario Shepard Lipitor Adverse Reaction muscle cramps Adverse Reaction Active 08/16/2017 Candelario Shepard codeine Assertion Drug allergy [facility] CODEINE, AND DEMEROL Assertion Drug allergy [facility] Demerol Assertion RESPIRATORY DIFFICULTY, DIAPHORESIS Drug allergy Active [facility] [place] Betadine Assertion BURNED SKIN Severe Drug allergy Active [facility] [place] iodine topical Assertion Drug allergy Active [facility] [place] Immunizations Immunization Date Given Site Status Last Updated Comments Source Hx influenza vaccine-unspecified 07/29/2016 completed [facility] [place] Results Order Name Results Value Reference Range Date Interpretation Comments Source CHEM PANEL eGFR 63 11/08/2016 Result Comment: The eGFR is calculated [...] [facility] Spine CHEM PANEL Sodium Lvl 138 135 - 145 11/08/2016 [facility] CHEM PANEL Potassium Lvl 3.4 3.5 - 5.1 11/08/2016 [facility] CHEM PANEL Chloride Lvl 103 95 - 109 11/08/2016 [facility] CHEM PANEL CO2 31 24 - 32 11/08/2016 [facility] CHEM PANEL Calcium Lvl 8.1 8.5 - 10.5 11/08/2016 [facility] CHEM PANEL AGAP 7.4 10.0 - 20.0 11/08/2016 [facility] CHEM PANEL BUN 14 7 - 22 11/08/2016 [facility] CHEM PANEL Glucose Lvl 127 70 - 99 11/08/2016 [facility] CHEM PANEL Creatinine Lvl 0.89 0.50 - 1.40 11/08/2016 [facility] CHEM PANEL Phosphorus 2.1 2.5 - 4.5 11/08/2016 [facility] CHEM PANEL Magnesium Lvl 1.9 1.8 - 2.4 11/08/2016 [facility] HEMATOLOGY Platelet 125 133 - 450 11/08/2016 [facility] HEMATOLOGY MPV 8.5 7.4 - 10.4 11/08/2016 [facility] HEMATOLOGY MCHC 35.1 32.0 - 36.0 11/08/2016 [facility] HEMATOLOGY MCH 31.0 27.0 - 31.0 11/08/2016 [facility] HEMATOLOGY RDW 13.4 11.5 - 14.5 11/08/2016 [facility] HEMATOLOGY MCV 88.1 80.0 - 98.0 11/08/2016 [facility] HEMATOLOGY Hct 26.9 36.0 - 48.0 11/08/2016 [facility] HEMATOLOGY RBC 3.06 4.20 - 5.40 11/08/2016 [facility] HEMATOLOGY WBC 9.0 3.7 - 10.4 11/08/2016 [facility] HEMATOLOGY Hgb 9.5 12.0 - 16.0 11/08/2016 [facility] ELECTROLYTES AGAP 9.5 10.0 - 20.0 11/07/2016 [facility] ELECTROLYTES eGFR 56 11/07/2016 Result Comment: The eGFR is calculated [...] [facility] ELECTROLYTES Creatinine Lvl 0.99 0.50 - 1.40 11/07/2016 [facility] ELECTROLYTES BUN 11 7 - 22 11/07/2016 [facility] ELECTROLYTES Sodium Lvl 136 135 - 145 11/07/2016 [facility] ELECTROLYTES Glucose Lvl 114 70 - 99 11/07/2016 [facility] ELECTROLYTES Calcium Lvl 7.5 8.5 - 10.5 11/07/2016 [facility] ELECTROLYTES Potassium Lvl 3.5 3.5 - 5.1 11/07/2016 [facility] ELECTROLYTES CO2 28 24 - 32 11/07/2016 [facility] ELECTROLYTES Chloride Lvl 102 95 - 109 11/07/2016 [facility] HEMATOLOGY WBC 8.0 3.7 - 10.4 11/07/2016 [facility] HEMATOLOGY RBC 2.97 4.20 - 5.40 11/07/2016 [facility] HEMATOLOGY Hgb 9.1 12.0 - 16.0 11/07/2016 [facility] HEMATOLOGY Hct 26.3 36.0 - 48.0 11/07/2016 [facility] HEMATOLOGY MCHC 34.8 32.0 - 36.0 11/07/2016 [facility] HEMATOLOGY RDW 13.4 11.5 - 14.5 11/07/2016 [facility] HEMATOLOGY MCV 88.4 80.0 - 98.0 11/07/2016 [facility] HEMATOLOGY MCH 30.8 27.0 - 31.0 11/07/2016 [facility] HEMATOLOGY Platelet 109 133 - 450 11/07/2016 [facility] HEMATOLOGY MPV 8.3 7.4 - 10.4 11/07/2016 [facility] CHEM PANEL Calcium Lvl 7.5 8.5 - 10.5 11/06/2016 [facility] CHEM PANEL eGFR 43 11/06/2016 Result Comment: The eGFR is calculated [...] [facility] CHEM PANEL CO2 28 24 - 32 11/06/2016 [facility] CHEM PANEL Chloride Lvl 102 95 - 109 11/06/2016 [facility] CHEM PANEL Glucose Lvl 132 70 - 99 11/06/2016 [facility] CHEM PANEL Creatinine Lvl 1.23 0.50 - 1.40 11/06/2016 [facility] CHEM PANEL BUN 12 7 - 22 11/06/2016 [facility] CHEM PANEL Potassium Lvl 3.6 3.5 - 5.1 11/06/2016 [facility] CHEM PANEL Sodium Lvl 139 135 - 145 11/06/2016 [facility] CHEM PANEL AGAP 12.6 10.0 - 20.0 11/06/2016 [facility] HEMATOLOGY MCH 30.3 27.0 - 31.0 11/06/2016 [facility] HEMATOLOGY MCV 89.0 80.0 - 98.0 11/06/2016 [facility] HEMATOLOGY MCHC 34.0 32.0 - 36.0 11/06/2016 [facility] HEMATOLOGY WBC 11.3 3.7 - 10.4 11/06/2016 [facility] HEMATOLOGY RDW 13.8 11.5 - 14.5 11/06/2016 [facility] HEMATOLOGY Platelet 184 133 - 450 11/06/2016 [facility] HEMATOLOGY Hgb 11.1 12.0 - 16.0 11/06/2016 [facility] HEMATOLOGY RBC 3.66 4.20 - 5.40 11/06/2016 [facility] HEMATOLOGY Hct 32.6 36.0 - 48.0 11/06/2016 [facility] HEMATOLOGY MPV 8.4 7.4 - 10.4 11/06/2016 [facility] HEMATOLOGY Lymphocytes 11.6 20.0 - 40.0 11/06/2016 [facility] HEMATOLOGY Segs 79.6 45.0 - 75.0 11/06/2016 [facility] HEMATOLOGY Basophils # 0.1 0.0 - 0.2 11/06/2016 [facility] HEMATOLOGY Monocytes # 0.9 0.0 - 0.8 11/06/2016 [facility] HEMATOLOGY Monocytes 8.1 2.0 - 12.0 11/06/2016 [facility] HEMATOLOGY Basophils 0.6 0.0 - 1.0 11/06/2016 [facility] HEMATOLOGY Eosinophils 0.1 0.0 - 4.0 11/06/2016 [facility] HEMATOLOGY Lymphocytes # 1.3 1.0 - 5.5 11/06/2016 [facility] HEMATOLOGY Segs-Bands # 9.0 1.5 - 8.1 11/06/2016 [facility] ELECTROLYTES POC AGAP 18.0 10.0 - 20.0 11/05/2016 [facility] ELECTROLYTES POC Ion Ca 1.23 1.05 - 1.25 11/05/2016 [facility] ELECTROLYTES POC Glucose 104 70 - 99 11/05/2016 [facility] ELECTROLYTES POC Creatinine 1.0 0.5 - 1.4 11/05/2016 [facility] ELECTROLYTES POC Hematocrit 34.0 36.0 - 48.0 11/05/2016 [facility] ELECTROLYTES POC Hemoglobin 11.6 12.0 - 16.0 11/05/2016 [facility] ELECTROLYTES POC BUN 8 7 - 22 11/05/2016 [facility] ELECTROLYTES POC Carbon Dioxide 24 24 - 32 11/05/2016 [facility] ELECTROLYTES POC Potassium 3.2 3.5 - 5.1 11/05/2016 [facility] ELECTROLYTES POC Sodium 141 135 - 145 11/05/2016 [facility] ELECTROLYTES POC Chloride 104 95 - 109 11/05/2016 [facility] BLOOD BANK RESULTS RBC product Product available (11/05/16 5:00 AM) 11/05/2016 [facility] BLOOD BANK RESULTS Antibody Scrn Negative (11/01/16 11:15 AM) 11/01/2016 Orth[facility] and Spine BLOOD BANK RESULTS ABO/Rh O POS 11/01/2016 [facility] CHEM PANEL Bili Total 1.2 0.2 - 1.3 11/01/2016 [facility] CHEM PANEL ASPARTATE TRANSAMINASE 14 0 - 37 11/01/2016 [facility] CHEM PANEL ALANINE AMINOTRANSFERASE 20 0 - 65 11/01/2016 [facility] CHEM PANEL Alk Phos 90 39 - 136 11/01/2016 [facility] CHEM PANEL Albumin Lvl 3.5 3.5 - 5.0 11/01/2016 [facility] CHEM PANEL Total Protein 6.8 6.4 - 8.4 11/01/2016 [facility] CHEM PANEL A/G Ratio 1.1 0.7 - 1.6 11/01/2016 [facility] CHEM PANEL B/C Ratio 13 6 - 25 11/01/2016 [facility] CHEM PANEL Globulin 3.3 2.7 - 4.2 11/01/2016 [facility] HEMATOLOGY INR 1.00 0.85 - 1.17 11/01/2016 [facility] HEMATOLOGY aPTT 27.2 22.9 - 35.8 11/01/2016 [facility] HEMATOLOGY PROTIME 13.4 12.0 - 14.7 11/01/2016 [facility] HEMATOLOGY Segs-Bands # 3.2 1.5 - 8.1 11/01/2016 [facility] HEMATOLOGY Eosinophils 1.4 0.0 - 4.0 11/01/2016 [facility] HEMATOLOGY Basophils 1.4 0.0 - 1.0 11/01/2016 [facility] HEMATOLOGY Monocytes 9.5 2.0 - 12.0 11/01/2016 [facility] HEMATOLOGY Basophils # 0.1 0.0 - 0.2 11/01/2016 [facility] HEMATOLOGY Segs 54.3 45.0 - 75.0 11/01/2016 [facility] HEMATOLOGY Lymphocytes 33.4 20.0 - 40.0 11/01/2016 [facility] HEMATOLOGY Lymphocytes # 2.0 1.0 - 5.5 11/01/2016 [facility] HEMATOLOGY Monocytes # 0.6 0.0 - 0.8 11/01/2016 [facility] HEMATOLOGY Eosinophils # 0.1 0.0 - 0.5 11/01/2016 [facility] Pathology Reports No Data Provided for This Section Diagnostic Reports Report Value Date Source Spine cervical wo contrast MRI MRI CERVICAL [...] myelomalacia. 3. Multilevel severe foraminal stenosis. 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 11/08/2016 [facility] Chest 1view DX EXAM: XR CHEST 1 [...] a new right jugular central line. 11/06/2016 [facility] Spine cervical wo contrast MRI EXAM: MRI [...] Moderate bilateral neural foraminal stenosis is evident. Kuru-he-quudolcr bilateral facet arthropathy is seen. C6-C7: 3 [...] stenosis and facet arthrosis, detailed above. 08/10/2016 [facility] Consultation Notes No Data Provided for This Section Discharge Summaries No Data Provided for This Section History and Physicals No Data Provided for This Section Vital Signs Vital Sign Value Date Comments Source Weight 200 08/16/2017 [facility] Devyn Height 68 08/16/2017 [facility] [place] Temperature [...] Status Source Candelario Shepard MD PA Unknown [id number] 04/17/2014 04/17/2014 Candelario Shepard MD PA Unknown [id number] 04/17/2014 04/17/2014 MD RAÚL Linares Unknown [id number] 04/17/2014 04/17/2014 MD RAÚL Linares Unknown [id number] 04/17/2014 04/17/2014 MD RAÚL Linares Unknown [id number] 06/18/2014 06/18/2014 MD RAÚL Linares Unknown [id number] 06/18/2014 06/18/2014 Candelario Shepard MD PA Unknown [id number] 06/18/2014 06/18/2014 MD RAÚL Linares Unknown [id number] 07/29/2015 07/29/2015 MD RAÚL Linares Unknown [id number] 07/29/2015 07/29/2015 MD RAÚL Linares Unknown [id number] 08/25/2015 08/25/2015 MD RAÚL Linares Unknown [id number] 08/25/2015 08/25/2015 MD RAÚL Linares Unknown [id number] 07/12/2016 07/12/2016 Candelario Shepard [facility] Orthopedic [facility] Spine [facility] Outpatient [id number] [facility] 08/10/2016 08/11/2016 [facility] Orthopedic [facility] Spine [facility] Inpatient [id number] [facility] 11/05/2016 11/09/2016 [facility] Outpatient Imaging - [place] [facility] [id number] Lamine Lackey 08/10/2017 08/11/2017 [facility] [place] Procedures Procedure Code Date Perfomer Comments Source CABG x 3 - Coronary artery bypass grafts x 3 [id number] 02/19/2014 [facility] CABG x 3 - Coronary artery bypass grafts x 3 [id number] 02/19/2014 [facility] [place] Arthroscopy of knee [id number] 11/21/2010 [facility] Arthroscopy of knee [id number] 11/21/2010 [facility] [place] Spinal fusion<sup>1</sup> [id number] 11/21/2008 BACK SURGERY x6 [facility] Spinal fusion<sup>1</sup> [id number] 11/21/2008 BACK SURGERY x6 [facility] [place] Cholecystectomy [id number] [facility] Tubal ligation [id number] [facility] Cholecystectomy [id number] [facility] [place] Tubal ligation [id number] [facility] [place] Assessment and Plan Assessment and Plan Date Source Extracted from:Title: Progress Note Author: Candelario Hernandez MD Date: 11/08/16 Assessment/Plan 75-year-old female with past medical history of degenerative disease hypertension coronary disease and other issues who presents for continued back pain 1.DDD (degenerative disc disease), thoracolumbar Thoracic 10 lumbar 3 posterior spinal fusion with instrumentation and decompression POD #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 11/09/2016 [facility] Plan of Care No Data Provided for This Section Social History Social History Date Source Social History TypeResponse Substance Abuse Use: None. Exercise Exercise duration: 0. Alcohol Never Smoking Status Former smoker; Type: Cigarettes; Tobacco use per day: 20; Number of years: 15; Stopped at age: 32; Exposure to Tobacco Smoke None; Cigarette Smoking Last 365 Days No; Reg Smoking Cessation Counseling No 10/30/2016 [facility] Social History TypeResponse Substance Abuse Use: None. Exercise Exercise duration: 0. Alcohol Never Smoking Status Former smoker; Type: Cigarettes; Tobacco use per day: 20; Number of years: 15; Stopped at age: 32; Exposure to Tobacco Smoke None; Cigarette Smoking Last 365 Days No; Reg Smoking Cessation Counseling No 10/30/2016 [facility] [place] Social History ElementQualifiersDate Reported Smoking . Status Never Smoker May 06, 2016 Alcohol Use Yes. May 06, 2016 Alcohol Screening: Yes. May 06, 2016 Marital Status: . May 06, 2016 Do you drink alcohol? Yes. May 06, 2016 Occupation: . House May 06, 2016 05/06/2016 Candelario Shepard Family History No Data Provided for This Section Advance Directives No Data Provided for This Section Functional Status No Data Provided for This Section
[2019-06-14 11:15] VITALS: BP 129/93
--- NOTE | 2019-06-14 12:43 | Operative Report ---
DATE OF PROCEDURE: 06/14/2019 SURGEON: Tobin Cavazos MD PREOPERATIVE DIAGNOSIS: Hematuria. POSTOPERATIVE DIAGNOSIS: Hematuria. OPERATIVE PROCEDURE PERFORMED: Cystoscopy. ANESTHESIA: General anesthesia. ESTIMATED BLOOD LOSS: Minimal. INDICATIONS: Ms. Emy Hwang is a 78-year-old with a history of persistent microscopic hematuria and occasional bladder pain for which she now presents for potential management of this problem. PROCEDURE IN DETAIL: The patient was brought in the operating room, placed in supine position. After initiation of general anesthesia, was placed in the dorsal lithotomy position and prepped and draped in usual sterile fashion. Cystourethroscopy was performed using a 21-Romansh cystoscope. The anterior and posterior urethra were noted to be normal. Upon entrance into the bladder, the ureteral orifices were in normal anatomical position and producing clear efflux. There were no mucosal lesions identified. The bladder capacity was noted to be normal and appeared to fill and empty without difficulty. Of note, she had an enterocele and rectocele noted on examination, but no significant cystocele. The bladder was then drained in its entirety. The cystoscope and sheath were removed. The patient was returned to supine position and anesthesia was reversed. She was transferred to a bed and taken to the Postanesthesia Care Unit in good condition. Of note, the needle and instrument count were correct at the conclusion of the case. Tobin Cavazos MD HLW/MODL /[id number]
== END | disposition home or self-care (01) ==
LOC: OR 07:47
PROVIDERS: ATTEND Urology
DX: R31.9 Hematuria, unspecified (principal); N81.5 Vaginal enterocele; N81.6 Rectocele; I25.810 Atherosclerosis of coronary artery bypass graft(s) without angina pectoris; I10 Essential (primary) hypertension; I48.91 Unspecified atrial fibrillation; M19.90 Unspecified osteoarthritis, unspecified site; R06.02 Shortness of breath; F32.9 Major depressive disorder, single episode, unspecified; Z88.6 Allergy status to analgesic agent; Z88.8 Allergy status to other drugs, medicaments and biological substances; Z79.02 Long term (current) use of antithrombotics/antiplatelets; Z95.1 Presence of aortocoronary bypass graft; Z95.5 Presence of coronary angioplasty implant and graft
CPT/HCPCS: 36415; 52000; 80048; 85025; J0696; J1100; J2001; J2405; J2704; J3010